=== PATIENT | male | born 1955 | race Caucasian/White ===

== ENCOUNTER 2019-06-13 14:57 | Emergency (ER) | payer MEDICAID, SELFPAY ==
[2019-06-13 15:00] VITALS: BP 112/80; PULSE 110; RESP 18; TEMP 37; O2SAT 100; BMI 23.2
--- NOTE | 2019-06-13 15:25 | ED.DCSUM_ITS ---
- ER Visit Summary Date of Service: 06/13/19 Chief Complaint: Right first toe pain History of Present Illness: The patient is a 64 M with no primary care physician. He reports that he has bilateral femoropopliteal bypasses approximately 5 to [address] Gao. States that over the course the past month he has had right great toe pain. He describes it as a burning, aching pain is 710 worsening a 10 currently. Is worsened by walking. Is relieved by dependent position and rest. He reports that he has paresthesias that are chronic and unchanged. Patient reports that he has seen Dr. Cain in the past, but that his insurance is changed and he ran out of his medications 2 months ago. He is not taking his Plavix. Review of systems: General: No fever, chills, cold sweats. Cardiovascular: No chest pain, palpitations. Respiratory: No cough, shortness of breath, dyspnea on exertion. Gastrointestinal: No abdominal pain, nausea, vomiting, diarrhea, melena, or hematochezia. Genitourinary: No dysuria, frequency, hematuria. Skin: No rash. Neuro: No headache, numbness, weakness. Physical Examination: Vitals: Stable. Afebrile. General: Well-nourished and well-developed. Head: Normocephalic atraumatic. Neck: Supple, no lymphadenopathy. No JVD. Nontender. Cardiovascular: Regular rate and rhythm. No murmurs. Respiratory: No respiratory distress. Clear to auscultation bilaterally. Abdominal: Soft, nontender, nondistended, normal bowel sounds. No guarding, rebound, or peritoneal signs. Back: Nontender. Extremities: Nontender, no edema. Superficial ulcers on the bottom of both feet that extends only through the superficial layer of the epidermis only. There is no erythema or induration to suggest infection. He does have slight erythema of the anterior surface of his right foot. I am unable to appreciate a dorsalis pedis or posterior tibial pulse bilaterally. There is 3 to 4-second capillary refill. Skin: Normal color, no rash. Neurologic: Alert and oriented ?3. Cranial nerves II through XII are intact. Normal strength and sensation. Psych: Normal affect. Test Results: ABIs show 0.3 posterior tibial on the right and 0.75 posterior tibial on the left. 0.17 dorsalis pedis on the right. 0.73 dorsalis pedis on the left. He has monophasic waveforms on the right posterior tibial and dorsalis pedis. Biphasic waveforms on the left posterior tibial and dorsalis pedis pulses. Emergency Department Course and Treatment: Patient is resting comfortably without complaint. Treatment Plan: The patient was given a refill for all of his medications. He w as discussed with his vascular surgeon Dr. Gao who would like him placed on Pletal and to have him follow-up in the office. I discussed the patient this time I do not know who accepts his insurance. He will be discharged instructions follow-up Dr. Ever Lehman and/or the [facility] in 1 to 2 weeks for another exam. Return to the emergency department for any worsening symptoms. Disposition: To home in improved and stable condition. Impression: 1. Peripheral arterial disease. This note was generated with [employer] dictation software. It may contain incorrect words, spelling, and punctuation that were not noted in review of the chart prior to signing ED Disposition - Plan for ED Patient: Disposition: Home or Assisted Living Instructions: Understanding Peripheral Artery Disease Prescriptions: Atorvastatin Calcium 40 mg PO DAILY #30 tab Prescription Printed Ferrous Sulfate 325 mg PO DAILY #30 tab Prescription Printed Folic Acid 1 mg PO DAILY #30 tab Prescription Printed Methotrexate 20 mg PO Q7D #32 tab Prescription Printed Pantoprazole Sodium 1 cap PO DAILY #30 vial Prescription Printed Clopidogrel Bisulfate [Plavix] 75 mg PO DAILY #30 tab Prescription Printed Cilostazol [Pletal] 100 mg PO BIDAC #60 tab Prescription Printed Lisinopril [Prinivil] 10 mg PO DAILY #30 tab Prescription Printed traMADol [Ultram] 50 mg PO Q4H PRN PRN #14 tab PRN Reason: Pain Score 4-10/10 Prescription Printed Referrals: Ever Lehman MD [NON-STAFF] - 1-2 Weeks [facility] [NON-STAFF] - 1-2 Weeks Additional Instructions: Follow up with Dr. Gao as soon as possible. His office number is .
--- NOTE | 2019-06-13 15:34 | ART_ITS ---
Reason For Study: PAD Procedure A bilateral lower extremity continuous wave Doppler with analog waveform analysis and ankle brachial indexes. Left Segmental Pressures Left brachial= 117mmHg. Left posterior tibial artery = 119mmHg. Left dorsalis pedis artery = 116mmHg. Left digit = 73 mmHg. The left dorsalis pedis waveforms are biphasic. The left posterior tibial artery waveforms are biphasic. Right Segmental Pressures Right brachial= 158mmHg. Right posterior tibial artery = 48mmHg. Right dorsalis pedis artery = 27mmHg. The right dorsalis pedis waveforms are monophasic. The right posterior tibial artery waveforms are monophasic. Indices The right ankle brachial index by the dorsalis pedis is 0.17. The right ankle brachial index by the posterior tibial artery is 0.30. The left ankle brachial index by the dorsalis pedis is 0.73. The left ankle brachial index by the posterior tibial artery is 0.75. The left digital-brachial index is 0.46. Interpretation Summary Severe or multi segmental peripheral vascular occlusive disease right lower extremity. Possible impending limb loss. Moderately severe left lower extremity arterial occlusive disease Abnormal digital PPG's consistent with severe small vessel disease or temperature effect. Ordering Physician: Ramon Elena Performed By: Veronique Yeager RVT
[2019-06-13] MEDS: Acetaminophen 500 MG Tablet 1000 MG PO (16:02)
[2019-06-13] MEDS: Clopidogrel Bisulfate 75 MG Tablet PO (16:03)
== END 2019-06-13 16:37 | disposition home or self-care (01) ==
PROVIDERS: Emergency Provider Emergency Medicine
DX: I73.9 Peripheral vascular disease, unspecified (principal); I10 Essential (primary) hypertension; Z79.02 Long term (current) use of antithrombotics/antiplatelets; Z79.899 Other long term (current) drug therapy
CPT/HCPCS: 93922; 99283

== ENCOUNTER → 2019-12-06 10:29 | Outpatient (CLI) | payer MEDICAID, SELFPAY ==
[2019-12-06 10:03] VITALS: BMI 23.2
[2019-12-06 12:16] LABS: Absolute Lymphocyte Count 0.95 X10^3/uL (0.83-4.51); Absolute Neutrophil Count 3.9 X10^3/uL (2.0-7.7); Basophil# 0.03 X10^3/uL; Basophil% 0.5 % (0-1); Eosinophil# 0.12 X10^3/uL; Eosinophils% 2.2 % (0-5); Hematocrit 41.3 % (40-54); Hemoglobin 13.7 g/dL (13.0-16.5); Lymphocyte # 0.95 X10^3/ul (4.0); Lymphocyte % 17.2 % (19-41); Mean Corp Hgb Conc 33.2 g/dL (32-36); Mean Corpuscular Hgb 31.7 pg (27.0-32.0); Mean Corpuscular Volume 95.6 fL (80-94); Mean Platelet Vol. 9.3 fl (6.2-12.0); Monocyte# 0.52 X10^3/uL; Monocyte% 9.4 % (0-10); NRBC Flagged by Analyzer 0 % (0-5); Neutrophil # 3.89 X10^3/uL (2.7-7.7); Neutrophil % 70.3 % (47-70); Platelet Count 395 K/mm3 (150-450); RBC Distribution Width CV 13.1 % (11.6-14.6); RBC Distribution Width SD 46.1 fl (35.1-43.9); Red Blood Count 4.32 M/mm3 (4.6-6.2); White Blood Count 5.5 K/mm3 (4.4-11.0)
[2019-12-06 12:24] LABS: AST(SGOT) 30 U/L (15-37); Alanine Aminotransfer ALT/SGPT 32 U/L (16-61); Alkaline Phosphatase 81 U/L (45-117); Anion Gap 3 (5-15); BUN 17 mg/dL (7-18); BUN/Creat Ratio 18.6 RATIO (10-20); Calcium,Total 9.3 mg/dL (8.5-10.1); Chloride 100 mmol/L (98-107); Cholesterol 177 mg/dL (200); Creatinine, Serum 0.92 mg/dL (0.70-1.30); EST Glomerular Filtration Rate 89 mL/min (>60); Est Glom Filt Rate - Afr Amer 108 mL/min (>60); Globulin 4.2 g/dL (2.2-4.2); Glucose 108 mg/dL (74-106); High Density Lipoprotein 55 mg/dL; Potassium 4.9 mmol/L (3.5-5.1); Protein, Total 8.2 g/dL (6.4-8.2); Sodium Level 131 mmol/L (136-145); Triglycerides 53 mg/dL; Very Low Density Lipoprotein 11 mg/dL (5-40)
== END ==
PROVIDERS: PCP Internal Medicine; Referring Provider Internal Medicine; Visit Provider Internal Medicine
DX: I10 Essential (primary) hypertension (principal); K21.9 Gastro-esophageal reflux disease without esophagitis
CPT/HCPCS: 36415; 80053; 80061; 85025

== ENCOUNTER → 2019-12-20 12:32 | Outpatient (CLI) | payer MEDICAID, SELFPAY ==
[2019-12-06 10:03] VITALS: BMI 23.2
--- NOTE | 2019-12-20 13:30 | CT_ITS ---
STUDY: LOW DOSE CT LUNG CANCER SCREENING REASON FOR EXAM: Male, 64 years old. LUNG SCREEN/1.5PPD X 40 YR. Hx of DVT''s with bypass surgery both legs RADIATION DOSAGE (If Supplied By Facility): CTDIvol = ( 2.01 ) mGy, DLP = ( 76.00 ) mGycm TECHNIQUE: No contrast was administered. Low dose technique was utilized (average mAS-38 and kVp 120). 1.25 mm axial source images with a slice interval of 1.25-mm were reconstructed in lung windows. 2.5 mm axial source images with a slice interval of 2.5-mm were reconstructed in lung windows. 5.0 mm axial source images with a slice interval of 5.0-mm were reconstructed in soft tissue windows. Nodule measured using lung windows on PACS and/or independent workstation with automated measurement of minimum and maximum diameter. Nodule measurement reported as average diameter rounded to the nearest whole number. Growth is defined as an increase ins size of greater than 1.5 mm. COMPARISON: None. NODULES: No suspicious nodules are seen. Emphysema: Hyperinflation. Emphysematous changes in both lungs worse in the upper lobes. Mild degree of scarring in the anterior aspect of the left upper lobe as well as in the posterior medial segments of both lower lobes with bullous formation and possible bronchiectasis. There is also evidence of a honeycombing in the peripheral aspects of both lower lobes. Endobronchial lesion: None Aorta: Calcified atherosclerotic plaques of the aortic arch. Coronary arteries: Coronary artery calcification. Heart: Unremarkable. Pulmonary artery: Mediastinal nodes: Small benign-appearing mediastinal lymph nodes. Other chest and abdominal findings: Degenerative changes of the visualized thoracic spine. CT/Low Dose CT Lung Screening IMPRESSION: Lung-RADS category 2 - Continue annual screening with LDCT in 12 months. IMPORTANT NOTES FOR USE: ACR Lung-RADS Version 1.0 Assessment Categories Release Date: September 05, 2013 Category: Coded 0-4 bases on nodule(s) with highest degree of suspicion. Negative screen is defined as categories 1 and 2; a positive screen is defined as categories 3 and 4. Category 3 and 4A nodules that are unchanged on interval CT should be coded as category 2, and individuals returned to screening in 12 months. Category 4X: Category 3 or 4 nodules with additional imaging findings that increase the suspicion of lung cancer, such as spiculation, GGN that doubles in size in 1 year, enlarged lymph notes, etc. Category Modifiers: S (significant finding unrelated to lung cancer) and C (prior history of treated lung cancer) may be added to the 0-4 Lung-RADS Electronically Signed: Emmanuel Kimball, at 14:04 EDT , Service support ,
== END ==
PROVIDERS: PCP Internal Medicine; Referring Provider Nurse Practitioner Family; Visit Provider Nurse Practitioner Family
DX: Z12.2 Encounter for screening for malignant neoplasm of respiratory organs (principal); F17.209 Nicotine dependence, unspecified, with unspecified nicotine-induced disorders
CPT/HCPCS: G0297

== ENCOUNTER 2020-01-13 05:21 | Day surgery (SDC) | payer MEDICAID, SELFPAY ==
[2019-12-06 10:03] VITALS: BMI 23.2
[2019-12-20 13:09] VITALS: BMI 21.2
[2020-01-13] VITALS (9 sets, daily range): BP systolic 132–172; BP diastolic 66–102; PULSE 71–85; RESP 16; TEMP 36.1–36.7; O2SAT 96–100; BMI 21.2
[2020-01-13] MEDS: Lactated Ringers 1,000 ML 100 ML IV ×2 (06:02→07:18)
--- NOTE | 2020-01-13 06:22 | PCM.HP.STD ---
Problem List (1) Screening for intestinal cancer Status: Acute History of Present Illness Date of Admission: 01/13/20 The patient is a 64 year old M who presents for screening colonoscopy today. He has never had a previous colonoscopy. He denies any family history of colon cancer. He denies bright red blood per rectum or melena. No abdominal pain. No weight loss. No cough or shortness of breath. 4 months ago he claims he had double bypass surgery to his right lower extremity. Claims he has Buerger's disease. Past Medical History Past Medical History (Chronic Problems): Chronic Problems (Last Reviewed 12/20/19 @ 13:02 by Christy Ware) Hyperlipidemia (Chronic) Peripheral vascular disease (Chronic) Hypertension (Chronic) Medical History: Medical History (Last Reviewed 12/20/19 @ 13:02 by Christy Ware) Back problem M53.9 Bone fracture T14.8XXA Carpal tunnel syndrome G56.00 GERD (gastroesophageal reflux disease) K21.9 H/O blood clots Z86.718 High cholesterol E78.00 History of blood transfusion Z92.89 History of pneumonia Z87.01 Psoriasis (a type of skin inflammation) L40.9 Vascular disease I99.9 Vitamin deficiency E56.9 history of ulcer Chronic bronchitis J42 Hypertension I10 Allergies Penicillins Adverse Reaction (Verified 01/13/20 05:45) Nausea/Vom/Diarrhea ALSO A HIGH FEVER Home Medications: Ambulatory Orders Medication Instructions Recorded atorvastatin 40 mg tablet 40 mg PO DAILY #90 tab 12/06/19 bupropion HCl 100 mg tablet,12 hr 100 mg PO BID #60 ea 12/06/19 sustained-release cilostazol 50 mg tablet 100 mg PO BIDAC #60 tab 12/06/19 lisinopril 10 mg tablet 10 mg PO DAILY #90 tab 12/06/19 pantoprazole 40 mg tablet,delayed 40 mg PO QAM #90 tab 12/06/19 release ferrous sulfate 325 mg (65 mg 125 mg PO DAILY #90 tab 12/07/19 iron) tablet folic acid 1 mg tablet 1 mg PO DAILY #90 tab 12/07/19 methotrexate sodium 2.5 mg tablet 20 mg PO Q7D #32 tab 12/07/19 clopidogrel 75 mg tablet 75 mg PO DAILY #90 tab 12/08/19 Surgical History: Surgical History (Last Updated 12/20/19 @ 13:05 by Christy Ware) History of fasciotomy Z98.890 R leg 09/2019 - [facility] History of tonsillectomy and adenoidectomy Z98.890 Smoking Status: Current some day smoker Tobacco Use: Cigars Review of Systems Constitutional: Denies: Fever Cardiovascular: Denies: Chest Pain Respiratory: Denies: Cough, Shortness of breath at rest Gastrointestinal: Denies: Abdominal Pain, Melena Endocrine: Denies: Change in Body Habitus VTE Information - Inpt Only VTE Present on Admission: No Patient Problems: Active and Suspected Problems (Last Reviewed 12/20/19 @ 13:02 by Christy Ware) Screening for intestinal cancer (Acute) - Physical Exam Vitals/I&O's: Vital Signs Temp Pulse Resp BP Pulse Ox 98.0 F 75 16 144/77 H 98 01/13/20 05:49 01/13/20 05:49 01/13/20 05:49 01/13/20 05:49 01/13/20 05:49 Oxygen Delivery Method Room Air Weight: 139 lb 15.896 oz Body Mass Index (BMI) 21.2 General: Alert, Oriented x3, Cooperative, No apparent distress Oral: Moist Mucosa Neck: Supple Lungs: Clear to auscultation, - - Increased anterior posterior diameter Cardiovascular: Regular rate, Regular Rhythm Abdomen: Bowel Sounds Present, Soft, Non Tender Extremities: No Calf Tenderness Neurological: - - Normal cognition Psych/Mental Status: Normal Affect Current Medications Lactated Ringer's () 1,000 mls @ 100 mls/hr IV .Q10H TOYA Last Admin: 01/13/20 06:02 Dose: 100 mls/hr Documented by: Assessment/Plan All Active Problems (Last Reviewed 12/20/19 @ 13:02 by Christy Ware) Screening for intestinal cancer (Acute) I recommended the patient a screening colonoscopy with possible biopsy or polypectomy is indicated. He is aware of the technique, benefit, risk, alternatives. He presents via open access. He has never had a previous colonoscopy. We will proceed at his discretion. Lorenzo Wei M.D., F.A.C.S. Procedure Criteria Procedure Type: Elective COVID Risk Discussion: The surgeon/proceduralist and patient have discussed in detail the risk of exposure to and/or potential harm posed by the COVID-19 virus with having a surgery/procedure at this time versus the risk of delaying the surgery/procedure. It is not possible to know either the risk of delaying the surgery or procedure or chance of getting an infection with perfect accuracy, but a joint decision was made between the patient and the surgeon/proceduralist to proceed at this time with the scheduled surgery/procedure as indicated on the consent form.
--- NOTE | 2020-01-13 06:30 | COLBX_PTH ---
PATIENT: LUIS EDUARDO PRATER LOC: EN U#:[id number] AGE/SX: 64/M ROOM: RE01/13/[address]: Dr. Lorenzo Wei MD : 1955 BED: DIS: 01/13/2020 SPEC #: [id number] RECD: 01/13/20 12:06 STATUS: BRIAN DRU #: [id number] LAUREN: 01/13/20 06:[address]: Lorenzo Wei DEPT: SURGICAL PATHOLOGY RECD BY: Santos Valladares ENTERED: 01/13/20 13:05 SP TYPE: COLON BX JEREL DR: Dr. Tate Strange MD Tissues: A - Descending colon B - Sigmoid colon biopsy C - Sigmoid colon biopsy Procedures: Surgery Specimen Level IV HEADER OPERATION: Colonoscopy - open access (MOD) PRE-OP DIAGNOSIS: Screening TISSUE SUBMITTED: A - Descending polyp, B - Proximal sigmoid polyp, C - Distal sigmoid polyp biopsy MICROSCOPIC DIAGNOSIS A. Descending colon, biopsy: Tubular adenoma. B. Proximal sigmoid colon polyp, biopsy: Tubular adenoma. C. Distal sigmoid colon polyp, biopsy: Fragments of tubular adenoma. AM:vidal 01/17/20 MICROSCOPIC DESCRIPTION Slides are reviewed. GROSS DESCRIPTION A - Received in fixative is one container labeled with the patient's name and designated descending polyp. The specimen consists of a piece of britt-pink polyp measuring 0.5 x 0.5 x 0.3 cm. The specimen is totally submitted in one cassette. B - Received in fixative is one container labeled with the patient's name and designated proximal sigmoid polyp. The specimen consists of a britt-pink polyp measuring 0.7 x 0.5 x 0.3 cm. The specimen is totally submitted in one cassette. C - Received in fixative is one container labeled with the patient's name and designated distal sigmoid polyp biopsy. The specimen consists of multiple irregular fragments of light britt soft tissue that in aggregate measure 0.7 x 0.5 x 0.1 cm. The specimen is totally submitted in one cassette. / SJ:vidal 01/13/20 TC:5 CPT: 73993 x3
--- NOTE | 2020-01-13 07:10 | OP.COLON_ITS ---
Patient Name: Ishmael Roman Procedure Date: 01/13/2020 6:10 AM Date of : 1955 Age: 64 Procedure: Colonoscopy Indications: Screening for colorectal malignant neoplasm Providers: Lorenzo Wei MD Referring MD: Tate Strange MD Medicines: Midazolam 6 mg IV, Meperidine 100 mg IV Patient Profile: Last Colonoscopy: none. The patient's first colonoscopy is today. Complications: No immediate complications. Procedure: Pre-Anesthesia Assessment: - Prior to the procedure, a History and Physical was performed, and patient medications and allergies were reviewed. The patient's tolerance of previous anesthesia was also reviewed. The risks and benefits of the procedure and the sedation options and risks were discussed with the patient. All questions were answered, and informed consent was obtained. Prior Anticoagulants: The patient has taken Plavix (clopidogrel), last dose was 2 days prior to procedure. ASA Grade Assessment: II - A patient with mild systemic disease. After reviewing the risks and benefits, the patient was deemed in satisfactory condition to undergo the procedure. After I obtained informed consent, the scope was passed under direct vision. Throughout the procedure, the patient's blood pressure, pulse, and oxygen saturations were monitored continuously. The colonoscope was introduced through the anus and advanced to the cecum, identified by appendiceal orifice and ileocecal valve. The colonoscopy was performed with moderate difficulty due to a tortuous colon. Successful completion of the procedure was aided by increasing the dose of sedation medication, changing the patient to a supine position and using manual pressure. The patient tolerated the procedure well. The quality of the bowel preparation was good. The ileocecal valve and the appendiceal orifice were photographed. Moderate Sedation: Moderate (conscious) sedation was personally administered by the endoscopist. The following parameters were monitored: oxygen saturation, heart rate, blood pressure, and response to care. Total physician intraservice time was 20 minutes. Scope In: 6:35:08 AM Scope Withdrawal Time 0 hours 17 minutes 25 seconds Scope Out: 7:04:45 AM Total Procedure Duration Time 0 hours 29 minutes 37 seconds Findings: Hemorrhoids were found on perianal exam. A 8 mm polyp was found in the mid descending colon. The polyp was semi-pedunculated. The polyp was removed with a hot snare. Resection and retrieval were complete. A 8 mm polyp was found in the proximal sigmoid colon. The polyp was semi-pedunculated. The polyp was removed with a hot snare. Resection and retrieval were complete. A 7 mm polyp was found in the distal sigmoid colon. The polyp was sessile. The polyp was removed with a cold biopsy forceps. Resection and retrieval were complete. Multiple diverticula were found in the sigmoid colon and descending colon. Impression: - Hemorrhoids found on perianal exam. - One 8 mm polyp in the mid descending colon, removed with a hot snare. Resected and retrieved. - One 8 mm polyp in the proximal sigmoid colon, removed with a hot snare. Resected and retrieved. - One 7 mm polyp in the distal sigmoid colon, removed with a cold biopsy forceps. Resected and retrieved. - Diverticulosis in the sigmoid colon and in the descending colon. Recommendation: - Discharge patient to home. - Resume previous diet. - Continue present medications. - Repeat colonoscopy in 5 years for surveillance based on pathology results. - Telephone my office for pathology results in 1 week. Procedure Code(s): --- Professional --- 63481, Colonoscopy, flexible; with removal of tumor(s), polyp(s), or other lesion(s) by snare technique 64718, 59, Colonoscopy, flexible; with biopsy, single or multiple 68655, 59, Moderate sedation services provided by the same physician or other qualified health rn progressive care unit performing the diagnostic or therapeutic service that the sedation supports, requiring the presence of an independent trained observer to assist in the monitoring of the patient's level of consciousness and physiological status; initial 15 minutes of intraservice time, patient age 5 years or older Diagnosis Code(s): --- Professional --- Z12.11, Encounter for screening for malignant neoplasm of colon K64.9, Unspecified hemorrhoids D12.4, Benign neoplasm of descending colon D12.5, Benign neoplasm of sigmoid colon K57.30, Diverticulosis of large intestine without perforation or abscess without bleeding CPT copyright 2017 [employer]. All rights reserved. The codes documented in this report are preliminary and upon hand thermal cutter review may be revised to meet current compliance requirements. Lorenzo Wei MD 01/13/2020 7:10:23 AM This report has been signed electronically. Number of Addenda: 0 Note Initiated On: 01/13/2020 6:10 AM
--- NOTE | 2020-01-13 07:10 | OP.CCLET_ITS ---
01/13/2020 Tate Strange MD [address] [place] [address] [place] [address] Re : Colonoscopy procedure for Ishmael Roman Dear Dr. Strange This procedure was performed on Monday, January 13, 2020. My impressions and recommendations are as follows: Impressions : - Hemorrhoids found on perianal exam. - One 8 mm polyp in the mid descending colon, removed with a hot snare. Resected and retrieved. - One 8 mm polyp in the proximal sigmoid colon, removed with a hot snare. Resected and retrieved. - One 7 mm polyp in the distal sigmoid colon, removed with a cold biopsy forceps. Resected and retrieved. - Diverticulosis in the sigmoid colon and in the descending colon. Recommendations : - Discharge patient to home. - Resume previous diet. - Continue present medications. - Repeat colonoscopy in 5 years for surveillance based on pathology results. - Telephone my office for pathology results in 1 week. My findings are described in the full procedure note, which is enclosed. If I can be of further assistance, please feel free to contact me at Doctor phone number(s): Work: . Sincerely, Lorenzo Wei MD 01/13/2020 7:10:23 AM This report has been signed electronically.
== END 2020-01-13 08:15 | disposition home or self-care (01) ==
LOC: EN 05:23 → AC 05:23
PROVIDERS: Anesthesiology; PCP Internal Medicine; Referring Provider Internal Medicine; Visit Provider Surgery
PROC: 0DJD8ZZ Inspection of Lower Intestinal Tract, Via Natural or Artificial Opening Endoscopic (ICD-10-PCS; CPT 45378; principal; 2020-01-13 06:25)
DX: Z12.11 Encounter for screening for malignant neoplasm of colon (principal); D12.4 Benign neoplasm of descending colon; D12.5 Benign neoplasm of sigmoid colon; K64.9 Unspecified hemorrhoids; K57.30 Diverticulosis of large intestine without perforation or abscess without bleeding; K21.9 Gastro-esophageal reflux disease without esophagitis; I73.9 Peripheral vascular disease, unspecified; I10 Essential (primary) hypertension; E78.00 Pure hypercholesterolemia, unspecified; F17.290 Nicotine dependence, other tobacco product, uncomplicated; Z88.0 Allergy status to penicillin; Z79.02 Long term (current) use of antithrombotics/antiplatelets; Z79.899 Other long term (current) drug therapy; Z11.59 Encounter for screening for other viral diseases
CPT/HCPCS: 45380; 45385; 87635; 88305; 94799; 99152; 99153; C9803; J7120; U0003

== ENCOUNTER → 2020-03-06 11:04 | Outpatient (CLI) | payer MEDICAID, SELFPAY ==
[2020-03-06 10:00] VITALS: BMI 21.7
[2020-03-06 13:15] LABS: Anion Gap 6 (5-15); BUN 13 mg/dL (7-18); BUN/Creat Ratio 14.5 RATIO (10-20); Calcium,Total 9.6 mg/dL (8.5-10.1); Chloride 102 mmol/L (98-107); EST Glomerular Filtration Rate 91 mL/min (>60); Est Glom Filt Rate - Afr Amer 110 mL/min (>60); Glucose 99 mg/dL (74-106); Potassium 5.3 mmol/L (3.5-5.1); Sodium Level 136 mmol/L (136-145)
== END ==
PROVIDERS: PCP Internal Medicine; Referring Provider Internal Medicine; Visit Provider Internal Medicine
DX: I10 Essential (primary) hypertension (principal)
CPT/HCPCS: 36415; 80048

== ENCOUNTER → 2020-04-12 12:57 | Outpatient (CLI) | payer MEDICAID, SELFPAY ==
[2020-03-06 10:00] VITALS: BMI 21.7
[2020-04-12 14:53] LABS: Anion Gap 8 (5-15); BUN 14 mg/dL (7-18); Calcium,Total 9.4 mg/dL (8.5-10.1); Chloride 101 mmol/L (98-107); Creatinine, Serum 0.87 mg/dL (0.70-1.30); EST Glomerular Filtration Rate 94 mL/min (>60); Est Glom Filt Rate - Afr Amer 114 mL/min (>60); Glucose 80 mg/dL (74-106); Potassium 4.2 mmol/L (3.5-5.1); Sodium Level 135 mmol/L (136-145)
== END ==
PROVIDERS: PCP Internal Medicine; Referring Provider Internal Medicine; Visit Provider Internal Medicine
DX: E87.5 Hyperkalemia (principal)
CPT/HCPCS: 36415; 80048

== ENCOUNTER → 2020-06-04 11:20 | Outpatient (CLI) | payer MEDICAID, SELFPAY ==
[2020-06-04 12:42] LABS: Absolute Lymphocyte Count 0.69 X10^3/uL (0.83-4.51); Absolute Neutrophil Count 7.2 X10^3/uL (2.0-7.7); Basophil# 0.02 X10^3/uL; Basophil% 0.2 % (0-1); Eosinophil# 0.15 X10^3/uL; Eosinophils% 1.8 % (0-5); Hematocrit 33.6 % (40-54); Lymphocyte # 0.69 X10^3/ul (4.0); Lymphocyte % 8.1 % (19-41); Mean Corp Hgb Conc 32.7 g/dL (32-36); Mean Corpuscular Hgb 31.9 pg (27.0-32.0); Mean Corpuscular Volume 97.4 fL (80-94); Mean Platelet Vol. 9.4 fl (6.2-12.0); Monocyte# 0.47 X10^3/uL; Monocyte% 5.5 % (0-10); NRBC Flagged by Analyzer 0 % (0-5); Neutrophil # 7.18 X10^3/uL (2.7-7.7); Neutrophil % 83.9 % (47-70); Platelet Count 401 K/mm3 (150-450); RBC Distribution Width CV 14.1 % (11.6-14.6); RBC Distribution Width SD 49.1 fl (35.1-43.9); Red Blood Count 3.45 M/mm3 (4.6-6.2); White Blood Count 8.6 K/mm3 (4.4-11.0)
--- NOTE | 2020-06-04 13:08 | VDLE_ITS ---
Reason For Study: Swelling RIGHT GSV is normal. CFV is compressible, spontaneous, phasic, competent and demonstrates normal augmentation. FV is compressible, spontaneous, phasic, competent and demonstrates normal augmentation. POP V is compressible, spontaneous, phasic, competent and demonstrates normal augmentation. T/P Trunk is compressible. PTV is compressible. RT PerV is compressible. INCIDENTAL FINDINGS No flow noted in the rigth FA, Charlee and Bypass graft from prox thigh to mid calf. Graft anast. with PHOTOGRAMMETRY AIRPLANE PILOT distal is occluded. Procedure This is a venous duplex using B-mode, color flow and spectral Doppler. Exam performed in department. A preliminary report was called and/or faxed to [facility]. Interpretation Summary There is no evidence of right lower extremity deep vein thrombosis. Right great saphenous vein appears patent and compressible segmentally. Incidental finding demonstrating a bypass graft from the proximal thigh to the mid calf which is thrombosed. Incidental findings suggesting no flow in the right femoral artery, popliteal artery, posterior tibial artery. Ordering Physician: Tate Strange Referring Physician: Tate Strange Performed By: Veronique Yeager RVT
[2020-06-04 13:21] LABS: ALB/GLOB Ratio 0.9 RATIO (0.9-2.4); AST(SGOT) 26 U/L (15-37); Alanine Aminotransfer ALT/SGPT 16 U/L (16-61); Albumin, Serum 3.6 g/dL (3.2-5.0); Alkaline Phosphatase 88 U/L (45-117); Anion Gap 9 (5-15); BUN 13 mg/dL (7-18); Calcium,Total 8.7 mg/dL (8.5-10.1); Chloride 102 mmol/L (98-107); EST Glomerular Filtration Rate 80 mL/min (>60); Est Glom Filt Rate - Afr Amer 97 mL/min (>60); Glucose 82 mg/dL (74-106); Potassium 4.8 mmol/L (3.5-5.1); Protein, Total 7.6 g/dL (6.4-8.2); Sodium Level 136 mmol/L (136-145)
== END ==
PROVIDERS: PCP Internal Medicine; Referring Provider Internal Medicine; Visit Provider Internal Medicine
DX: M79.89 Other specified soft tissue disorders (principal); M79.671 Pain in right foot; L40.9 Psoriasis, unspecified
CPT/HCPCS: 36415; 80053; 85025; 93971

== ENCOUNTER → 2020-07-19 13:49 | Outpatient (CLI) | payer MEDICAID, SELFPAY ==
--- NOTE | 2020-07-19 13:50 | ECHOD_ITS ---
Reason For Study: MURMUR Procedure This was a 2D Doppler, Color Flow transthoracic echocardiogram. Exam performed in department. Left Ventricle Normal LV size. Left ventricular systolic function is normal. The estimated ejection fraction is 65 %. Stage 1 diastolic dysfunction. No regional wall motion abnormalities noted. Right Ventricle Normal RV size. Normal systolic function. Atria Normal left atrium. Normal right atrium. Mitral Valve There is severe mitral annular calcification. Mild (1+) mitral valve insufficiency. Tricuspid Valve Normal tricuspid valve. Mild (1+) tricuspid valve insufficiency. Pulmonary artery systolic pressure is 24 mmHg. Aortic Valve Trisinus/trileaflet aortic valve. Pulmonic Valve Normal pulmonic valve. Great Vessels Normal aortic root. The pulmonary artery is normal size. Normal inferior vena cava. Pericardium/Pleural No pericardial effusion. MMode/2D Measurements & Calculations LVIDd: 4.2 cm IVSd: 1.1 cm LAV(MOD-bp): 40.6 ml LVIDs: 2.8 cm LVPWd: 1.1 cm LAV(MOD-bp) Indexed: 22.6 ml/m2 RVDd: 3.3 cm FS: 33.2 % LAV(MOD-sp2): 36.4 ml LAV(MOD-sp4): 38.1 ml LA dimension(2D): 3.0 cm LA A4 area: 13.8 cm2 RA A4 area: 12.8 cm2 Time Measurements MV dec time: 0.15 sec Doppler Measurements & Calculations MV E max alok: 115.8 cm/sec Lat Peak E' Alok: 9.2 cm/sec Med Peak E' Alok: 7.1 cm/sec MV A max alok: 155.5 cm/sec E/E' lat: 12.6 E/E' med: 16.2 MV E/A: 0.74 MV V2 max: 159.2 cm/sec Ao V2 max: 257.6 cm/sec LV V1 max: 87.6 cm/sec MV max P.1 mmHg Ao max P.6 mmHg LV V1 max P.1 mmHg MV V2 mean: 98.0 cm/sec Ao V2 mean: 189.4 cm/sec LV V1 mean P.9 mmHg MV mean P.3 mmHg Ao mean P.6 mmHg LV V1 mean: 66.4 cm/sec MV V2 VTI: 23.8 cm Ao V2 VTI: 41.8 cm LV V1 VTI: 16.6 cm PA V2 max: 125.8 cm/sec TR max alok: 231.8 cm/sec TR max P.8 mmHg Interpretation Summary Normal LV size. Left ventricular systolic function is normal. The estimated ejection fraction is 65 %. Mild (1+) mitral valve insufficiency. Stage 1 diastolic dysfunction. There is severe mitral annular calcification. Ordering Physician: Alie^Tate^^^ Referring Physician: Tate Strange Performed By: Inna Manuel, RDCS, RVT
== END ==
PROVIDERS: PCP Internal Medicine; Referring Provider Internal Medicine; Visit Provider Internal Medicine
DX: I10 Essential (primary) hypertension (principal); R01.1 Cardiac murmur, unspecified
CPT/HCPCS: 93306

== ENCOUNTER 2020-08-23 15:08 | Outpatient (RCR) | payer MEDICAID, SELFPAY ==
[2020-08-22 14:09] VITALS: BMI 18.5
== END 2020-10-16 23:59 ==
LOC: IMMUN 15:08
PROVIDERS: PCP Internal Medicine; Visit Provider Family Medicine
DX: Z23 Encounter for immunization (principal)
CPT/HCPCS: 0001A; 0002A; 91300

== ENCOUNTER → 2020-09-03 10:10 | Outpatient (CLI) | payer MEDICAID, SELFPAY ==
[2020-09-03 12:28] LABS: Absolute Lymphocyte Count 0.67 X10^3/uL (0.83-4.51); Absolute Neutrophil Count 2.7 X10^3/uL (2.0-7.7); Basophil# 0.02 X10^3/uL; Basophil% 0.5 % (0-1); Eosinophil# 0.09 X10^3/uL; Eosinophils% 2.3 % (0-5); Hemoglobin 11.5 g/dL (13.0-16.5); Lymphocyte # 0.67 X10^3/ul (0.83-4.51); Lymphocyte % 17.5 % (19-41); Mean Corp Hgb Conc 31.9 g/dL (32-36); Mean Corpuscular Hgb 31.9 pg (27.0-32.0); Mean Corpuscular Volume 99.7 fL (80-94); Monocyte# 0.36 X10^3/uL; Monocyte% 9.4 % (0-10); NRBC Flagged by Analyzer 0 % (0-5); Neutrophil # 2.68 X10^3/uL (2.7-7.7); Platelet Count 360 K/mm3 (150-450); RBC Distribution Width SD 58.1 fl (35.1-43.9); Red Blood Count 3.61 M/mm3 (4.6-6.2); White Blood Count 3.8 K/mm3 (4.4-11.0)
[2020-09-03 13:13] LABS: AST(SGOT) 21 U/L (15-37); Alanine Aminotransfer ALT/SGPT 30 U/L (16-61); Albumin, Serum 3.7 g/dL (3.2-5.0); Alkaline Phosphatase 81 U/L (45-117); Anion Gap 7 (5-15); BUN 10 mg/dL (7-18); BUN/Creat Ratio 13.7 RATIO (10-20); Calcium,Total 9.2 mg/dL (8.5-10.1); Chloride 96 mmol/L (98-107); Creatinine, Serum 0.73 mg/dL (0.70-1.30); EST Glomerular Filtration Rate 115 mL/min (>60); Est Glom Filt Rate - Afr Amer 139 mL/min (>60); Globulin 3.8 g/dL (2.2-4.2); Glucose 78 mg/dL (74-106); Potassium 4.3 mmol/L (3.5-5.1); Protein, Total 7.5 g/dL (6.4-8.2); Sodium Level 131 mmol/L (136-145)
== END ==
PROVIDERS: PCP Internal Medicine; Visit Provider Internal Medicine
DX: L40.9 Psoriasis, unspecified (principal)
CPT/HCPCS: 36415; 80053; 85025

== ENCOUNTER → 2020-12-03 11:14 | Outpatient (CLI) | payer MEDICAID, SELFPAY ==
[2020-12-03 10:59] VITALS: BMI 18.5
[2020-12-03 12:23] LABS: Absolute Lymphocyte Count 1.04 X10^3/uL (0.83-4.51); Absolute Neutrophil Count 4.7 X10^3/uL (2.0-7.7); Basophil# 0.04 X10^3/uL; Basophil% 0.6 % (0-1); Eosinophil# 0.13 X10^3/uL; Hematocrit 39.9 % (40-54); Lymphocyte # 1.04 X10^3/ul (0.83-4.51); Lymphocyte % 16.1 % (19-41); Mean Corp Hgb Conc 32.6 g/dL (32-36); Mean Corpuscular Hgb 31.6 pg (27.0-32.0); Mean Corpuscular Volume 96.8 fL (80-94); Mean Platelet Vol. 9.3 fl (6.2-12.0); Monocyte# 0.55 X10^3/uL; Monocyte% 8.5 % (0-10); NRBC Flagged by Analyzer 0 % (0-5); Neutrophil # 4.67 X10^3/uL (2.7-7.7); Neutrophil % 72.5 % (47-70); Platelet Count 393 K/mm3 (150-450); RBC Distribution Width CV 15.3 % (11.6-14.6); RBC Distribution Width SD 53.8 fl (35.1-43.9); Red Blood Count 4.12 M/mm3 (4.6-6.2); White Blood Count 6.5 K/mm3 (4.4-11.0)
[2020-12-03 12:48] LABS: ALB/GLOB Ratio 0.9 RATIO (0.9-2.4); AST(SGOT) 21 U/L (15-37); Alanine Aminotransfer ALT/SGPT 29 U/L (16-61); Albumin, Serum 3.7 g/dL (3.2-5.0); Alkaline Phosphatase 82 U/L (45-117); Anion Gap 5 (5-15); BUN 15 mg/dL (7-18); Chloride 104 mmol/L (98-107); Creatinine, Serum 0.71 mg/dL (0.70-1.30); EST Glomerular Filtration Rate 118 mL/min (>60); Est Glom Filt Rate - Afr Amer 143 mL/min (>60); Globulin 4.3 g/dL (2.2-4.2); Glucose 97 mg/dL (74-106); Potassium 4.5 mmol/L (3.5-5.1); Sodium Level 135 mmol/L (136-145)
== END ==
PROVIDERS: PCP Internal Medicine; Referring Provider Internal Medicine; Visit Provider Internal Medicine
DX: I10 Essential (primary) hypertension (principal); L40.9 Psoriasis, unspecified
CPT/HCPCS: 36415; 80053; 85025

== ENCOUNTER → 2021-03-04 14:16 | Outpatient (CLI) | payer MEDICAID, SELFPAY ==
[2021-03-04 15:30] LABS: Absolute Lymphocyte Count 1.32 X10^3/uL (0.83-4.51); Absolute Neutrophil Count 2.7 X10^3/uL (2.0-7.7); Basophil# 0.04 X10^3/uL; Basophil% 0.9 % (0-1); Eosinophils% 2.2 % (0-5); Hematocrit 37.6 % (40-54); Lymphocyte # 1.32 X10^3/ul (0.83-4.51); Lymphocyte % 28.4 % (19-41); Mean Corp Hgb Conc 31.9 g/dL (32-36); Mean Corpuscular Hgb 31.2 pg (27.0-32.0); Mean Corpuscular Volume 97.7 fL (80-94); Mean Platelet Vol. 9.7 fl (6.2-12.0); Monocyte# 0.51 X10^3/uL; NRBC Flagged by Analyzer 0 % (0-5); Neutrophil # 2.67 X10^3/uL (2.7-7.7); Neutrophil % 57.3 % (47-70); Platelet Count 437 K/mm3 (150-450); RBC Distribution Width CV 16.8 % (11.6-14.6); RBC Distribution Width SD 60.4 fl (35.1-43.9); Red Blood Count 3.85 M/mm3 (4.6-6.2); White Blood Count 4.7 K/mm3 (4.4-11.0)
[2021-03-04 15:57] LABS: AST(SGOT) 23 U/L (15-37); Alanine Aminotransfer ALT/SGPT 30 U/L (16-61); Albumin, Serum 3.8 g/dL (3.2-5.0); Alkaline Phosphatase 73 U/L (45-117); Anion Gap 7 (5-15); BUN 12 mg/dL (7-18); BUN/Creat Ratio 14.4 RATIO (10-20); Calcium,Total 8.9 mg/dL (8.5-10.1); Chloride 106 mmol/L (98-107); Creatinine, Serum 0.83 mg/dL (0.70-1.30); EST Glomerular Filtration Rate 99 mL/min (>60); Est Glom Filt Rate - Afr Amer 120 mL/min (>60); Globulin 3.7 g/dL (2.2-4.2); Glucose 82 mg/dL (74-106); Protein, Total 7.5 g/dL (6.4-8.2); Sodium Level 140 mmol/L (136-145)
== END ==
PROVIDERS: PCP Internal Medicine; Visit Provider Internal Medicine
DX: L40.9 Psoriasis, unspecified (principal)
CPT/HCPCS: 36415; 80053; 85025

== ENCOUNTER 2021-06-18 15:39 | Outpatient (CLI) | payer MEDICAID, SELFPAY ==
[2021-06-18 16:44] LABS: Absolute Lymphocyte Count 1.22 X10^3/uL (0.83-4.51); Absolute Neutrophil Count 4.6 X10^3/uL (2.0-7.7); Basophil# 0.03 X10^3/uL; Basophil% 0.5 % (0-1); Eosinophil# 0.07 X10^3/uL; Eosinophils% 1.1 % (0-5); Hematocrit 36.3 % (40-54); Hemoglobin 12.2 g/dL (13.0-16.5); Lymphocyte # 1.22 X10^3/ul (0.83-4.51); Lymphocyte % 18.8 % (19-41); Mean Corp Hgb Conc 33.6 g/dL (32-36); Mean Corpuscular Hgb 30.9 pg (27.0-32.0); Mean Corpuscular Volume 91.9 fL (80-94); Mean Platelet Vol. 9.4 fl (6.2-12.0); Monocyte# 0.54 X10^3/uL; Monocyte% 8.3 % (0-10); NRBC Flagged by Analyzer 0 % (0-5); Neutrophil # 4.62 X10^3/uL (2.7-7.7); Neutrophil % 71.1 % (47-70); Platelet Count 351 K/mm3 (150-450); RBC Distribution Width CV 15.4 % (11.6-14.6); RBC Distribution Width SD 51.5 fl (35.1-43.9); Red Blood Count 3.95 M/mm3 (4.6-6.2); White Blood Count 6.5 K/mm3 (4.4-11.0)
[2021-06-18 17:05] LABS: ALB/GLOB Ratio 0.9 RATIO (0.9-2.4); AST(SGOT) 23 U/L (15-37); Alanine Aminotransfer ALT/SGPT 27 U/L (16-61); Albumin, Serum 3.6 g/dL (3.2-5.0); Alkaline Phosphatase 102 U/L (45-117); Anion Gap 10 (5-15); BUN 25 mg/dL (7-18); BUN/Creat Ratio 10.8 RATIO (10-20); Calcium,Total 8.9 mg/dL (8.5-10.1); Chloride 96 mmol/L (98-107); Creatinine, Serum 2.31 mg/dL (0.70-1.30); EST Glomerular Filtration Rate 30 mL/min (>60); Est Glom Filt Rate - Afr Amer 37 mL/min (>60); Globulin 4.2 g/dL (2.2-4.2); Glucose 92 mg/dL (74-106); Protein, Total 7.8 g/dL (6.4-8.2); Sodium Level 131 mmol/L (136-145)
== END 2021-06-18 23:59 | disposition home or self-care (01) ==
LOC: BIMLAB 15:40
PROVIDERS: PCP Internal Medicine; Referring Provider Internal Medicine; Visit Provider Internal Medicine
DX: I10 Essential (primary) hypertension (principal)
CPT/HCPCS: 36415; 80053; 85025

== ENCOUNTER → 2021-11-12 | Outpatient (CLI) | payer MEDICAID, SELFPAY ==
--- NOTE | 2021-11-12 15:52 | CT_ITS ---
STUDY: CT CHEST WITHOUT CONTRAST- LOW DOSE SCREENING PROTOCOL REASON FOR EXAM: Male, 66 years old. Current smoker. 41 pack per year history. No current symptoms of lung cancer or pulmonary infection. Shared decision-making with referring PCP documented in patient''s record. RADIATION DOSAGE (If Supplied By Facility): CTDIvol = ( 3.02 ) mGy, DLP = ( 118.52 ) mGycm TECHNIQUE: Low dose screening CT examination performed from the base of the neck to the upper abdomen. Sagittal and coronal reformatted images performed. Sagittal and coronal MIP images provided. The measurements provided are average, rounded measurements per ACR guidelines. COMPARISON: 12/20/2019 FINDINGS: Mild emphysema. 1 cm noncalcified nodule in the left lower lobe of the lungs on image 181 and correlation with PET CT scan is recommended. If PET negative, follow-up CT is recommended in 6 months to document stability. There is no demonstrated pleural abnormality. Normal heart and pericardium. There are calcifications of the coronary arteries. Normal mediastinum. Normal hilar regions. Normal unenhanced pulmonary arteries. Normal aorta arch and descending thoracic aorta. Normal osseous structures. There is no demonstrated abnormality of the visualized upper abdomen. CT/Low Dose CT Lung Screening IMPRESSION: 1. Mild emphysema with a new 1 cm noncalcified left lower lobe nodule and follow-up PET CT scan is recommended. 2. Incidental findings include calcified coronary plaque. ASSESSMENT CATEGORY: LungRADS 4A - Suspicious. Recommend follow up LDCT in 3 months. PET/CT may be used if there is an 8 mm or larger solid component. Electronically Signed: Jose F Pickard MD at 17:09 EDT ,
== END | disposition home or self-care (01) ==
LOC: CT 15:42
PROVIDERS: PCP Internal Medicine; Referring Provider Nurse Practitioner Family; Visit Provider Nurse Practitioner Family
DX: Z12.2 Encounter for screening for malignant neoplasm of respiratory organs (principal); Z87.891 Personal history of nicotine dependence
CPT/HCPCS: 71271

== ENCOUNTER → 2021-12-04 | Outpatient (CLI) | payer MEDICAID, SELFPAY ==
--- NOTE | 2021-12-04 14:45 | PET_ITS ---
EXAMINATION: FDG PET-CT INDICATIONS: A 66-year-old male with history of pulmonary nodularity. COMPARISON EXAMINATION: CT of the chest report dated 11/12/21 INDEX LESION SIZE SUV INTERPRETATION Left lung-left lower lobe 8.9-mm 3.6 Fulfills quantitative criteria for viable neoplasm, histopathologic analysis recommended NON-INDEX LESION SIZE SUV INTERPRETATION Bilateral thoracic perihilum 3.0 Quantitative criteria for viable neoplasm are not fulfilled Anterior oral cavity 7.8 (max) Clinical examination recommended, no discernible soft tissue mass formation TECHNIQUE: Following the intravenous administration of 9.63 mCi of F-18 deoxyglucose via the right antecubital fossa, multiplanar image acquisitions of the neck, chest, abdomen and pelvis to level of mid thigh, obtained at one hour post radiopharmaceutical administration contemporaneously interpreted with the current CT of the neck, chest, abdomen and pelvis, to level of mid thigh, dated 12/04/[address] of the chest report dated 11/12/21 reveals: BLOOD GLUCOSE LEVEL:?? 99 mg/dl?HEIGHT:?68 inches?WEIGHT: 140 lbs. FINDINGS: Head/Neck: There is increased radiopharmaceutical concentration identified in the oral cavity anteriorly to the left of the midline. Uptake appears associated with soft tissue musculature without evidence of asymmetric soft tissue thickening generating a calculated standard uptake value of 7.8. There is no evidence of abnormal increased glucose metabolism in the pharyngeal mucosal space, parapharyngeal space, bilateral-lateral and anterior neck, hypopharynx and distribution of the laryngeal structures. The visualized portion of the cerebral cortical-subcortical structures demonstrate symmetric and preserved glucose metabolism. CHEST: A focus of increased glucose metabolism is identified in the left lower posterior lung zone generating a calculated maximal standard uptake value of 3.6. The maximal axial diameter of the metabolic, morphologic abnormality is 8.9-mm. Mild increased glucose metabolism is identified in the carinal mediastinum and bilateral thoracic perihilum generating a calculated maximal standard uptake value of 3.1. Quantitative criteria for viable neoplasm are not fulfilled. Mild increased glucose metabolism is identified in the right lower posteromedial lung zone generating a calculated maximal standard uptake value of 1.6. Prominent radiopharmaceutical concentration is identified in the left ventricular myocardium commensurate with the [place]. Pertinent chest CT findings are as follows. Subtle paraseptal emphysematous changes are noted in the bilateral upper lung zones. Right-left axillary soft tissue densities are non-glucose avid. There is atherosclerotic calcification defined in the thoracic aorta without evidence of dilatation-aneurysm formation. Coronary arterial calcification is observed. Abdomen/Pelvis: Normal physiologic distribution of the radiopharmaceutical is apparent in the hepatic and splenic parenchyma, both renal units, bladder and visualized intestinal tract. Pertinent abdomen and pelvis CT findings are as follows. There is atherosclerotic calcification defined in the abdominal aorta without evidence of dilatation-aneurysm formation. Abdominal-pelvic arterial calcification is observed. An aortic bi-iliac graft placement is noted. The maximal axial diameter of the abdominal aorta is 36.7-mm. Bilateral inguinal soft tissue densities are non-glucose avid. Skeletal: Degenerative changes demonstrate no evidence of increased glucose metabolism. There are no well-defined sclerotic-lytic changes manifest on review of the appendicular-axial skeletal structures. PET/PET/CT Tumor Base -Thigh Init IMPRESSION: 1. ABNORMAL EXAMINATION INDICATIVE OF MALIGNANT VIABLE NEOPLASM. 2. Increased glucose concentration identified in the left hemithorax pulmonary parenchyma, left lower lobe, fulfills quantitative criteria for viable neoplasm. Histopathologic analysis is recommended. 3. The asymmetric increase in tracer uptake noted in the oral cavity anteriorly to the left of the midline may be further investigated with clinical examination. No definitive soft tissue abnormality is noted in the analogous location. 4. The bilateral thoracic perihilar increase in radiopharmaceutical concentration does not fulfill quantitative criteria for viable neoplasm. (Wm et al, Journal of Clinical Oncology 16:2142, 1998). Electronic Signature Jose F Ball D.O. Accurate Quantification of SUVs for this report are calculated using the exclusive [employer]. ([place].S. Patent No. [phone] [id number] 983). Standardization and correction of the FDG SUV metric via [employer] technology allow for vendor non-specific objective quantitative examination comparison and optimization of the sensitivity and specificity of the FDG PET-CT examination. Electronically Signed: Jose F Ball, at 7:53 EDT ,
== END | disposition home or self-care (01) ==
LOC: ONC 14:18
PROVIDERS: PCP Internal Medicine; Referring Provider Internal Medicine Critical Care Medicine; Visit Provider Internal Medicine Critical Care Medicine
DX: R91.1 Solitary pulmonary nodule (principal)
CPT/HCPCS: 78815; A9552

== ENCOUNTER → 2021-12-23 | Outpatient (CLI) | payer MEDICAID, SELFPAY ==
--- NOTE | 2021-12-23 15:16 | PFTCOMP ---
COMPLETE PULMONARY FUNCTION TEST INTERPRETATION Brief HPI: Patient is a 66-year-old male, currently under the care of myself, who presents to [facility] for complete pulmonary function tests secondary to diagnosis of dyspnea. Respiratory therapist reports good effort and reproducible results. Interpretation: Forced expiration spirometry shows no large airways obstructive ventilatory defect with an FEV1 of 96% predicted. There is no significant bronchodilator response by strict ATS criteria. Spirograms are of good quality and plateau slowly, indicating slowly emptying areas of the lungs. The respiratory flow volume loop shows decreased expiratory flow rates at high lung volumes consistent with small airways obstruction. Patient may have an element of flattening of the inspiratory limb suggestive of an extrathoracic variable airway obstruction. Lung volumes by body plethysmography show a normal total lung capacity at 7.03 L, 115% predicted. All other lung volumes are within normal limits. Diffusion capacity by carbon monoxide is at the lower limit of normal at 71% predicted. The airway resistance is normal. No previous pulmonary function tests were available for review. Impression: Grossly normal pulmonary function test with some stigmata of possible small airways disease and early COPD
== END | disposition home or self-care (01) ==
LOC: PSN 09:24
PROVIDERS: PCP Internal Medicine; Visit Provider Internal Medicine Critical Care Medicine
DX: R06.00 Dyspnea, unspecified (principal)
CPT/HCPCS: 94060; 94726; 94729

== ENCOUNTER → 2021-12-25 | Outpatient (CLI) | payer MEDICAID, SELFPAY ==
[2021-12-25 12:42] VITALS: PULSE 114; PULSE 115; PULSE 120; PULSE 122; PULSE 125; PULSE 126; PULSE 127; O2SAT 94; O2SAT 95; O2SAT 96; O2SAT 97; O2SAT 98
--- NOTE | 2021-12-25 12:45 | CPS ---
PATIENT TESTING PERFORMED WITH PATIENT ON CRUTCHES- HE HAS USED THEM FOR PAST 2 YEARS D/T NEEDING PROSTHETIC LEG REPLACED. HE STATES HE IS MODERATELY SOB AT BASELINE, WHICH DID NOT CHANGE MUCH WITH TESTING. HR ALSO ELEVATED AT BASELINE, ALSO DID NOT CHANGE SIGNIFICANTLY WITH TESTING. PT DID NOT REQUEST OR REQUIRE ANY REST BREAKS THROUGHOUT TESTING.
--- NOTE | 2021-12-25 14:13 | PCM.PSN.6M ---
PSN 6 Minute Walk Test 6 Minute Walk Test 6 Minute Walk Test: 6 Minute Walk Test PSN:6-Minute Walk Test Start: 12/25/21 12:42 Freq: Status: Active Protocol: RESP.6MINW Document 12/25/21 12:42 [facility] (Rec: 12/25/21 12:49 [facility] [id number]) 6 Minute Walk Test Date Performed 12/25/21 Time Performed 12:30 Height 5 ft 8 in Weight: 63.503 kg Weight in Pounds 140.[address]: Robert Blackburn Assistive device used: Crutches Pre-test Oxygen Delivery Method Room Air Pulse Ox (%) 97 Pulse Rate (60-100 beats/min) 114 H Dyspnea Antony Scale (0-10) 3 Reported Symptoms Increased Work of Breathing 1st minute Oxygen Delivery Method Room Air Pulse Ox (%) 95 Pulse Rate (60-100 beats/min) 120 H Dyspnea Antony Scale (0-10) 4 Number of Rests Taken 0 Reported Symptoms Increased Work of Breathing 2nd minute Oxygen Delivery Method Room Air Pulse Ox (%) 94 Pulse Rate (60-100 beats/min) 122 H Dyspnea Antony Scale (0-10) 4 Number of Rests Taken 0 Reported Symptoms Increased Work of Breathing 3rd minute Oxygen Delivery Method Room Air Pulse Ox (%) 95 Pulse Rate (60-100 beats/min) 125 H Dyspnea Antony Scale (0-10) 4 Number of Rests Taken 0 Reported Symptoms Increased Work of Breathing 4th minute Oxygen Delivery Method Room Air Pulse Ox (%) 95 Pulse Rate (60-100 beats/min) 126 H Dyspnea Antony Scale (0-10) 4 Number of Rests Taken 0 Reported Symptoms Increased Work of Breathing 5th minute Oxygen Delivery Method Room Air Pulse Ox (%) 96 Pulse Rate (60-100 beats/min) 127 H Dyspnea Antony Scale (0-10) 4 Number of Rests Taken 0 Reported Symptoms Increased Work of Breathing 6th minute Oxygen Delivery Method Room Air Pulse Ox (%) 96 Pulse Rate (60-100 beats/min) 126 H Dyspnea Antony Scale (0-10) 4 Number of Rests Taken 0 Reported Symptoms Increased Work of Breathing Post-test Oxygen Delivery Method Room Air Pulse Ox (%) 98 Pulse Rate (60-100 beats/min) 115 H Dyspnea Antony Scale (0-10) 3 Reported Symptoms Increased Work of Breathing Full Laps Walked 8 Partial Lap, Number of Tiles Walked 27 Total Distance Walked (ft) 499 12/25/21 12:45 Cardiopulmonary Services by Yuliana Calderon PATIENT TESTING PERFORMED WITH PATIENT ON CRUTCHES- HE HAS USED THEM FOR PAST 2 YEARS D/T NEEDING PROSTHETIC LEG REPLACED. HE STATES HE IS MODERATELY SOB AT BASELINE, WHICH DID NOT CHANGE MUCH WITH TESTING. HR ALSO ELEVATED AT BASELINE, ALSO DID NOT CHANGE SIGNIFICANTLY WITH TESTING. PT DID NOT REQUEST OR REQUIRE ANY REST BREAKS THROUGHOUT TESTING. Initialized on 12/25/21 12:45 - END OF NOTE Interpretation Interpretation: The patient was able to ambulate 499 feet over the course of 6 minutes on room air with the assistance of crutches and no breaks. The patient experienced no significant desaturation, but did have persistent tachycardia throughout testing with a peak heart rate of 127 bpm. These findings are consistent with a cardiovascular limitation exercise tolerance. Recommendations Recommendations: No supplemental oxygen is indicated at this time. Patient may benefit from a cardiovascular evaluation
== END | disposition home or self-care (01) ==
LOC: PSN 12:17
PROVIDERS: PCP Internal Medicine; Referring Provider Internal Medicine Critical Care Medicine; Visit Provider Internal Medicine Critical Care Medicine
DX: R06.00 Dyspnea, unspecified (principal)
CPT/HCPCS: 94618

== ENCOUNTER → 2022-04-11 | Outpatient (CLI) | payer MEDICARE, MEDICAID, SELFPAY ==
[2022-04-11 15:42] LABS: Absolute Lymphocyte Count 1.14 X10^3/uL (0.83-4.51); Absolute Neutrophil Count 5.9 X10^3/uL (2.0-7.7); Basophil# 0.04 X10^3/uL; Basophil% 0.5 % (0-1); Eosinophil# 0.09 X10^3/uL; Eosinophils% 1.2 % (0-5); Hematocrit 39.5 % (40-54); Hemoglobin 12.8 g/dL (13.0-16.5); Lymphocyte # 1.14 X10^3/ul (0.83-4.51); Lymphocyte % 14.6 % (19-41); Mean Corp Hgb Conc 32.4 g/dL (32-36); Mean Corpuscular Hgb 32.4 pg (27.0-32.0); Monocyte# 0.58 X10^3/uL; Monocyte% 7.4 % (0-10); NRBC Flagged by Analyzer 0 % (0-5); Neutrophil # 5.93 X10^3/uL (2.7-7.7); Neutrophil % 75.8 % (47-70); Platelet Count 444 K/mm3 (150-450); RBC Distribution Width CV 14.9 % (11.6-14.6); RBC Distribution Width SD 53.7 fl (35.1-43.9); Red Blood Count 3.95 M/mm3 (4.6-6.2); White Blood Count 7.8 K/mm3 (4.4-11.0)
[2022-04-11 16:10] LABS: ALB/GLOB Ratio 0.8 RATIO (0.9-2.4); AST(SGOT) 11 U/L (15-37); Alanine Aminotransfer ALT/SGPT 21 U/L (16-61); Albumin, Serum 3.5 g/dL (3.2-5.0); Alkaline Phosphatase 115 U/L (45-117); Anion Gap 7 (5-15); BUN 7 mg/dL (7-18); BUN/Creat Ratio 9.1 RATIO (10-20); Calcium,Total 9.2 mg/dL (8.5-10.1); Chloride 100 mmol/L (98-107); Cholesterol 166 mg/dL (200); Creatinine, Serum 0.77 mg/dL (0.70-1.30); EST Glomerular Filtration Rate 108 mL/min (>60); Est Glom Filt Rate - Afr Amer 131 mL/min (>60); Globulin 4.4 g/dL (2.2-4.2); Glucose 91 mg/dL (74-106); High Density Lipoprotein 48 mg/dL; Potassium 4.2 mmol/L (3.5-5.1); Protein, Total 7.9 g/dL (6.4-8.2); Sodium Level 134 mmol/L (136-145); Triglycerides 93 mg/dL; Very Low Density Lipoprotein 19 mg/dL (5-40)
[2022-04-11 17:40] LABS: Vitamin B12 316 pg/mL (211-911)
== END | disposition home or self-care (01) ==
LOC: BIMLAB 11:19
PROVIDERS: PCP Internal Medicine; Referring Provider Internal Medicine; Visit Provider Internal Medicine
DX: L40.9 Psoriasis, unspecified (principal); D75.89 Other specified diseases of blood and blood-forming organs; E78.5 Hyperlipidemia, unspecified
CPT/HCPCS: 36415; 80053; 80061; 82607; 82746; 85025

== ENCOUNTER 2023-11-13 17:40 | Inpatient (IN) | payer MEDICARE, SELFPAY ==
[2023-11-13] VITALS (8 sets, daily range): BP systolic 96–128; BP diastolic 60–85; PULSE 76–102; RESP 17–22; TEMP 36.4–36.9; O2SAT 92–97; BMI 14.8; BMI 14.6
--- NOTE | 2023-11-13 18:23 | EKG12_ITS ---
Test Reason : ALTERED LEVEL OF CONSCIENCIOUSNESS Blood Pressure : / mmHG Vent. Rate : 085 BPM Atrial Rate : 085 BPM P-R Int : 134 ms QRS Dur : 082 ms QT Int : 386 ms P-R-T Axes : 070 -30 073 degrees QTc Int : 459 ms Normal sinus rhythm Left axis deviation Prominent T waves Abnormal ECG Confirmed by Jaskaran Burns ([id number]), story editor TISH STONE ([id number]) on 11/16/2023 10:40:39 AM Referred By: Confirmed By:Jaskaran Burns
--- NOTE | 2023-11-13 18:45 | RAD_ITS ---
EXAM: XR CHEST, 1 VIEW CLINICAL INDICATION: bilateral rales TECHNIQUE: Frontal view of the chest. COMPARISON: No relevant prior studies available. FINDINGS: LUNGS AND PLEURAL SPACES: There is left lower lobe and retrocardiac opacity compatible with pneumonia. No pneumothorax. No effusion. HEART: Unremarkable. Cardiac silhouette not enlarged. MEDIASTINUM: Central airways and mediastinal contour are unremarkable. BONES/JOINTS: Unremarkable. No acute fracture. SOFT TISSUES: Unremarkable. RAD/Chest 1 View (Portable) IMPRESSION: Left lower lobe pneumonia. Electronically Signed: Nam Coleman MD at 19:25 EDT ,
[2023-11-13 18:46] LABS: Absolute Lymphocyte Count 0.61 X10^3/uL (0.83-4.51); Absolute Neutrophil Count 7.8 X10^3/uL (2.0-7.7); Basophil# 0.02 X10^3/uL; Basophil% 0.2 % (0-1); Hematocrit 35.8 % (40-54); Hemoglobin 11.3 g/dL (13.0-16.5); Lymphocyte # 0.61 X10^3/ul (0.83-4.51); Lymphocyte % 6.7 % (19-41); Mean Corp Hgb Conc 31.6 g/dL (32-36); Mean Corpuscular Hgb 24.9 pg (27.0-32.0); Mean Platelet Vol. 8.7 fl (6.2-12.0); Monocyte# 0.61 X10^3/uL; Monocyte% 6.7 % (0-10); NRBC Flagged by Analyzer 0 % (0-5); Neutrophil # 7.82 X10^3/uL (2.7-7.7); Platelet Count 496 K/mm3 (150-450); RBC Distribution Width CV 19.1 % (11.6-14.6); RBC Distribution Width SD 53.6 fl (35.1-43.9); Red Blood Count 4.53 M/mm3 (4.6-6.2); White Blood Count 9.1 K/mm3 (4.4-11.0)
[2023-11-13 18:59] LABS: International Normalized Ratio 1.4; Prothrombin Time (Protime)PT. 16.7 SECONDS (11.7-14.9)
[2023-11-13 19:00] LABS: Partial Thromboplast Time 43.8 Seconds (24.1-36.2)
[2023-11-13 19:03] LABS: Allen Test Positive; Base Excess -5 mmol/L (-2 to +2); Bicarbonate 19.6 mmol/L (22-26); Blood Gas Specimen Type ART; Mode Not entered; O2 Delivery Device Not entered; PO2 70 mmHG (75-100); SITE R Radial; SO2 95 % (95-99); Total Carbon Dioxide 21 mmol/L; pCO2 29.3 mmHg (35-45); pH 7.43 (7.35-7.45)
[2023-11-13 19:07] LABS: ALB/GLOB Ratio 0.5 RATIO (0.9-2.4); AST(SGOT) 19 U/L (15-37); Alanine Aminotransfer ALT/SGPT 12 U/L (16-61); Albumin, Serum 2.6 g/dL (3.2-5.0); Alkaline Phosphatase 105 U/L (45-117); Anion Gap 11 (5-15); BUN 15 mg/dL (7-18); BUN/Creat Ratio 15.4 RATIO (10-20); Calcium,Total 8.2 mg/dL (8.5-10.1); Chloride 94 mmol/L (98-107); Creatinine, Serum 0.97 mg/dL (0.70-1.30); EST Glomerular Filtration Rate 82 mL/min (>60); Est Glom Filt Rate - Afr Amer 99 mL/min (>60); Estimated Creatinine Clearance 46.83 ml/min; Globulin 4.8 g/dL (2.2-4.2); Glucose 99 mg/dL (74-106); Potassium 3.8 mmol/L (3.5-5.1); Protein, Total 7.4 g/dL (6.4-8.2); Sodium Level 128 mmol/L (136-145)
[2023-11-13 19:10] LABS: Lactic Acid 1.9 mmol/L (0.4-1.9)
--- NOTE | 2023-11-13 19:15 | EX.ED.DYSGE1 ---
HPI History of Present Illness Chief Complaint: Alt LOC Detail of Chief Complaint: Initial complaint was no complaints and then changed to altered mental stat Informant: family Limited: other (Disoriented) Onset/Context/Timing Onset: - (Unable to determine) Context: - (Unable to determine) Timing: Continuous Quality: Confusion, losing weight Worsened by: Unable to determine Relieved by: Unable to determine Associated Symptoms Associated Symptoms: Unknown Narrative Narrative: Patient is a 68-year-old male who has active neoplasm left lower lobe with active activity left pleural effusion and active disease carinal mediastinum and PET scan/CT. This was performed October of this year. He was admitted at [place]. He was referred to Dr. Michelle because of his insurance. Niece who has not seen him in over 3 years states that this got jumped on me 16 October. Patient has no living well, no Pap trade mark attorney and no advanced directives He apparently has lost 8 pounds the past month. He is scheduled for an MRI November 23. There is no recent CAT scan that was performed at [facility] of his head. Will determine if there is one performed at [place]. Prior similar symptoms: No Recent Illness/Hospitalization: Yes [facility] Medical History AAA (abdominal aortic aneurysm) Lung cancer Macrocytosis Lung nodule Encounter for screening for malignant neoplasm of lung LYLA (acute kidney injury) Back pain Femoral-tibial bypass graft occlusion, right Mitral valve annular calcification ETOH abuse Recurrent deep vein thrombosis (DVT) Nicotine dependence Peripheral vascular occlusive disease Essential (primary) hypertension Above knee amputation of right lower extremity Psoriasis Hyperlipidemia Psoriasis (a type of skin inflammation) Vitamin deficiency Vascular disease GERD (gastroesophageal reflux disease) History of pneumonia Chronic bronchitis Carpal tunnel syndrome History of blood transfusion Bone fracture Back problem Home Medications ?Medication ?Instructions ?Recorded ?Last Taken ?Type folic acid 1 mg tablet 1 mg PO DAILY #90 tabs 01/10/22 Unknown Rx Handicap Placard #1 ea 04/11/22 Unknown Rx ferrous gluconate 236 mg (27 mg 236 mg PO DAILY 10/29/23 Unknown History iron) tablet methotrexate sodium 2.5 mg tablet 2.5 mg PO .COMPLEX #32 tabs 11/09/23 Unknown Rx pantoprazole 40 mg tablet,delayed 40 mg PO QAM Reflux #90 tabs 11/09/23 Unknown Rx release oxycodone-acetaminophen 5 mg-325 1 tab PO Q6H PRN pain 30 days #60 11/11/23 Unknown Rx mg tablet (Percocet) tabs amlodipine 5 mg tablet (Norvasc) 5 mg PO DAILY 11/13/23 Unknown History Allergy/AdvReac Type Severity Reaction Status Date / Time coconut Allergy Severe Anaphylaxis Verified 11/13/23 17:58 shrimp Allergy Mild fever Verified 11/05/23 08:46 Penicillins AdvReac Nausea/Vom/ Verified 11/05/23 08:46 Diarrhea Family History Grandmother Arthritis Uncle Diabetes Hypertension Brother Diabetes Hypertension Mother Hypertension Surgical History History of femoropopliteal bypass (07/2019) History of leg amputation History of tonsillectomy and adenoidectomy History of fasciotomy Social History Smoking Status: Current every day smoker tobacco type: cigarettes Tobacco: How many years used: 42 Electronic Cigarette Use: not used second hand exposure: Yes quit status: considering quitting alcohol intake: current alcohol intake frequency: 3 or more drinks per day Alcohol type: beer substance use type: does not use ROS ROS ED Review of Systems ROS Unobtainable: due to mental status Constitutional Constitutional ED: Reports weight loss Respiratory/Chest Respiratory/Chest: Reports cough and dyspnea Gastrointestinal Gastrointestinal: Reports constipation Neurologic Neurologic: Reports weakness; Denies headache(s) EXAM Physical Exam Const Vital Signs: 11/13/23 17:41 11/13/23 18:23 11/13/23 18:53 Temperature 98.2 F 98.0 F Temperature Source Oral Temporal Pulse Rate 102 H 80 Respiratory Rate 18 19 H Blood Pressure 97/68 104/68 Blood Pressure Mean 77 80 Pulse Ox 94 97 Oxygen Delivery Method Room Air Room Air Room Air 11/13/23 19:23 11/13/23 20:00 11/13/23 20:00 Temperature 98.5 F 97.5 F L Temperature Source Oral Oral Pulse Rate 87 97 Respiratory Rate 22 H 19 H Blood Pressure 111/68 120/85 H 120/85 H Blood Pressure Mean 82 96 96 Pulse Ox 97 96 Oxygen Delivery Method Room Air Room Air Positive well developed, cachectic and unkempt Constitutional Narrative: Patient has cyanosis of his fingers. Patient's toes are pallor with cyanosis. General Appearance ED: unkempt, well developed, cachectic and cyanotic; Negative for diaphoretic Nutritional Appearance: cachectic HEENT Reports dry mucous membranes HEENT Narrative: Patient has temporal wasting. Ears normal. Nares patent. Posterior pharynx unremarkable. Mouth ED: Yes dry mucous membranes Mouth: dry mucous membranes Eyes PERRL and EOMs intact bilaterally General Eye ED: Yes pale conjunctiva; Negative for scleral icterus Neck no lymphadenopathy, supple and no JVD Chest Wall inspection of chest normal and palpation of chest normal Chest Narrative: Able to appreciate patient's ribs because of the the weight loss Resp No clear to auscultation bilaterally Auscultation: rales left lower Cardio regular rate, regular rhythm, S1 normal heart sound, S2 normal heart sound and no murmurs GI normal to inspection, nondistended, normoactive bowel sounds, non-distended and no masses; Negative for hepatosplenomegaly Extremity Extremity Narrative: AKA right lower extremity due to PAD. Stigmata of PAD left lower extremity. He has a palpable femoral pulse. He does not have a palpable popliteal, PT or DP pulse. He has biphasic flow popliteal. Monophasic flow PT and no flow DP and toes reveal cyanosis. Neuro No oriented x3 Sensorium / Orientation: Negative for alert Psych Appearance: unkempt Skin Skin Narrative: Skin lesions left lower extremity that are not healing well. MDM MDM MDM Narrative Medical decision making narrative: Differential diagnosis includes infectious as well as metabolic. If he has not had a recent CAT scan we will obtain 1 to evaluate for metastasis to brain. Chest x-ray to rule out pneumonia. Competence of metabolic panel to assess for endorgan dysfunction. Because of reported renal mass and the fact he is hypotensive cortisol level was obtained as well as administration of stress dose of Solu-Cortef. Cortisol level was high. After obtaining PET scan that was performed last month it was noted there are no adrenal lesions. Lesions are limited to the left hemithorax. Since patient is hypotensive and clinically dehydrated 1 L of normal saline was ordered which is essentially equivalent to 20 cc/kg. Lab Data Attestation: I reviewed the patient's lab results. Lab results narrative: White count is normal. Patient has microcytic anemia. Differential reveals mild shift. Coags reveal elevated PT and PTT of 16.7 and 43.8. Review of med list indicates he is not on an anticoagulant. Comprehensive metabolic panel reveals sodium of 126. This is a chronic finding. BUN and creatinine are 15 and 0.97 with an estimated GFR of 82. Glucose is normal. Calcium is low at 8.2. He had a history of hypercalcemia. His albumin is lower than prior results. Today his albumin is 2.6 and is consistent with his malnourishment. Lactate is normal at 1.9. Labs: Laboratory Results - last 24 hr 11/13/23 11/13/23 18:31 19:16 WBC 9.1 RBC 4.53 L Hgb 11.3 L Hct 35.8 L MCV 79.0 L MCH 24.9 L MCHC 31.6 L RDW Std Deviation 53.6 H RDW Coeff of [place] 19.1 H Plt Count 496 H MPV 8.7 Immature Gran % (Auto) 0.400 Neut % (Auto) 86.0 H Lymph % (Auto) 6.7 L [place] % (Auto) 6.7 Eos % (Auto) 0.0 Baso % (Auto) 0.2 Absolute Neuts (auto) 7.8 H Absolute Lymphs (auto) 0.61 L Nucleated RBC % 0 PT 16.7 H INR 1.4 APTT 43.8 H Sodium 128 L Potassium 3.8 Chloride 94 L Carbon Dioxide 23.0 Anion Gap 11 BUN 15 Creatinine 0.97 Estim Creat Clear Calc 46.83 Est GFR (MDRD) Af Amer 99 Est GFR (MDRD) Non-Af 82 BUN/Creatinine Ratio 15.4 Glucose 99 Lactic Acid 1.9 Calcium 8.2 L Total Bilirubin 0.40 AST 19 ALT 12 L Alkaline Phosphatase 105 Total Protein 7.4 Albumin 2.6 L Globulin 4.8 H Albumin/Globulin Ratio 0.5 L Cortisol 34.90 H Urine Color Yellow Urine Clarity Cloudy Urine pH 5.0 Ur Specific [place] 1.020 Urine Protein 100 H Urine Glucose (UA) Normal Urine Ketones 15 H Urine Occult Blood Negative Urine Nitrite Negative Urine Bilirubin 1 H Urine Urobilinogen 1 H Ur Leukocyte Esterase 25 H Urine RBC 0 SEEN Urine WBC 0-5 SEEN Ur Squamous Epith Cells 0-5 SEEN Amorphous Sediment 2+ URATE Urine Bacteria 2+ Urine Mucus 0 SEEN ABG Data ABG results: ABG 11/13/23 19:00 Specimen Type ART Sample Site R Radial pH 7.43 Bicarbonate Actual 19.6 L Total CO2 21 Base Excess -5 L O2 Saturation 95 ABG pCO2 29.3 L ABG pO2 70 L Marc Test Positive O2 Delivery Device Not entered Vent Mode Not entered Radiography Chest X-Ray - ED: 1 View and Read by ED Physician (Increased interstitial markings left lower lobe. Question may be of a small effusion. There is no bony lytic or blastic lesions noted. There is no pathologic fracture is noted. Hilum reveals fullness on the right side. This may be due to positioning. This was apparently reviewed interpreted by) Diagnostic Testing: Clinical Impression(s) from Imaging Studies Chest X-Ray 11/13/23 18:45 IMPRESSION: Left lower lobe pneumonia. Electronically Signed: Nam Coleman MD at 19:25 EDT , Brain CT 11/13/23 19:56 IMPRESSION: Negative head/brain CT without intravenous contrast. Electronically Signed: Nam Coleman MD at 21:05 EDT , Chest x-ray report by radiologist was read. I suspect this is due to his active neoplasm. His white count is normal. CT of the head without contrast was reviewed by me at 2045. There is atrophy. There is no acute pathology or evidence of vasogenic edema or mass. Awaiting formal read. EKG Initial EKG: Attestation: I personally reviewed and interpreted this EKG as follows: Interpretation: Sinus Rhythm (Rate is 85. There is a left axis. There is no acute ischemic changes noted. [place] interval is 134 ms. QRS duration 82 ms. QT duration 386 ms. There is no truly peaked T waves to suggest hyperkalemia.) Management Discussion w/another healthcare provider: Hospitalist (Case discussed with hospitalist. Since radiologist's reading infiltrate will add azithromycin to the Rocephin he is already received.) Treatment and Re-Evaluation :: Since history is very limited and patient does have 2+ bacteria with reported acute change in mental status will treat with Rocephin. Presently patient does not have capacity to make decision regarding life-sustaining measures. As previously noted there is no assigned person for healthcare power of trade mark attorney and he has no living will or signed advanced directives. According to Dr. Chavez's note he wished to proceed with treatment. Discharge Plan Dx/Rx/DC Orders Clinical Impression: Acute alteration in mental status, Peripheral vascular occlusive disease, Acute hypotension, Bacteriuria, Squamous cell carcinoma of lung, Acrocyanosis, Nicotine dependence, Cancer cachexia, Infiltrate of lower lobe of left lung present on imaging study Disposition [facility]
[2023-11-13 19:20] LABS: Mucous, Urine 0 SEEN /hpf (<or=2+); Red Blood Cells-Urine 0 SEEN /hpf (0-5)
[2023-11-13] MEDS: Hydrocortisone Sod Succinate 100 MG/2 ML Vial IV (19:21)
[2023-11-13] MEDS: 0.9% Normal Saline (1000mL) 1,000 ML 999 ML IV (19:21)
[2023-11-13 19:22] LABS: Color, Urine Yellow (Yellow); Glucose, Dipstick Normal (Normal); Ketone-Dipstick 15 mg/dl (Negative); Leukocyte Esterase-Dipstick 25 /ul (Negative); Nitrite-Dipstick Negative (Negative); Occult Blood-Urine Negative /ul (Negative); Protein-Dipstick 100 mg/dl (Negative); Urine Clarity Cloudy (Clear); Urine Urobilinogen 1 mg/dl (Normal)
[2023-11-13 19:25] LABS: Urine Bilirubin Dipstick 1 mg/dL (Negative)
[2023-11-13 19:34] LABS: Amorphous Sediment 2+ URATE; Bacteria 2+ /hpf (None Seen); Squamous Epithelial Cells - UA 0-5 SEEN /hpf (0-5); White Blood Cells 0-5 SEEN /hpf (0-5)
--- NOTE | 2023-11-13 19:56 | CT_ITS ---
EXAM: CT HEAD WITHOUT INTRAVENOUS CONTRAST CLINICAL INDICATION: AMS TECHNIQUE: Multiple axial images were obtained of the head without intravenous contrast. This CT exam was performed using one or more of the following dose reduction techniques: automated exposure control, adjustment of the mA and/or kV according to patient size, and/or use of iterative reconstruction technique. COMPARISON: No relevant prior studies available. FINDINGS: BRAIN AND EXTRA-AXIAL SPACES: Unremarkable. No intra- or extra-axial hemorrhage. No evidence of acute infarct. No intracranial mass or mass effect. There is preservation of the gomez/white matter interface. Posterior fossa structures are unremarkable. Ventricles are appropriate for age. No hydrocephalus. Basal cisterns are patent. BONES/JOINTS: Unremarkable. No discrete lytic or blastic abnormalities. SINUSES: Unremarkable as visualized. Clear. MASTOID AIR CELLS: Unremarkable. Clear. ORBITS: Visualized globes, extraocular muscles, optic nerves and retrobulbar fat appear unremarkable. CT/Brain/Head without Contrast IMPRESSION: Negative head/brain CT without intravenous contrast. Electronically Signed: Nam Coleman MD at 21:05 EDT ,
--- NOTE | 2023-11-13 21:16 | PCM.HP.STD ---
[facility] - General General Date of Admission: 11/13/23 Date of Service: 11/13/23 Chief Complaint: Confusion, Cachexia and Generalized Weakness in the setting of known Metastatic Lung Cancer. HPI Narrative LUIS EDUARDO ROMAN, is a 68 M with a past medical history of essential hypertension, hyperlipidemia, chronic EtOH abuse; at least 3 drinks per day, history of pneumonia, tobacco abuse; ~1 ppd x ~42 years with subsequent chronic bronchitis, history of known metastatic SCLC with cachexia; followed by Dr. Chavez of the oncology service, history of hypercalcemia of malignancy, chronic pain syndrome; Percocet q. 6 hours prn, history of recurrent DVT, PVD; s/p Right femoral tibial bypass (2019) with subsequent occlusion, history of RLE AKA; with fasciotomy (2019), history of AAA, history of mitral valve annular calcification, history of LYLA, psoriasis, GRETA, history of macrocytosis, GERD, listed allergy to PCN and OA; with chronic back pain who [facility] after he was found at home by a family member in a state of confusion with acute worsening of his chronic cachexia in the setting of known lung cancer with patient previously indicating he wants to be a FULL CODE and have everything done with no living will [id number] or advanced directives. Mr. Roman is not a reliable historian at this time so information was gathered from chart, medical staff and computer. According to the records he initially was diagnosed with a LLL neoplasm with associated malignant pleural effusion with active carinal disease and suspected mediastinal metastases by a PET/CT done in October 2023 at [facility]. Unfortunately, he has allegedly unintentionally lost ~8 pounds in the past month with significant clinical decline and apparent inability to care for himself in his current condition. He is apparently scheduled for a follow up MRI and more staging imaging on November 24, 2023. He admits to SOB at rest with cough and constipation. There is no history recorded suggesting illicit drug use but his UDS this admission was positive for opiates, amphetamines, MDMA and cannabis with patient apparently desperate to get relief from his escalating discomfort. His head CT this admission did not show evidence of metastases or other acute pathologic changes. In the ER he was noted to have CXR positive for LLL infiltrate suspected to be due to a lung mass with suspected post-obstructive pneumonia plus mild AE of chronic bronchitis in the setting of previously known likely metastatic SCLC complicated by laboratory evidence of Hyponatremia of 128 mmol/L present on admission compounded by clinical evidence of acute respiratory insufficiency and worsening cachexia with involuntary weight loss due to aggressive malignancy with suspected superimposed protein-calorie malnutrition culminating in illicit drug use and subsequent toxic encephalopathy in the setting of known chronic EtOH abuse with patient agreeable to palliative care consultation and he was then admitted to the PCU for ongoing care for a stay that is expected to extend beyond 2 midnights. [facility] Medical History AAA (abdominal aortic aneurysm) Lung cancer Macrocytosis Lung nodule Encounter for screening for malignant neoplasm of lung LYLA (acute kidney injury) Back pain Femoral-tibial bypass graft occlusion, right Mitral valve annular calcification ETOH abuse Recurrent deep vein thrombosis (DVT) Nicotine dependence Peripheral vascular occlusive disease Essential (primary) hypertension Above knee amputation of right lower extremity Psoriasis Hyperlipidemia Psoriasis (a type of skin inflammation) Vitamin deficiency Vascular disease GERD (gastroesophageal reflux disease) History of pneumonia Chronic bronchitis Carpal tunnel syndrome History of blood transfusion Bone fracture Back problem Home Medications ?Medication ?Instructions ?Recorded ?Last Taken ?Type folic acid 1 mg tablet 1 mg PO DAILY #90 tabs 01/10/22 Unknown Rx Handicap Placard #1 ea 04/11/22 Unknown Rx ferrous gluconate 236 mg (27 mg 236 mg PO DAILY 10/29/23 Unknown History iron) tablet methotrexate sodium 2.5 mg tablet 2.5 mg PO .COMPLEX #32 tabs 11/09/23 Unknown Rx pantoprazole 40 mg tablet,delayed 40 mg PO QAM Reflux #90 tabs 11/09/23 Unknown Rx release oxycodone-acetaminophen 5 mg-325 1 tab PO Q6H PRN pain 30 days #60 11/11/23 Unknown Rx mg tablet (Percocet) tabs amlodipine 5 mg tablet (Norvasc) 5 mg PO DAILY 11/13/23 Unknown History Allergy/AdvReac Type Severity Reaction Status Date / Time coconut Allergy Severe Anaphylaxis Verified 11/13/23 17:58 shrimp Allergy Mild fever Verified 11/05/23 08:46 Penicillins AdvReac Nausea/Vom/ Verified 11/05/23 08:46 Diarrhea Family History Grandmother Arthritis Uncle Diabetes Hypertension Brother Diabetes Hypertension Mother Hypertension Surgical History History of femoropopliteal bypass (07/2019) History of leg amputation History of tonsillectomy and adenoidectomy History of fasciotomy Social History Smoking Status: Current every day smoker tobacco type: cigarettes Tobacco: How many years used: 42 Electronic Cigarette Use: not used second hand exposure: Yes quit status: considering quitting alcohol intake: current alcohol intake frequency: 3 or more drinks per day Alcohol type: beer substance use type: does not use ROS ROS Narrative Full ROS was not possible at this time due to patient's condition. Vital Signs Vital Signs Vital Signs: 11/13/23 17:41 11/13/23 18:23 11/13/23 18:53 Temperature 98.2 F 98.0 F Temperature Source Oral Temporal Pulse Rate 102 H 80 Respiratory Rate 18 19 H Blood Pressure 97/68 104/68 Blood Pressure Mean 77 80 Pulse Ox 94 97 Oxygen Delivery Method Room Air Room Air Room Air 11/13/23 19:23 11/13/23 20:00 11/13/23 20:00 Temperature 98.5 F 97.5 F L Temperature Source Oral Oral Pulse Rate 87 97 Respiratory Rate 22 H 19 H Blood Pressure 111/68 120/85 H 120/85 H Blood Pressure Mean 82 96 96 Pulse Ox 97 96 Oxygen Delivery Method Room Air Room Air Weight Weight: 97 lb 7.109 oz Body Mass Index (BMI) 14.8 Physical Exam Const no apparent distress Constitutional Narrative: Patient appears cachectic, disheveled and chronically ill. Orientation / Consciousness: confused and lethargic HEENT normocephalic, head/scalp atraumatic and hearing grossly normal bilaterally HEENT Narrative: Mucous membranes dry. Eyes PERRL and EOMs intact bilaterally Neck supple Resp Resp Narrative: Diminished breath sounds over LLL. Cardio regular rate and regular rhythm GI normal to inspection, nondistended, normoactive bowel sounds, soft to palpation, non-tender and non-distended Extremity normal to inspection, full ROM and no clubbing, cyanosis or edema Skin Skin Narrative: Patient has no evidence of abscess, rash or jaundice. Neuro CN's II-XII intact bilaterally, moves all extremities and no focal motor deficits Sensorium / Orientation: awake, alert, oriented to person and oriented to place Psych affect normal Results Medical Records Data Attestation: I reviewed the patient's medical records Lab / Micro Data Attestation: I reviewed the patient's lab results. Lab results narrative: UN DATE: 11/14/23 [facility], DEPARTMENT OF LABORATORIES PAGE 1 RUN TIME: 0452 Specimen Inquiry [address] [place], [address] PATIENT: LUIS EDUARDO ROMAN LOC: [facility] U #: [id number] : 1955 AGE/SX: 68/M FACILITY: [facility] ROOM: [place] RE11/13/[address]: Elza Welch STATUS:ADM IN ED: 1 DIS: ~ SPEC #: [id number] LAUREN: 11/13/23 STATUS: COMP REQ #: [id number] RECD: 11/13/[address]: Dr. Bairon Washington MD ENTERED: 11/13/[address]: Dr. Tate Strange MD ~ Test Result Flag Adult Reference Range DRUG CONFIRM CONFIRMATORY TESTING FOR ALL POSITIVE URINE DRUG SCREEN RESULTS WILL ONLY BE SENT OUT UPON PHYSICIAN ORDER. VISTA Urine Drug Screen methods provide only preliminary analytical test results. A more specific alternate chemical method must be used in order to obtain a confirmed analytical result. Gas chromatography/mass spectrometery (GC/MS) is the preferred confirmatory method. Clinical consideration and professional judgement should be applied to any drug of abuse test result, particularly when preliminary positive results are used. URINE TCA TESTING MUST BE ORDERED SEPARATELY. USE TEST MNEMONIC: UTCA UDS, VISTA VISTA UDS PH 6 AMPHETAMINES POSITIVE H <1000 ng/mL BARBITIURATES NEGATIVE < 200 ng/mL BENZODIAZIPINE NEGATIVE < 200 ng/mL COCAINE NEGATIVE < 300 ng/mL ECSTACY POSITIVE H < 500 ng/mL METHADONE NEGATIVE < 300 ng/mL OPIATES POSITIVE H < 300 ng/mL PCP NEGATIVE < 25 ng/mL THC POSITIVE H < 50 ng/mL END OF REPORT 11/13/23 18:31 11/13/23 18:31 Labs: Laboratory Results - last 24 hr 11/13/23 18:31: WBC 9.1, RBC 4.53 L, Hgb 11.3 L, Hct 35.8 L, MCV 79.0 L, MCH 24.9 L, MCHC 31.6 L, RDW Std Deviation 53.6 H, RDW Coeff of [place] 19.1 H, Plt Count 496 H, MPV 8.7, Immature Gran % (Auto) 0.400, Neut % (Auto) 86.0 H, Lymph % (Auto) 6.7 L, Dickson % (Auto) 6.7, Eos % (Auto) 0.0, Baso % (Auto) 0.2, Absolute Neuts (auto) 7.8 H, Absolute Lymphs (auto) 0.61 L, Nucleated RBC % 0, PT 16.7 H, INR 1.4, APTT 43.8 H, Sodium 128 L, Potassium 3.8, Chloride 94 L, Carbon Dioxide 23.0, Anion Gap 11, BUN 15, Creatinine 0.97, Estim Creat Clear Calc 46.83, Est GFR (MDRD) Af Amer 99, Est GFR (MDRD) Non-Af 82, BUN/Creatinine Ratio 15.4, Glucose 99, Lactic Acid 1.9, Calcium 8.2 L, Total Bilirubin 0.40, AST 19, ALT 12 L, Alkaline Phosphatase 105, Total Protein 7.4, Albumin 2.6 L, Globulin 4.8 H, Albumin/Globulin Ratio 0.5 L, Cortisol 34.90 H 11/13/23 19:16: Urine Color Yellow, Urine Clarity Cloudy, Urine pH 5.0, Ur Specific [place] 1.020, Urine Protein 100 H, Urine Glucose (UA) Normal, Urine Ketones 15 H, Urine Occult Blood Negative, Urine Nitrite Negative, Urine Bilirubin 1 H, Urine Urobilinogen 1 H, Ur Leukocyte Esterase 25 H, Urine RBC 0 SEEN, Urine WBC 0-5 SEEN, Ur Squamous Epith Cells 0-5 SEEN, Amorphous Sediment 2+ URATE, Urine Bacteria 2+, Urine Mucus 0 SEEN ABG Data ABG results: ABG 11/13/23 19:00 Specimen Type ART Sample Site R Radial pH 7.43 Bicarbonate Actual 19.6 L Total CO2 21 Base Excess -5 L O2 Saturation 95 ABG pCO2 29.3 L ABG pO2 70 L Marc Test Positive O2 Delivery Device Not entered Vent Mode Not entered Imaging Radiology Impression Chest X-Ray 11/13/23 18:45 IMPRESSION: Left lower lobe pneumonia. Electronically Signed: Nam Coleman MD at 19:25 EDT , Brain CT 11/13/23 19:56 IMPRESSION: Negative head/brain CT without intravenous contrast. Electronically Signed: Nam Coleman MD at 21:05 EDT , [facility] Imaging Services [address] [place] [id number] CTA Chest W/WO Contrast MR#: [id number] Acct: [id number] Name: ROMANLUIS EDUARDO Rep #: [id number] : 1955 [place] 68 From: Nam Coleman MD PCP: Dr. Tate Strange MD Status: ADM IN Study: CTA Chest W/WO Contrast Date of Exam: 11/13/23 Exam# [id number] Ordering Dr: Smith Figueroa DO EXAM: CT ANGIOGRAPHY CHEST WITHOUT AND WITH INTRAVENOUS CONTRAST CLINICAL INDICATION: LLL MASS TECHNIQUE: Helically acquired angiography images were obtained of the chest without and with intravenous contrast. This CT exam was performed using one or more of the following dose reduction techniques: automated exposure control, adjustment of the mA and/or kV according to patient size, and/or use of iterative reconstruction technique. MIP reconstructed images were created and reviewed. CONTRAST: IV 75mL Isovue-370 COMPARISON: No relevant prior studies available. FINDINGS: PULMONARY ARTERIES: Unremarkable. Normal in caliber. No evidence of pulmonary embolism. AORTA: Unremarkable. Normal in caliber. No evidence of dissection. GREAT VESSELS OF AORTIC ARCH: Unremarkable. Normal in caliber. No evidence of dissection. LUNGS AND PLEURAL SPACES: There is a soft tissue mass in the left hilum that measures 4.2 x 4.5 x 4.7 cm. There is also a soft tissue mass in the left lower lobe that measures 5.7 x 6.6 x 8.6 cm. There are emphysematous changes seen primarily in the lung bases. No pleural effusion or thickening. No pneumothorax. HEART: Unremarkable. Heart size is normal. No pericardial effusion. No significant coronary artery calcifications. MEDIASTINUM: Unremarkable. No mediastinal or hilar adenopathy. Esophagus is unremarkable. No hiatal hernia. THYROID: Unremarkable. No thyroid lesions. BONES/JOINTS: Unremarkable. No suspicious lytic or blastic abnormality. CT/CTA Chest W/WO Contrast IMPRESSION: Large mass in the left lower lobe. There is also a soft tissue mass in the left hilum. These are suspicious for malignancy. Further evaluation with either biopsy or PET CT scan may be beneficial. Electronically Signed: Nam Coleman MD at 0:02 EDT , CC: Dr. Smith Figueroa DO; Dr. Tate Strange MD ~ Retail Marketing Manager: Signed Assessment & Plan Assessment/Plan (1) Infiltrate of lower lobe of left lung present on imaging study: (2) Acute exacerbation of chronic bronchitis: (3) Squamous cell carcinoma of lung: QUALIFIERS: Laterality: unspecified laterality Qualified Code(s): C34.90 - Malignant neoplasm of unspecified part of unspecified bronchus or lung (4) Cancer cachexia: (5) Hyponatremia: (6) Toxic encephalopathy: QUALIFIERS: Toxic encephalopathy cause: unspecified toxin Qualified Code(s): G92.9 - Unspecified toxic encephalopathy PLAN: Plan 1. CXR positive for LLL infiltrate suspected to be due to a lung mass with suspected post-obstructive pneumonia with mild AE of chronic bronchitis in the setting of previously known likely metastatic SCLC with a known history of tobacco abuse; ~1 ppd x ~42 years with subsequent chronic bronchitis with history of hypercalcemia of malignancy; followed by Dr. Chavez of the oncology service with patient still FULL CODE - Admit to PCU. Continue IV Rocephin and IV Azithromycin begun in the ER and await culture and sensitivity data. Check urine antigens for Legionella spp. and Streptococcus pneumonia. Check CT of chest to further clarify his anatomy and confirm suspicion. Give Tylenol prn for [id number] (level 1-5/10) pain or fever. Give Morphine IV prn for severe (level 6-10/10) pain. Finally, we will consult oncology to see this patient on-rounds in the AM for further recommendations regarding his care and possible referral to palliative care with help appreciated in advance. 2. Toxic encephalopathy with positive urine drug screen for amphetamines, ecstasy, opiates and THC this admission in the setting of known chronic EtOH abuse complicating #1 - Give Phenobarbital taper to prevent acute withdrawal. Check LARA and UDS. Give folate and MVI. Minimize HAM PASSER-active medications. Otherwise, continue supportive care and monitor for improvement. 3. Worsening cachexia with involuntary ~8 pound weight loss in the pat month due to aggressive malignancy with suspected superimposed protein-calorie malnutrition with recent diagnosis of hypercalcemia of malignancy compounding #1 & #2 - Noted. We will consult clinical dietitian to formally screen and confirm suspicion. 4. 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 Check urine and serum osmolality. Recheck level in the AM to ensure improvement. 5. Chronic pain syndrome; already on Percocet q. 6 hours prn in the setting of a complex medical history outlined above adding to the complexity of #1 - #4 - Hold Percocet for now. Multi-agent positive UDS noted above. 6. PVD; s/p Right femoral tibial bypass (2019) with subsequent occlusion with subsequent RLE AKA; with fasciotomy (2019) - Noted. Patient may need ECF if he cannot care for himself at home as this further complicates his case and may hamper his recovery in addition to his ability to live independently. Finally, we will consult PT/OT and case management to see this patient on rounds in the a.m. for further recommendations with help appreciated in advance for 7. Essential hypertension - Resume home regimen as previous. 8. Hyperlipidemia - Continue statin. 9. History of pneumonia - Noted. 10. History of recurrent DVT - Noted. 11. History of AAA - Noted. 12. History of mitral valve annular calcification - Noted. 13. History of LYLA - Noted. 14. Psoriasis - Stable. 15. GRETA - Resume current oral iron supplementation. 16. History of macrocytosis - Noted with patient microcytic with an MCV of 79 fL and a hemoglobin of 11.3 g/dL present on admission. 17. GERD - Continue PPI. 18. Listed allergy to PCN - Noted. Avoid these agents. 19. OA; with chronic back pain - Give Tylenol prn. 20. DVT prophylaxis - Lovenox 40 mg sq daily. Total time: Approximately 75 minutes. Charges/Coding Visit Charges Inpatient E&M: 63876 In Hosp L3
[2023-11-13] MEDS: Ceftriaxone 1 GM/50 ML BAG IV (21:33)
[2023-11-13 21:46] LABS: Amphetamine Urine VISTA POSITIVE (<1000 ng/mL); Barbiturate Urine VISTA NEGATIVE (< 200 ng/mL); Benzodiazepine Urine VISTA NEGATIVE (< 200 ng/mL); Cocaine Urine VISTA NEGATIVE (< 300 ng/mL); Ecstacy Urine VISTA POSITIVE (< 500 ng/mL); Methadone Urine VISTA NEGATIVE (< 300 ng/mL); Vista UDS pH Range 6
[2023-11-13 21:47] LABS: PCP Urine VISTA NEGATIVE (< 25 ng/mL); THC Urine VISTA POSITIVE (< 50 ng/mL)
[2023-11-13] MEDS: Azithromycin 500 MG in Dextrose 5%-Water (250mL Bag) 250 ML 250 MG IV (22:06)
[2023-11-13 22:09] LABS: Alcohol, Blood (Medical)-Serum < 3.0 mg/dL
--- NOTE | 2023-11-13 22:18 | CT_ITS ---
EXAM: CT ANGIOGRAPHY CHEST WITHOUT AND WITH INTRAVENOUS CONTRAST CLINICAL INDICATION: LLL MASS TECHNIQUE: Helically acquired angiography images were obtained of the chest without and with intravenous contrast. This CT exam was performed using one or more of the following dose reduction techniques: automated exposure control, adjustment of the mA and/or kV according to patient size, and/or use of iterative reconstruction technique. MIP reconstructed images were created and reviewed. CONTRAST: IV 75mL Isovue-370 COMPARISON: No relevant prior studies available. FINDINGS: PULMONARY ARTERIES: Unremarkable. Normal in caliber. No evidence of pulmonary embolism. AORTA: Unremarkable. Normal in caliber. No evidence of dissection. GREAT VESSELS OF AORTIC ARCH: Unremarkable. Normal in caliber. No evidence of dissection. LUNGS AND PLEURAL SPACES: There is a soft tissue mass in the left hilum that measures 4.2 x 4.5 x 4.7 cm. There is also a soft tissue mass in the left lower lobe that measures 5.7 x 6.6 x 8.6 cm. There are emphysematous changes seen primarily in the lung bases. No pleural effusion or thickening. No pneumothorax. HEART: Unremarkable. Heart size is normal. No pericardial effusion. No significant coronary artery calcifications. MEDIASTINUM: Unremarkable. No mediastinal or hilar adenopathy. Esophagus is unremarkable. No hiatal hernia. THYROID: Unremarkable. No thyroid lesions. BONES/JOINTS: Unremarkable. No suspicious lytic or blastic abnormality. CT/CTA Chest W/WO Contrast IMPRESSION: Large mass in the left lower lobe. There is also a soft tissue mass in the left hilum. These are suspicious for malignancy. Further evaluation with either biopsy or PET CT scan may be beneficial. Electronically Signed: Nam Coleman MD at 0:02 EDT ,
[2023-11-13 22:33] LABS: Magnesium 2.5 mg/dL (1.6-2.6)
[2023-11-13] MEDS: 0.9% Normal Saline (1000mL) 1,000 ML 70 ML IV (22:48)
[2023-11-13 23:10] LABS: Osmolality, Serum 275 mOsm/KG (280-301)
[2023-11-13] MEDS: Phenobarbital 32.4 MG Tablet 64.8 MG PO (23:12)
[2023-11-14] VITALS (10 sets, daily range): BP systolic 104–120; BP diastolic 58–79; PULSE 70–87; RESP 16–18; TEMP 36.4–36.8; O2SAT 93–95; BMI 14.6
[2023-11-14 00:18] LABS: Osmolality, Urine 659 mOsm/KG
[2023-11-14] MEDS: Phenobarbital 32.4 MG Tablet 64.8 MG PO ×6 (03:24→22:15)
[2023-11-14] MEDS: Potassium Phosphate 40 MM in 0.9% Normal Saline (500mL Bag) 500 ML 62.5 MM IV (06:12)
[2023-11-14 07:56] LABS: Absolute Neutrophil Count 6.7 X10^3/uL (2.0-7.7); Hematocrit 32.3 % (40-54); Hemoglobin 10.1 g/dL (13.0-16.5); Lymphocyte % 5.4 % (19-41); Mean Corp Hgb Conc 31.3 g/dL (32-36); Mean Corpuscular Hgb 24.7 pg (27.0-32.0); Mean Platelet Vol. 8.7 fl (6.2-12.0); Monocyte# 0.32 X10^3/uL; Monocyte% 4.3 % (0-10); NRBC Flagged by Analyzer 0 % (0-5); Neutrophil # 6.65 X10^3/uL (2.7-7.7); Neutrophil % 89.9 % (47-70); POSITIVE DIFFERENTIAL YES; Platelet Count 459 K/mm3 (150-450); RBC Distribution Width CV 19.6 % (11.6-14.6); RBC Distribution Width SD 55.9 fl (35.1-43.9); Red Blood Count 4.09 M/mm3 (4.6-6.2); White Blood Count 7.4 K/mm3 (4.4-11.0)
--- NOTE | 2023-11-14 07:56 | CPS ---
Pt refused to do SMI and refused smoking cessation
--- NOTE | 2023-11-14 08:03 | PN.HOSP_ITS ---
Reason for Visit Reason for Visit: Diagnoses Malignant neoplasm of unspecified part of unspecified bronchus or lung (11/13/23) Hypo-osmolality and hyponatremia (11/13/23) Unspecified toxic encephalopathy (11/13/23) Acute bronchitis, unspecified (11/13/23) Unspecified chronic bronchitis (11/13/23) Cachexia (11/13/23) Other nonspecific abnormal finding of lung field (11/13/23) Objective Data Objective Data Vital Signs: Vital Signs Temp Pulse Resp BP Pulse Ox O2 Del Method 97.5 F L 72 18 120/62 95 Room Air 11/14/23 06:10 11/14/23 06:10 11/14/23 06:10 11/14/23 06:10 11/14/23 07:35 11/14/23 07:35 Oxygen Delivery Method Room Air Weight: 99 lb 6.856 oz Body Mass Index (BMI) 14.6 Intake & Output: Intake and Output for Last 24 Hours 11/12/23 11/13/23 11/14/23 23:59 23:59 23:59 Intake Total 1305 / 1305 Output Total 350 / 350 250 / 250 Balance 955 / 955 -250 / -250 Lab / Micro Data 11/14/23 07:35 11/14/23 07:35 Labs: Laboratory Results - last 24 hr 11/13/23 18:31: WBC 9.1, RBC 4.53 L, Hgb 11.3 L, Hct 35.8 L, MCV 79.0 L, MCH 24.9 L, MCHC 31.6 L, RDW Std Deviation 53.6 H, RDW Coeff of [place] 19.1 H, Plt Count 496 H, MPV 8.7, Immature Gran % (Auto) 0.400, Neut % (Auto) 86.0 H, Lymph % (Auto) 6.7 L, [place] % (Auto) 6.7, Eos % (Auto) 0.0, Baso % (Auto) 0.2, Absolute Neuts (auto) 7.8 H, Absolute Lymphs (auto) 0.61 L, Nucleated RBC % 0, PT 16.7 H, INR 1.4, APTT 43.8 H, Sodium 128 L, Potassium 3.8, Chloride 94 L, Carbon Dioxide 23.0, Anion Gap 11, BUN 15, Creatinine 0.97, Estim Creat Clear Calc 46.83, Est GFR (MDRD) Af Amer 99, Est GFR (MDRD) Non-Af 82, BUN/Creatinine Ratio 15.4, Glucose 99, Lactic Acid 1.9, Calcium 8.2 L, Phosphorus 2.0 L, Magnesium 2.5, Total Bilirubin 0.40, AST 19, ALT 12 L, Alkaline Phosphatase 105, Total Protein 7.4, Albumin 2.6 L, Globulin 4.8 H, Albumin/Globulin Ratio 0.5 L, Cortisol 34.90 H 11/13/23 19:10: Urine Opiates Screen POSITIVE H, Urine Methadone Screen NEGATIVE, Ur Barbiturates Screen NEGATIVE, Ur Phencyclidine Scrn NEGATIVE, Ur Amphetamines Screen POSITIVE H, MDMA (Ecstasy) Screen POSITIVE H, U Benzodiazepines Scrn NEGATIVE, Urine Cocaine Screen NEGATIVE, U Cannabinoids Screen POSITIVE H, Ur Drug Screen Comment 11/13/23 19:16: Urine Color Yellow, Urine Clarity Cloudy, Urine pH 5.0, Ur Specific [place] 1.020, Urine Protein 100 H, Urine Glucose (UA) Normal, Urine Ketones 15 H, Urine Occult Blood Negative, Urine Nitrite Negative, Urine Bilirubin 1 H, Urine Urobilinogen 1 H, Ur Leukocyte Esterase 25 H, Urine RBC 0 SEEN, Urine WBC 0-5 SEEN, Ur Squamous Epith Cells 0-5 SEEN, Amorphous Sediment 2+ URATE, Urine Bacteria 2+, Urine Mucus 0 SEEN 11/13/23 21:39: Serum Osmolality 275 L, Ethyl Alcohol < 3.0 11/13/23 23:50: Urine Osmolality 659 ABG Data ABG results: ABG 11/13/23 19:00 Specimen Type ART Sample Site R Radial pH 7.43 Bicarbonate Actual 19.6 L Total CO2 21 Base Excess -5 L O2 Saturation 95 ABG pCO2 29.3 L ABG pO2 70 L Marc Test Positive O2 Delivery Device Not entered Vent Mode Not entered Radiography Diagnostic Testing: Radiology Impression Chest X-Ray 11/13/23 18:45 IMPRESSION: Left lower lobe pneumonia. Electronically Signed: Nam Coleman MD at 19:25 EDT , Brain CT 11/13/23 19:56 IMPRESSION: Negative head/brain CT without intravenous contrast. Electronically Signed: Nam Coleman MD at 21:05 EDT , Chest CTA 11/13/23 22:18 IMPRESSION: Large mass in the left lower lobe. There is also a soft tissue mass in the left hilum. These are suspicious for malignancy. Further evaluation with either biopsy or PET CT scan may be beneficial. Electronically Signed: Nam Coleman MD at 0:02 EDT , Physical Exam Narrative Seen and examined. Patient is confused and disoriented. He knows patchy thinks about his medical history. Does not know details about his details. His diagnosis, his left lower lobe squamous cell cancer and his oncologist with Dr. Chavez. It seems patient is still smoking half pack per day but previously he was smoking 2 and half packs per day Physical exam General: Alert, Oriented x3, Cooperative. Cancer cachexia BMI 14.7 kg/m? HEENT: Atraumatic, PERRLA, EOMI, Normocephalic Oral: No Gingival or Mucosal Lesions/ Ulcerations Neck: Supple, No JVD, Negative Carotid Bruits Chest wall/Lungs: Air entry diminished in bilateral lung bases. No crepitation/rhonchi Cardiovascular: Regular rate, Regular Rhythm, Normal S1, Normal S2, No M/G/R Abdomen: Bowel Sounds Present, Soft, Non Tender, Non-Distended : No dysuria. No renal angle tenderness. No suprapubic tenderness. Extremities: No edema, Capillary Refill Less than 3 Seconds Skin: No rashes, No breakdown Musculoskeletal: No Tenderness to Palpation of Joints or Extremities. Diffuse, chronic severe atrophy of muscle extremities, cranial fossil, paravertebral muscles. Chronic severe malnutrition. Neurological: Cranial nerves II-XII grossly intact, DTR 2+/4. Disoriented to time, oriented to place and person. Forgetfulness. Psych/Mental Status: Flat affect confused. Assessment & Plan Assessment/Plan (1) Infiltrate of lower lobe of left lung present on imaging study: (2) Acute exacerbation of chronic bronchitis: (3) Squamous cell carcinoma of lung: QUALIFIERS: Laterality: unspecified laterality Qualified Code(s): C34.90 - Malignant neoplasm of unspecified part of unspecified bronchus or lung (4) Cancer cachexia: (5) Hyponatremia: (6) Toxic encephalopathy: QUALIFIERS: Toxic encephalopathy cause: unspecified toxin Q ualified Code(s): G92.9 - Unspecified toxic encephalopathy PLAN: Plan 68-year-old gentleman with history of active neoplasm left lower lobe, complicated with left pleural effusion was brought to ED for not acting right on the day of admission. Patient lethargic, has not been taking meds, or eating well as per EMS squad. Recently diagnosed with lung cancer. Left foot was found cold and pain for 02/17. 1. Left lower lobe squamous cell carcinoma with suspected post-obstructive pneumonia with acute COPD exacerbation with history of chronic smoking/nicotine use dependence ~1 ppd x ~42 years with history of hypercalcemia of malignancy: The patient is being followed by Dr. Chavez of the oncology service with patient still FULL CODE. Admit to PCU. Continue IV Rocephin and IV Azithromycin, started in ED. Pneumonia workup. Urinary antigens are pending. On Tylenol for fever/mild pain. Give Morphine IV prn for severe (level 6-10/10) pain. Oncologist consulted and discussed with Dr. Chavez. PET scan reviewed and seems there is opacity on proximal esophagus. Does not seem active disease or metastasis to bone or adrenal. Patient agreeable for treatment but I do not think he has a clear understanding of his disease and currently is confused and disoriented. GI is consulted for EGD 2. Toxic encephalopathy with positive urine drug screen for amphetamines, ecstasy, opiates and THC this admission in the setting of known chronic EtOH abuse - Give Phenobarbital taper to prevent acute withdrawal. Give folate and MVI. 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 Otherwise, continue supportive care and monitor for improvement. Positive urine culture GPC/urinary colonization: Urine culture shows GPC possible Enterococcus more than 100,000 colonies. Urine sample from ED therefore not 48 hours Elena catheterization therefore I do not suspect CAUTI. patient denied burning micturition, any lower urinary tract symptoms prior to admission. Currently patient has Elena catheter. AUS shows WBC 0-5 cells, LE 25, nitrite negative therefore does not seem patient has UTI. 3. Worsening cancer cachexia with involuntary ~8 pound weight loss in the pat month due to aggressive malignancy with suspected superimposed protein-calorie malnutrition with recent diagnosis of hypercalcemia of malignancy - Noted. BMI 14.7 kg/m?. Consult to clinical dietitian 4. 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 Serum osmolarity 275. Urine osmolality 659. Urine electrolytes ordered. 5. Chronic pain syndrome; already on Percocet q. 6 hours prn in the setting of a complex medical history outlined above adding to the complexity of #1 - #4 - Hold Percocet for now. Multi-agent positive UDS noted above. 6. PVD; s/p Right femoral tibial bypass (2019) with subsequent occlusion with subsequent RLE AKA; with fasciotomy (2019) - Noted. Patient may need ECF if he cannot care for himself at home as this further complicates his case and may hamper his recovery in addition to his ability to live independently. Finally, we will consult PT/OT and case management to see this patient on rounds in the a.m. for further recommendations with help appreciated in advance for 7. Essential hypertension - Resume home regimen as previous. 8. Hyperlipidemia - Continue statin. 9. History of pneumonia - Noted. 10. History of recurrent DVT - Noted. 11. History of AAA - Noted. 12. History of mitral valve annular calcification - Noted. 13. History of LYLA - Noted. 14. Psoriasis - Stable. 15. GRETA - Resume current oral iron supplementation. 16. History of macrocytosis - Noted with patient microcytic with an MCV of 79 fL and a hemoglobin of 11.3 g/dL present on admission. 17. GERD - Continue PPI. 18. Listed allergy to PCN - Noted. Avoid these agents. 19. OA; with chronic back pain - Give Tylenol prn. 20. DVT prophylaxis - Lovenox 40 mg sq daily. Total time of the visit including total time spent in counseling or coordination of care, (more than 50% of the total time, spent in obtaining medical information from nurses and other ancillary care providers,explaining to the patient about labs, imaging, diagnosis and management of active complex medical conditions), review of CT PET scan of lung, discussion with oncologist, review of labs and imaging is 40 minutes. Microbiology Past 72 Hours 11/13/23 19:16 Urine Catheter - Elena Urine Culture - Preliminary GPC Poss Enterococcus sp Laboratory Results 11/13/23 18:31: WBC 9.1, RBC 4.53 L, Hgb 11.3 L, Hct 35.8 L, MCV 79.0 L, MCH 24.9 L, MCHC 31.6 L, RDW Std Deviation 53.6 H, RDW Coeff of [place] 19.1 H, Plt Count 496 H, MPV 8.7, Immature Gran % (Auto) 0.400, Neut % (Auto) 86.0 H, Lymph % (Auto) 6.7 L, [place] % (Auto) 6.7, Eos % (Auto) 0.0, Baso % (Auto) 0.2, Absolute Neuts (auto) 7.8 H, Absolute Lymphs (auto) 0.61 L, Nucleated RBC % 0, PT 16.7 H, INR 1.4, APTT 43.8 H, Sodium 128 L, Potassium 3.8, Chloride 94 L, Carbon Dioxide 23.0, Anion Gap 11, BUN 15, Creatinine 0.97, Estim Creat Clear Calc 46.83, Est GFR (MDRD) Af Amer 99, Est GFR (MDRD) Non-Af 82, BUN/Creatinine Ratio 15.4, Glucose 99, Lactic Acid 1.9, Calcium 8.2 L, Phosphorus 2.0 L, Magnesium 2.5, Total Bilirubin 0.40, AST 19, ALT 12 L, Alkaline Phosphatase 105, Total Protein 7.4, Albumin 2.6 L, Globulin 4.8 H, Albumin/Globulin Ratio 0.5 L, Cortisol 34.90 H 11/13/23 19:00: Specimen Type ART, Sample Site R Radial, pH 7.43, Bicarbonate Actual 19.6 L, Total CO2 21, Base Excess -5 L, O2 Saturation 95, ABG pCO2 29.3 L , ABG pO2 70 L, Marc Test Positive, O2 Delivery Device Not entered, Vent Mode Not entered 11/13/23 19:10: Urine Opiates Screen POSITIVE H, Urine Methadone Screen NEGATIVE, Ur Barbiturates Screen NEGATIVE, Ur Phencyclidine Scrn NEGATIVE, Ur Amphetamines Screen POSITIVE H, MDMA (Ecstasy) Screen POSITIVE H, U Benzodiazepines Scrn NEGATIVE, Urine Cocaine Screen NEGATIVE, U Cannabinoids Screen POSITIVE H, Ur Drug Screen Comment 11/13/23 19:16: Urine Color Yellow, Urine Clarity Cloudy, Urine pH 5.0, Ur Specific [place] 1.020, Urine Protein 100 H, Urine Glucose (UA) Normal, Urine Ketones 15 H, Urine Occult Blood Negative, Urine Nitrite Negative, Urine Bilirubin 1 H, Urine Urobilinogen 1 H, Ur Leukocyte Esterase 25 H, Urine RBC 0 SEEN, Urine WBC 0-5 SEEN, Ur Squamous Epith Cells 0-5 SEEN, Amorphous Sediment 2+ URATE, Urine Bacteria 2+, Urine Mucus 0 SEEN 11/13/23 21:39: Serum Osmolality 275 L, Ethyl Alcohol < 3.0 11/13/23 23:50: Urine Osmolality 659 11/14/23 07:35: WBC 7.4, RBC 4.09 L, Hgb 10.1 L, Hct 32.3 L, MCV 79.0 L, MCH 24.7 L, MCHC 31.3 L, RDW Std Deviation 55.9 H, RDW Coeff of [place] 19.6 H, Plt Count 459 H, MPV 8.7, Immature Gran % (Auto) 0.400, Neut % (Auto) 89.9 H, Lymph % (Auto) 5.4 L, [place] % (Auto) 4.3, Eos % (Auto) 0.0, Baso % (Auto) 0.0, Absolute Neuts (auto) 6.7, Absolute Lymphs (auto) 0.40 L, Nucleated RBC % 0, Sodium 130 L , Potassium 3.8, Chloride 98, Carbon Dioxide 22.0, Anion Gap 10, BUN 10, C reatinine 0.54 L, Estim Creat Clear Calc 57.94, Est GFR (MDRD) Af Amer 196, Est GFR (MDRD) Non-Af 162, BUN/Creatinine Ratio 18.6, Glucose 111 H, Calcium 7.4 L, Total Bilirubin 0.30, AST 37, ALT 14 L, Alkaline Phosphatase 86, Total Protein 6.2 L, Albumin 2.2 L, Globulin 4.0, Albumin/Globulin Ratio 0.6 L, TSH 0.65 Clinical Impression(s) from Imaging Studies Chest X-Ray 11/13/23 18:45 IMPRESSION: Left lower lobe pneumonia. Electronically Signed: Nam Coleman MD at 19:25 EDT , Brain CT 11/13/23 19:56 IMPRESSION: Negative head/brain CT without intravenous contrast. Electronically Signed: Nam Coleman MD at 21:05 EDT , Chest CTA 11/13/23 22:18 IMPRESSION: Large mass in the left lower lobe. There is also a soft tissue mass in the left hilum. These are suspicious for malignancy. Further evaluation with either biopsy or PET CT scan may be beneficial. Electronically Signed: Nam Colmean MD at 0:02 EDT , Charges/Coding Visit Charges Inpatient E&M: 45013 Subs Hosp L3
[2023-11-14 08:23] LABS: ALB/GLOB Ratio 0.6 RATIO (0.9-2.4); AST(SGOT) 37 U/L (15-37); Alanine Aminotransfer ALT/SGPT 14 U/L (16-61); Albumin, Serum 2.2 g/dL (3.2-5.0); Alkaline Phosphatase 86 U/L (45-117); Anion Gap 10 (5-15); BUN 10 mg/dL (7-18); BUN/Creat Ratio 18.6 RATIO (10-20); Calcium,Total 7.4 mg/dL (8.5-10.1); Chloride 98 mmol/L (98-107); Creatinine, Serum 0.54 mg/dL (0.70-1.30); EST Glomerular Filtration Rate 162 mL/min (>60); Est Glom Filt Rate - Afr Amer 196 mL/min (>60); Estimated Creatinine Clearance 57.94 ml/min; Glucose 111 mg/dL (74-106); Potassium 3.8 mmol/L (3.5-5.1); Protein, Total 6.2 g/dL (6.4-8.2); Sodium Level 130 mmol/L (136-145); Thyroid Stim Hormone (TSH) 0.65 uIU/mL (0.358-3.74)
[2023-11-14] MEDS: Enoxaparin 40 MG/0.4 ML Syringe SC (09:35)
[2023-11-14] MEDS: guaiFENesin 1,200 MG Tablet 1200 MG PO (09:36)
[2023-11-14] MEDS: amLODIPine 5 MG Tablet PO (09:36)
[2023-11-14] MEDS: MethylPREDNISolone 125 MG/2 ML Vial 60 MG IV ×2 (09:36→21:39)
[2023-11-14] MEDS: Folic Acid 1 MG Tablet PO (09:36)
[2023-11-14] MEDS: Cholecalciferol (Vit D3) 125 MCG CAPSULE (5,000 UNITS) PO (09:37)
[2023-11-14] MEDS: Ferrous Gluconate 324 MG Tablet PO (09:37)
[2023-11-14] MEDS: Ascorbic Acid 500 MG Tablet 1000 MG PO ×2 (09:37→16:42)
[2023-11-14] MEDS: Pantoprazole Sodium 40 MG Tablet PO (09:38)
[2023-11-14] MEDS: Lactobacillis Acidophilus 2 CAP PO ×2 (09:38→21:39)
[2023-11-14] MEDS: Thiamine Hydrochloride 100 MG Tablet PO (09:38)
[2023-11-14] MEDS: Zinc Sulfate 50 mg zinc (220 mg) ORAL capsule PO (09:39)
--- NOTE | 2023-11-14 09:49 | ONC.CONSULT ---
Assessment & Plan Assessment/Plan (1) Squamous cell carcinoma of lung: Status: Acute Code(s): C34.90 - Malignant neoplasm of unspecified part of unspecified bronchus or lung Qualifiers: Laterality: left Qualified Code(s): C34.92 - Malignant neoplasm of unspecified part of left bronchus or lung Plan: Squamous cell cancer of L lung with mediastinal nodes, chest wall invasion. Suggest continuing therapy for delirium. If Pt improve and discharged home, he can follow up with [facility] for treatment. (2) Cancer cachexia: Status: Acute Code(s): R64 - Cachexia Plan: Suggest starting Decadron, high protein diet. (3) Toxic encephalopathy: Status: Acute Code(s): G92.9 - Unspecified toxic encephalopathy Qualifiers: Toxic encephalopathy cause: unspecified toxin Qualified Code(s): G92.9 - Unspecified toxic encephalopathy Plan: To continue supportive care for delirium. (4) Abnormal imaging of intrathoracic organ: Status: Acute Code(s): R93.89 - Abnormal findings on diagnostic imaging of other specified body structures Plan: PET/CT on 11/10/2023 reviewed by me, shows L lower mass, L hilar and subcarinal nodes, also shows posterior tracheal mass? esophageal mass vs lung mass. Suggest GI evaluation for endoscopy. Pt denies dysphagia. HPI Consult Data Date of Service:: 11/14/23 PCP / Referring Provider: Dr. Tate Strange MD Attending: Dr. Dejuan Sherman MD Chief Complaint Chief Complaint: Asked to see Pt with NSCLC. History of Present Illness History of Present Illness: 68y.o.man with medical multiple medical problems, presented to [facility] with shortness of breath. CT of the chest on 10/17/2023 showed 7 cm cavitary mass left lower lobe with left hilar adenopathy. CT of the abdomen and pelvis on 10/18/2023 showed left lower lobe lung mass, 4.1 cm infrarenal abdominal aortic aneurysm, enlargement of the left adrenal gland, occlusion of the common iliac arteries bilaterally, ill-defined lucency in pelvis and proximal femurs. Bone scan on 10/20/2023 showed no evidence of bony metastases. FOB and transbronchial biopsy was done on 10/19/2023. Pathology report of low left lower lobe mass transbronchial biopsy showed squamous cell carcinoma. He was discharged from the hospital, seen in the office with persistent cough and hypercalcemia. Given Zometa as outpatient. Had a PET/CT done on 11/10/2023. He is now on admission to [facility] with Confusion, general weakness. Advanced Directives Power of Secretary Board Of Commissioners: No Living Will: No [facility] Medical History AAA (abdominal aortic aneurysm) Lung cancer Macrocytosis Lung nodule Encounter for screening for malignant neoplasm of lung LYLA (acute kidney injury) Back pain Femoral-tibial bypass graft occlusion, right Mitral valve annular calcification ETOH abuse Recurrent deep vein thrombosis (DVT) Nicotine dependence Peripheral vascular occlusive disease Essential (primary) hypertension Above knee amputation of right lower extremity Psoriasis Hyperlipidemia Psoriasis (a type of skin inflammation) Vitamin deficiency Vascular disease GERD (gastroesophageal reflux disease) History of pneumonia Chronic bronchitis Carpal tunnel syndrome History of blood transfusion Bone fracture Back problem Home Medications ?Medication ?Instructions ?Recorded ?Last Taken ?Type folic acid 1 mg tablet 1 mg PO DAILY #90 tabs 01/10/22 Unknown Rx Handicap Placard #1 ea 04/11/22 Unknown Rx ferrous gluconate 236 mg (27 mg 236 mg PO DAILY 10/29/23 Unknown History iron) tablet methotrexate sodium 2.5 mg tablet 2.5 mg PO .COMPLEX #32 tabs 11/09/23 Unknown Rx pantoprazole 40 mg tablet,delayed 40 mg PO QAM Reflux #90 tabs 11/09/23 Unknown Rx release oxycodone-acetaminophen 5 mg-325 1 tab PO Q6H PRN pain 30 days #60 11/11/23 Unknown Rx mg tablet (Percocet) tabs amlodipine 5 mg tablet (Norvasc) 5 mg PO DAILY 11/13/23 Unknown History Allergy/AdvReac Type Severity Reaction Status Date / Time coconut Allergy Severe Anaphylaxis Verified 11/13/23 17:58 shrimp Allergy Mild fever Verified 11/05/23 08:46 Penicillins AdvReac Nausea/Vom/ Verified 11/05/23 08:46 Diarrhea Family History Grandmother Arthritis Uncle Diabetes Hypertension Brother Diabetes Hypertension Mother Hypertension Surgical History History of femoropopliteal bypass (07/2019) History of leg amputation History of tonsillectomy and adenoidectomy History of fasciotomy Social History Smoking Status: Current every day smoker tobacco type: cigarettes Tobacco: How many years used: 42 Electronic Cigarette Use: not used second hand exposure: Yes quit status: considering quitting alcohol intake: current alcohol intake frequency: 3 or more drinks per day Alcohol type: beer substance use type: does not use Physical Exam Const Constitutional Narrative: lethargic but easily arousable. HEENT normocephalic Eyes conjunctivae normal and no scleral icterus Neck no lymphadenopathy Lymph Lymphatic: no lymphadenopathy noted Resp normal respiratory effort and clear to auscultation bilaterally Cardio regular rate, regular rhythm, S1 normal heart sound, S2 normal heart sound and no murmurs GI normal to inspection, nondistended, normoactive bowel sounds Extremity Extremity Narrative: +clubbing. +R AKA Skin no rashes or lesions noted Neuro moves all extremities Vital Signs Temperature 97.5 F L 11/14/23 06:10 Temperature Source Temporal 11/14/23 06:10 Pulse Rate 72 11/14/23 06:10 Respiratory Rate 18 11/14/23 06:10 Respiratory Effort Normal, Non-Labored 11/14/23 08:07 Respiratory Depth Normal 11/14/23 08:07 Respiratory Pattern Normal 11/14/23 08:07 Blood Pressure 120/62 11/14/23 06:10 Blood Pressure Mean 81 11/14/23 06:10 Blood Pressure Source Monitor 11/14/23 06:10 Blood Pressure Position Semi-Fowlers 11/14/23 06:10 Blood Pressure Location Left Arm 11/14/23 06:10 Pulse Ox 95 11/14/23 07:35 Oxygen Delivery Method Room Air 11/14/23 08:07 Laboratory Results - last 24 hr 11/13/23 18:31: WBC 9.1, RBC 4.53 L, Hgb 11.3 L, Hct 35.8 L, MCV 79.0 L, MCH 24.9 L, MCHC 31.6 L, RDW Std Deviation 53.6 H, RDW Coeff of [place] 19.1 H, Plt Count 496 H, MPV 8.7, Immature Gran % (Auto) 0.400, Neut % (Auto) 86.0 H, Lymph % (Auto) 6.7 L, [place] % (Auto) 6.7, Eos % (Auto) 0.0, Baso % (Auto) 0.2, Absolute Neuts (auto) 7.8 H, Absolute Lymphs (auto) 0.61 L, Nucleated RBC % 0, PT 16.7 H, INR 1.4, APTT 43.8 H, Sodium 128 L, Potassium 3.8, Chloride 94 L, Carbon Dioxide 23.0, Anion Gap 11, BUN 15, Creatinine 0.97, Estim Creat Clear Calc 46.83, Est GFR (MDRD) Af Amer 99, Est GFR (MDRD) Non-Af 82, BUN/Creatinine Ratio 15.4, Glucose 99, Lactic Acid 1.9, Calcium 8.2 L, Phosphorus 2.0 L, Magnesium 2.5, Total Bilirubin 0.40, AST 19, ALT 12 L, Alkaline Phosphatase 105, Total Protein 7.4, Albumin 2.6 L, Globulin 4.8 H, Albumin/Globulin Ratio 0.5 L, Cortisol 34.90 H 11/13/23 19:10: Urine Opiates Screen POSITIVE H, Urine Methadone Screen NEGATIVE, Ur Barbiturates Screen NEGATIVE, Ur Phencyclidine Scrn NEGATIVE, Ur Amphetamines Screen POSITIVE H, MDMA (Ecstasy) Screen POSITIVE H, U Benzodiazepines Scrn NEGATIVE, Urine Cocaine Screen NEGATIVE, U Cannabinoids Screen POSITIVE H, Ur Drug Screen Comment 11/13/23 19:16: Urine Color Yellow, Urine Clarity Cloudy, Urine pH 5.0, Ur Specific [place] 1.020, Urine Protein 100 H, Urine Glucose (UA) Normal, Urine Ketones 15 H, Urine Occult Blood Negative, Urine Nitrite Negative, Urine Bilirubin 1 H, Urine Urobilinogen 1 H, Ur Leukocyte Esterase 25 H, Urine RBC 0 SEEN, Urine WBC 0-5 SEEN, Ur Squamous Epith Cells 0-5 SEEN, Amorphous Sediment 2+ URATE, Urine Bacteria 2+, Urine Mucus 0 SEEN 11/13/23 21:39: Serum Osmolality 275 L, Ethyl Alcohol < 3.0 11/13/23 23:50: Urine Osmolality 659 11/14/23 07:35: WBC 7.4, RBC 4.09 L, Hgb 10.1 L, Hct 32.3 L, MCV 79.0 L, MCH 24.7 L, MCHC 31.3 L, RDW Std Deviation 55.9 H, RDW Coeff of [place] 19.6 H, Plt Count 459 H, MPV 8.7, Immature Gran % (Auto) 0.400, Neut % (Auto) 89.9 H, Lymph % (Auto) 5.4 L, [place] % (Auto) 4.3, Eos % (Auto) 0.0, Baso % (Auto) 0.0, Absolute Neuts (auto) 6.7, Absolute Lymphs (auto) 0.40 L, Nucleated RBC % 0, Sodium 130 L, Potassium 3.8, Chloride 98, Carbon Dioxide 22.0, Anion Gap 10, BUN 10, Creatinine 0.54 L, Estim Creat Clear Calc 57.94, Est GFR (MDRD) Af Amer 196, Est GFR (MDRD) Non-Af 162, BUN/Creatinine Ratio 18.6, Glucose 111 H, Calcium 7.4 L, Total Bilirubin 0.30, AST 37, ALT 14 L, Alkaline Phosphatase 86, Total Protein 6.2 L, Albumin 2.2 L, Globulin 4.0, Albumin/Globulin Ratio 0.6 L, TSH 0.65 Diagnostic Data Chest X-Ray 11/13/23 18:45 IMPRESSION: Left lower lobe pneumonia. Electronically Signed: Nam Coleman MD at 19:25 EDT , Brain CT 11/13/23 19:56 IMPRESSION: Negative head/brain CT without intravenous contrast. Electronically Signed: Nam Coleman MD at 21:05 EDT , Chest CTA 11/13/23 22:18 IMPRESSION: Large mass in the left lower lobe. There is also a soft tissue mass in the left hilum. These are suspicious for malignancy. Further evaluation with either biopsy or PET CT scan may be beneficial. Electronically Signed: Nam Coleman MD at 0:02 EDT , 11/10/2023 PET/CT reviewed. PET/PET/CT Tumor Base -Thigh Init IMPRESSION: 1. ABNORMAL EXAMINATION INDICATIVE OF MALIGNANT VIABLE NEOPLASM. 2. Increased glucose concentration noted in the right lower lung field, right lower lobe fulfills quantitative criteria for viable neoplasm. 3. Enhanced tracer uptake noted in the subcarinal mediastinum to the right of the midline fulfills quantitative criteria for malignant transformation. 4. The right hemithorax pleural effusion does not fulfill quantitative criteria for malignant transformation. (Gordon, et al, Chest 122:1918, 2002). Electronic Signature Jose F Ball D.O. Charges/Coding Visit Charges Office Visits / Consults: [id number] IP Consult L3
--- NOTE | 2023-11-14 11:36 | CPS ---
Pt sleeping at this time. SMI held.
--- NOTE | 2023-11-14 12:28 | CASEMGMT ---
KANIKA STARK Face to Face with patient for initial transition planning/care coordination assessment. KANIKA STARK introduced self and role at [facility]. Patient lying in bed, alert and confused, not able to answer questions appropriately. KANIKA STARK called daughter, Kasey, daughter willing to participate in assessment and is able to answer all questions appropriately. Care providers, pharmacy, and demographics verified. PCP: Alie Specialists: Scott, oncologsit; [facility]erred [facility]acy: [facility] Insurance: [employer] Prescription Benefit: yes Living Will/HPOA: none LNOK: daughter, niece Living Arrangements: Patient lives alone in a mobile home with 6 steps and railing to enter. Patient was independent at home prior to recent illness. Transportation: self, daughter, niece DME/HHC: Patient has walker, electric scooter, and shower chair at home. Patient is acitve with HHC but daughter not sure of agency, will provided information when she finds out. Daughter wishes for patient to discharge to SNF as he is not able to care for himself. KANIKA STARK updated daughter that CM will provide SNF list in patient's room, daughter voiced understanding. Daughter states she has no further needs or concerns at this time. SW updated regarding request for SNF. CM to follow for discharge planning needs that may arise. Disposition Plan: TBD, anticipate SNF pending progress with therapy. Veronique JEFFREY, RN, CM
[2023-11-14] MEDS: 0.9% Normal Saline (1000mL) 1,000 ML 70 ML IV (13:47)
--- NOTE | 2023-11-14 14:58 | CASEMGMT ---
Social Work SW received referral from RNCM that pt's dgt is requesting SNF placement. SW met with pt's dgt and a list of SNF providers including quality and resource use data and consistent with the patient?s preferred geographic region, medical needs, and insurance network were provided from the [employer] Guide. Pt's dgt to review list and SW will follow up on Thursday for choices. Pt's dgt feels that pt may need residential placement as he was not caring for himself at home. SW to follow. JOEL Healy
[2023-11-14 15:16] LABS: Protein:Creat Ratio 602 mg/g CRE (0-200); Urine Chloride < 10 mmol/L (Not Establ.); Urine Sodium < 5 mmol/L (Not Establ.)
--- NOTE | 2023-11-14 15:24 | CPS ---
Attempted to do SMI and Pep with pt at this time. Pt unable to perform proper technique of either device
[2023-11-14] MEDS: Ceftriaxone 1 GM/50 ML BAG IV (20:54)
[2023-11-14] MEDS: Senna Tablet 1 TABLET PO (21:52)
[2023-11-14] MEDS: Polyethylene Glycol 3350 17 GM PACKET PO (21:52)
[2023-11-14] MEDS: Azithromycin 500 MG in Dextrose 5%-Water (250mL Bag) 250 ML 250 MG IV (21:58)
[2023-11-14] MEDS: Gabapentin 300 MG Capsule PO (22:15)
[2023-11-14] MEDS: traZODone 100 MG Tablet PO (23:26)
[2023-11-15 03:19] VITALS: BP 135/73; PULSE 91; RESP 18; TEMP 36.7; O2SAT 95
[2023-11-15] MEDS: Phenobarbital 32.4 MG Tablet 64.8 MG PO ×6 (03:21→22:44)
[2023-11-15] MEDS: 0.9% Normal Saline (1000mL) 1,000 ML 70 ML IV ×2 (03:22→17:40)
[2023-11-15 05:51] LABS: Absolute Neutrophil Count 8.2 X10^3/uL (2.0-7.7); Basophil# 0.01 X10^3/uL; Basophil% 0.1 % (0-1); Hematocrit 31.1 % (40-54); Lymphocyte % 3.4 % (19-41); Mean Corp Hgb Conc 32.2 g/dL (32-36); Mean Corpuscular Hgb 25.1 pg (27.0-32.0); Mean Corpuscular Volume 78.1 fL (80-94); Mean Platelet Vol. 8.8 fl (6.2-12.0); Monocyte# 0.21 X10^3/uL; Monocyte% 2.4 % (0-10); NRBC Flagged by Analyzer 0 % (0-5); Neutrophil # 8.24 X10^3/uL (2.7-7.7); Neutrophil % 93.6 % (47-70); POSITIVE DIFFERENTIAL YES; Platelet Count 447 K/mm3 (150-450); RBC Distribution Width CV 19.9 % (11.6-14.6); RBC Distribution Width SD 55.5 fl (35.1-43.9); Red Blood Count 3.98 M/mm3 (4.6-6.2); White Blood Count 8.8 K/mm3 (4.4-11.0)
[2023-11-15 06:20] LABS: AST(SGOT) 35 U/L (15-37); Alanine Aminotransfer ALT/SGPT 14 U/L (16-61); Alkaline Phosphatase 72 U/L (45-117); Anion Gap 9 (5-15); BUN 8 mg/dL (7-18); Bilirubin, Direct 0.09 mg/dL (0.00-0.30); Calcium,Total 7.6 mg/dL (8.5-10.1); Chloride 102 mmol/L (98-107); Creatinine, Serum 0.36 mg/dL (0.70-1.30); EST Glomerular Filtration Rate 255 mL/min (>60); Est Glom Filt Rate - Afr Amer 308 mL/min (>60); Estimated Creatinine Clearance 57.94 ml/min; Globulin 3.9 g/dL (2.2-4.2); Glucose 147 mg/dL (74-106); Potassium 3.7 mmol/L (3.5-5.1); Protein, Total 5.9 g/dL (6.4-8.2); Sodium Level 134 mmol/L (136-145)
[2023-11-15 06:49] VITALS: O2SAT 93
--- NOTE | 2023-11-15 07:30 | CPS ---
Attempted to do SMI and Pep with pt. Pt unable to perform proper techniques
--- NOTE | 2023-11-15 07:35 | PN.HOSP_ITS ---
Reason for Visit Reason for Visit: Diagnoses Malignant neoplasm of unspecified part of unspecified bronchus or lung (11/13/23) Malignant neoplasm of unspecified part of left bronchus or lung (11/13/23) Hypo-osmolality and hyponatremia (11/13/23) Unspecified toxic encephalopathy (11/13/23) Acute bronchitis, unspecified (11/13/23) Unspecified chronic bronchitis (11/13/23) Cachexia (11/13/23) Other nonspecific abnormal finding of lung field (11/13/23) Abnormal findings on diagnostic imaging of other specified body structures (11/13/23) Objective Data Objective Data Vital Signs: Vital Signs Temp Pulse Resp BP Pulse Ox O2 Del Method 98.1 F 91 18 135/73 H 93 Room Air 11/15/23 03:19 11/15/23 03:19 11/15/23 03:19 11/15/23 03:19 11/15/23 06:49 11/15/23 06:49 Oxygen Delivery Method Room Air Weight: 99 lb 6.856 oz Body Mass Index (BMI) 14.6 Intake & Output: Intake and Output for Last 24 Hours 11/13/23 11/14/23 11/15/23 23:59 23:59 23:59 Intake Total 1305 / 1305 2618.3333 / 2618.3333 950.83 / 950.83 Output Total 350 / 350 1750 / 1750 500 / 500 Balance 955 / 596 254.1616 / 868.3333 450.83 / 450.83 Medical Nutrition Assessment Dietitian: Malnutrition Criteria Met Start: 11/14/23 10:35 Freq: Status: Active Protocol: Document 11/14/23 10:35 VIELKA (Rec: 11/14/23 10:35 VIELKA [id number]) Nutrition Malnutrition Evidence of Malnutrition Exists Yes Malnutrition (severe): Chronic Evidenced By Suboptimal Energy Intake ( Severe),Weight Loss (Severe), Physical Changes (Severe) Clinical Problem Chronic Disease or Condition Related Malnutrition Etiology related to metastatic lung cancer and inadequate energy intake Signs/Symptoms as evidenced by po intake meeting <75% of estimated nutritional needs and sig unintended wt loss of 7.3% x 1 month - obvious fat loss/ muscle depletion throughout body and BMI 14.7. Status Active Problem Recommendation Dietitian Recommendations/Changes Due to signs and symptoms of malnutrition, will liberalize diet to Regular with fortified foods as able Rec continue ensure compact 4x /day w/ medpass as ordered Will provide magic cup w/ lunch and dinner for increased nutrition if consumed Lab / Micro Data 11/15/23 05:10 11/15/23 05:10 Labs: Laboratory Results - last 24 hr 11/14/23 07:35: WBC 7.4, RBC 4.09 L, Hgb 10.1 L, Hct 32.3 L, MCV 79.0 L, MCH 24.7 L, MCHC 31.3 L, RDW Std Deviation 55.9 H, RDW Coeff of [place] 19.6 H, Plt Count 459 H, MPV 8.7, Immature Gran % (Auto) 0.400, Neut % (Auto) 89.9 H, Lymph % (Auto) 5.4 L, [place] % (Auto) 4.3, Eos % (Auto) 0.0, Baso % (Auto) 0.0, Absolute Neuts (auto) 6.7, Absolute Lymphs (auto) 0.40 L, Nucleated RBC % 0, Sodium 130 L , Potassium 3.8, Chloride 98, Carbon Dioxide 22.0, Anion Gap 10, BUN 10, C reatinine 0.54 L, Estim Creat Clear Calc 57.94, Est GFR (MDRD) Af Amer 196, Est GFR (MDRD) Non-Af 162, BUN/Creatinine Ratio 18.6, Glucose 111 H, Calcium 7.4 L, Total Bilirubin 0.30, AST 37, ALT 14 L, Alkaline Phosphatase 86, Total Protein 6.2 L, Albumin 2.2 L, Globulin 4.0, Albumin/Globulin Ratio 0.6 L, TSH 0.65 11/14/23 14:20: U Random Total Protein 68.0 H, Ur Random Sodium < 5, Urine Creatinine 113.00, Protein/Creatinin Ratio 602 H, Urine Potassium 14.0, Urine Chloride < 10 11/15/23 05:10: WBC 8.8, RBC 3.98 L, Hgb 10.0 L, Hct 31.1 L, MCV 78.1 L, MCH 25.1 L, MCHC 32.2, RDW Std Deviation 55.5 H, RDW Coeff of [place] 19.9 H, Plt Count 447, MPV 8.8, Immature Gran % (Auto) 0.500, Neut % (Auto) 93.6 H, Lymph % (Auto) 3.4 L, [place] % (Auto) 2.4, Eos % (Auto) 0.0, Baso % (Auto) 0.1, Absolute Neuts (auto) 8.2 H, Absolute Lymphs (auto) 0.30 L, Nucleated RBC % 0, Sodium 134 L, Potassium 3.7, Chloride 102, Carbon Dioxide 23.0, Anion Gap 9, BUN 8, Creatinine 0.36 L, Estim Creat Clear Calc 57.94, Est GFR (MDRD) Af Amer 308, Est GFR (MDRD) Non-Af 255, BUN/Creatinine Ratio 22.0 H, Glucose 147 H, Calcium 7.6 L, Total Bilirubin 0.20, Direct Bilirubin 0.09, AST 35, ALT 14 L, Alkaline Phosphatase 72, Total Protein 5.9 L, Albumin 2.0 L, Globulin 3.9 Micro: Microbiology 11/13/23 23:50 Urine Catheter - Elena Legionella Antigen - Final 11/13/23 23:50 Urine Catheter - Elena Streptococcus pneumoniae Antigen (M - Final 11/13/23 19:16 Urine Catheter - Elena Urine Culture - Preliminary GPC Poss Enterococcus sp Physical Exam Narrative Seen and examined. Patient is more awake and oriented x 3. He knows little about his diagnosis of left lower lobe squamous cell cancer and his oncologist with Dr. Chavez. It seems patient is still smoking half pack per day but previously he was smoking 2 and half packs per day Physical exam General: Alert, Oriented x3, Cooperative. Cancer cachexia BMI 14.7 kg/m? HEENT: Atraumatic, PERRLA, EOMI, Normocephalic Oral: No Gingival or Mucosal Lesions/ Ulcerations Neck: Supple, No JVD, Negative Carotid Bruits Chest wall/Lungs: Air entry diminished in bilateral lung bases. No crepitation/rhonchi Cardiovascular: Regular rate, Regular Rhythm, Normal S1, Normal S2, No M/G/R Abdomen: Bowel Sounds Present, Soft, Non Tender, Non-Distended : Elena catheter. No dysuria. No renal angle tenderness. No suprapubic tenderness. Extremities: No edema, Capillary Refill Less than 3 Seconds Skin: No rashes, No breakdown Musculoskeletal: No Tenderness to Palpation of Joints or Extremities. Diffuse, chronic severe atrophy of muscle extremities, cranial fossil, paravertebral muscles. Chronic severe malnutrition. Neurological: Cranial nerves II-XII grossly intact, DTR 2+/4. Disoriented to time, oriented to place and person. Forgetfulness. Psych/Mental Status: Flat affect confused. Assessment & Plan Assessment/Plan (1) Infiltrate of lower lobe of left lung present on imaging study: (2) Acute exacerbation of chronic bronchitis: (3) Squamous cell carcinoma of lung: QUALIFIERS: Laterality: left Qualified Code(s): C34.92 - Malignant neoplasm of unspecified part of left bronchus or lung (4) Cancer cachexia: (5) Hyponatremia: (6) Toxic encephalopathy: QUALIFIERS: Toxic encephalopathy cause: unspecified toxin Q ualified Code(s): G92.9 - Unspecified toxic encephalopathy PLAN: Plan 68-year-old gentleman with history of active neoplasm left lower lobe, complicated with left pleural effusion was brought to ED for not acting right on the day of admission. Patient lethargic, has not been taking meds, or eating well as per EMS squad. Recently diagnosed with lung cancer. Left foot was found cold and pain for 02/17. 1. Left lower lobe squamous cell carcinoma with suspected post-obstructive pneumonia with acute COPD exacerbation with history of chronic smoking/nicotine use dependence ~1 ppd x ~42 years with history of hypercalcemia of malignancy: The patient is being followed by Dr. Chavez of the oncology service with patient still FULL CODE. Admit to PCU. Continue IV Rocephin and IV Azithromycin, started in ED. Pneumonia workup. Urinary antigens are pending. On Tylenol for fever/mild pain. Give Morphine IV prn for severe (level 6-10/10) pain. Oncologist consulted and discussed with Dr. Chavez. PET scan reviewed and seems there is opacity on proximal esophagus. Does not seem active disease or metastasis to bone or adrenal. Patient agreeable for treatment but I do not think he has a clear understanding of his disease and currently is confused and disoriented. GI is consulted for EGD 11/14: Continue IV antibiotic Rocephin and azithromycin. 2. Toxic encephalopathy with positive urine drug screen for amphetamines, ecstasy, opiates and THC this admission in the setting of known chronic EtOH abuse - Give Phenobarbital taper to prevent acute withdrawal. Give folate and MVI. Minimize [employer]PER[employer]-active medications. Otherwise, continue supportive care and monitor for improvement. 11/14: Patient is responding well, awake alert oriented x 3. Decreased appetite. Encephalopathy resolved. Most likely Enterococcus asymptomatic bacteriuria but UTI cannot be ruled out: Urine culture shows GPC possible Enterococcus more than 100,000 colonies. Urine sample from ED therefore not 48 hours Elena catheterization therefore I do not suspect CAUTI. patient denied burning micturition, any lower urinary tract symptoms prior to admission. Currently patient has Elena catheter. AUS shows WBC 0-5 cells, LE 25, nitrite negative therefore does not seem patient has UTI. 11/14: Urine culture shows Enterococcus more than 100,000 colonies. Patient is allergic to penicillin with nausea vomiting diarrhea and fever. He is already on ceftriaxone for pneumonia and nothing that will cover it. 3. Worsening cancer cachexia with involuntary ~8 pound weight loss in the pat month due to aggressive malignancy with suspected superimposed protein-calorie malnutrition with recent diagnosis of hypercalcemia of malignancy - Noted. BMI 14.7 kg/m?. Consult to clinical dietitian 4. 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 Serum osmolarity 275. Urine osmolality 659. Urine electrolytes ordered. 5. Chronic pain syndrome; already on Percocet q. 6 hours prn in the setting of a complex medical history outlined above adding to the complexity of #1 - #4 - Hold Percocet for now. Multi-agent positive UDS noted above. 6. PVD; s/p Right femoral tibial bypass (2019) with subsequent occlusion with subsequent RLE AKA; with fasciotomy (2019) - Noted. Patient may need ECF if he cannot care for himself at home as this further complicates his case and may hamper his recovery in addition to his ability to live independently. Finally, we will consult PT/OT and case management to see this patient on rounds in the a.m. for further recommendations with help appreciated in advance for 7. Essential hypertension - Resume home regimen as previous. 8. Hyperlipidemia - Continue statin. 9. History of pneumonia - Noted. 10. History of recurrent DVT - Noted. 11. History of AAA - Noted. 12. History of mitral valve annular calcification - Noted. 13. History of LYLA - Noted. 14. Psoriasis - Stable. 15. GRETA - Resume current oral iron supplementation. 16. History of macrocytosis - Noted with patient microcytic with an MCV of 79 fL and a hemoglobin of 11.3 g/dL present on admission. 17. GERD - Continue PPI. 18. Listed allergy to PCN - Noted. Avoid these agents. 19. OA; with chronic back pain - Give Tylenol prn. 20. DVT prophylaxis - Lovenox 40 mg sq daily. Total time of the visit including total time spent in counseling or coordination of care, (more than 50% of the total time, spent in obtaining medical information from nurses and other ancillary care providers,explaining to the patient about labs, imaging, diagnosis and management of active complex medical conditions), review of CT PET scan of lung, discussion with oncologist, review of labs and imaging is 40 minutes. Clinical Impression(s) from Imaging Studies Chest X-Ray 11/13/23 18:45 IMPRESSION: Left lower lobe pneumonia. Electronically Signed: Nam Coleman MD at 19:25 EDT , Brain CT 11/13/23 19:56 IMPRESSION: Negative head/brain CT without intravenous contrast. Electronically Signed: Nam Coleman MD at 21:05 EDT , Chest CTA 11/13/23 22:18 IMPRESSION: Large mass in the left lower lobe. There is also a soft tissue mass in the left hilum. These are suspicious for malignancy. Further evaluation with either biopsy or PET CT scan may be beneficial. Electronically Signed: Nam Coleman MD at 0:02 EDT , Charges/Coding Visit Charges Inpatient E&M: 77934 Subs Hosp L2
[2023-11-15] MEDS: Ferrous Gluconate 324 MG Tablet PO (07:51)
[2023-11-15] MEDS: MethylPREDNISolone 125 MG/2 ML Vial 60 MG IV ×2 (07:52→20:55)
[2023-11-15] MEDS: Ascorbic Acid 500 MG Tablet 1000 MG PO ×2 (07:52→15:34)
[2023-11-15] MEDS: Pantoprazole Sodium 40 MG Tablet PO (07:52)
[2023-11-15] MEDS: Polyethylene Glycol 3350 17 GM PACKET PO (07:53)
[2023-11-15] MEDS: guaiFENesin 1,200 MG Tablet 1200 MG PO ×2 (07:53→20:04)
[2023-11-15] MEDS: Lactobacillis Acidophilus 2 CAP PO ×2 (07:54→20:04)
[2023-11-15] MEDS: Enoxaparin 40 MG/0.4 ML Syringe SC (07:54)
[2023-11-15] MEDS: Cholecalciferol (Vit D3) 125 MCG CAPSULE (5,000 UNITS) PO (07:55)
[2023-11-15] MEDS: Folic Acid 1 MG Tablet PO (07:55)
[2023-11-15] MEDS: Thiamine Hydrochloride 100 MG Tablet PO (07:56)
[2023-11-15] MEDS: Zinc Sulfate 50 mg zinc (220 mg) ORAL capsule PO (07:56)
[2023-11-15 08:07] VITALS: BP 124/70; PULSE 70
[2023-11-15] MEDS: amLODIPine 5 MG Tablet PO (08:08)
[2023-11-15] MEDS: Senna Tablet 1 TABLET PO ×2 (08:09→20:06)
[2023-11-15 09:00] VITALS: BP 120/72; PULSE 72; RESP 18; TEMP 36.8
[2023-11-15 15:00] VITALS: BP 124/75; PULSE 83; PULSE 85; RESP 16; TEMP 36.4; O2SAT 93
--- NOTE | 2023-11-15 15:33 | EX.PCM.CON.G ---
HPI Consult Data Date of Consult: 11/15/23 HPI Narrative Reason for Consultation: Abnormal CT HPI Narrative: LUIS EDUARDO PRATER, is a 68 M who has Squamous cell cancer of L lung with mediastinal nodes, chest wall invasion. He also has a left pleural effusion and active disease carinal mediastinum and PET scan/CT. This was diagnosed October of this year. He was admitted at [facility]. He was transferred to [facility] for treatment for his cancer because he is followed by Dr. Chavez. He has a past medical history of essential hypertension, hyperlipidemia, chronic EtOH abuse; at least 3 drinks per day, history of pneumonia, tobacco abuse; ~1 ppd x ~42 years with subsequent chronic bronchitis, history of He also has a history of recurrent DVT, PVD; s/p Right femoral tibial bypass (2019) with subsequent occlusion, history of RLE AKA; with fasciotomy (2019), history of AAA, history of mitral valve annular calcification, history of LYLA, psoriasis, GRETA. He presented to [facility] ER in a state of confusion with acute worsening of his chronic cachexia. I was asked to see him due to an abnormal image that shows a possible underlying esophageal malignancy. [facility] Medical History AAA (abdominal aortic aneurysm) Lung cancer Macrocytosis Lung nodule Encounter for screening for malignant neoplasm of lung LYLA (acute kidney injury) Back pain Femoral-tibial bypass graft occlusion, right Mitral valve annular calcification ETOH abuse Recurrent deep vein thrombosis (DVT) Nicotine dependence Peripheral vascular occlusive disease Essential (primary) hypertension Above knee amputation of right lower extremity Psoriasis Hyperlipidemia Psoriasis (a type of skin inflammation) Vitamin deficiency Vascular disease GERD (gastroesophageal reflux disease) History of pneumonia Chronic bronchitis Carpal tunnel syndrome History of blood transfusion Bone fracture Back problem Home Medications ?Medication ?Instructions ?Recorded ?Last Taken ?Type folic acid 1 mg tablet 1 mg PO DAILY #90 tabs 01/10/22 Unknown Rx Handicap Placard #1 ea 04/11/22 Unknown Rx ferrous gluconate 236 mg (27 mg 236 mg PO DAILY 10/29/23 Unknown History iron) tablet methotrexate sodium 2.5 mg tablet 2.5 mg PO .COMPLEX #32 tabs 11/09/23 Unknown Rx pantoprazole 40 mg tablet,delayed 40 mg PO QAM Reflux #90 tabs 11/09/23 Unknown Rx release oxycodone-acetaminophen 5 mg-325 1 tab PO Q6H PRN pain 30 days #60 11/11/23 Unknown Rx mg tablet (Percocet) tabs amlodipine 5 mg tablet (Norvasc) 5 mg PO DAILY 11/13/23 Unknown History Allergy/AdvReac Type Severity Reaction Status Date / Time coconut Allergy Severe Anaphylaxis Verified 11/13/23 17:58 shrimp Allergy Mild fever Verified 11/05/23 08:46 Penicillins AdvReac Nausea/Vom/ Verified 11/05/23 08:46 Diarrhea Family History Grandmother Arthritis Uncle Diabetes Hypertension Brother Diabetes Hypertension Mother Hypertension Surgical History History of femoropopliteal bypass (07/2019) History of leg amputation History of tonsillectomy and adenoidectomy History of fasciotomy Social History Smoking Status: Current every day smoker tobacco type: cigarettes Tobacco: How many years used: 42 Electronic Cigarette Use: not used second hand exposure: Yes quit status: considering quitting alcohol intake: current alcohol intake frequency: 3 or more drinks per day Alcohol type: beer substance use type: does not use ROS Constitutional Constitutional: Reports systems reviewed and no addt'l complaints, except as documented Eyes Eyes: Reports systems reviewed and no addt'l complaints, except as documented ENT HEENT: Reports systems reviewed and no addt'l complaints, except as documented Cardiovascular Cardiovascular: Reports systems reviewed and no addt'l complaints, except as documented Respiratory/Chest Respiratory/Chest: Reports systems reviewed and no addt'l complaints, except as documented Gastrointestinal Gastrointestinal: Reports systems reviewed and no addt'l complaints, except as documented Genitourinary Genitourinary: Reports systems reviewed and no addt'l complaints, except as documented Musculoskeletal Musculoskeletal: Reports systems reviewed and no addt'l complaints, except as documented and other Details: Above-knee amputation of the right leg Integumentary Integumentary: Reports systems reviewed and no addt'l complaints, except as documented Neurologic Neurologic: Reports systems reviewed and no addt'l complaints, except as documented Psychiatric Psychiatric: Reports systems reviewed and no addt'l complaints, except as documented Endocrine Endocrinology: Reports systems reviewed and no addt'l complaints, except as documented Hematologic/Lymphatic Hematologic/Lymphatic: Reports systems reviewed and no addt'l complaints, except as documented Allergic/Immunologic Allergic/Immunologic: Reports systems reviewed and no addt'l complaints, except as documented Physical Exam Narrative Seen and examined. Physical exam General: Alert, Oriented x3, Cooperative. Cancer cachexia BMI 14.7 kg/m? HEENT: Atraumatic, PERRLA, EOMI, Normocephalic Oral: No Gingival or Mucosal Lesions/ Ulcerations Neck: Supple, No JVD, Negative Carotid Bruits Chest wall/Lungs: Air entry diminished in bilateral lung bases. No crepitation/rhonchi Cardiovascular: Regular rate, Regular Rhythm, Normal S1, Normal S2, No M/G/R Abdomen: Bowel Sounds Present, Soft, Non Tender, Non-Distended : Elena catheter. No dysuria. No renal angle tenderness. No suprapubic tenderness. Extremities: No edema, Capillary Refill Less than 3 Seconds Skin: No rashes, No breakdown Musculoskeletal: No Tenderness to Palpation of Joints or Extremities. Diffuse, chronic severe atrophy of muscle extremities, cranial fossil, paravertebral muscles. Chronic severe malnutrition. Neurological: Cranial nerves II-XII grossly intact, DTR 2+/4. Disoriented to time, oriented to place and person. Forgetfulness. Psych/Mental Status: Flat affect confused. Medical Records Data Medical Nutrition Assessment Dietitian: Malnutrition Criteria Met Start: 11/14/23 10:35 Freq: Status: Active Protocol: Document 11/14/23 10:35 VIELKA (Rec: 11/14/23 10:35 [facility] [id number]) Nutrition Malnutrition Evidence of Malnutrition Exists Yes Malnutrition (severe): Chronic Evidenced By Suboptimal Energy Intake ( Severe),Weight Loss (Severe), Physical Changes (Severe) Clinical Problem Chronic Disease or Condition Related Malnutrition Etiology related to metastatic lung cancer and inadequate energy intake Signs/Symptoms as evidenced by po intake meeting <75% of estimated nutritional needs and sig unintended wt loss of 7.3% x 1 month - obvious fat loss/ muscle depletion throughout body and BMI 14.7. Status Active Problem Recommendation Dietitian Recommendations/Changes Due to signs and symptoms of malnutrition, will liberalize diet to Regular with fortified foods as able Rec continue ensure compact 4x /day w/ medpass as ordered Will provide magic cup w/ lunch and dinner for increased nutrition if consumed Lab / Micro Data 11/15/23 05:10 11/15/23 05:10 Labs: Laboratory Results - last 24 hr 11/15/23 05:10: WBC 8.8, RBC 3.98 L, Hgb 10.0 L, Hct 31.1 L, MCV 78.1 L, MCH 25.1 L, MCHC 32.2, RDW Std Deviation 55.5 H, RDW Coeff of [place] 19.9 H, Plt Count 447, MPV 8.8, Immature Gran % (Auto) 0.500, Neut % (Auto) 93.6 H, Lymph % (Auto) 3.4 L, [place] % (Auto) 2.4, Eos % (Auto) 0.0, Baso % (Auto) 0.1, Absolute Neuts (auto) 8.2 H, Absolute Lymphs (auto) 0.30 L, Nucleated RBC % 0, Sodium 134 L, Potassium 3.7, Chloride 102, Carbon Dioxide 23.0, Anion Gap 9, BUN 8, Creatinine 0.36 L, Estim Creat Clear Calc 57.94, Est GFR (MDRD) Af Amer 308, Est GFR (MDRD) Non-Af 255, BUN/Creatinine Ratio 22.0 H, Glucose 147 H, Calcium 7.6 L, Total Bilirubin 0.20, Direct Bilirubin 0.09, AST 35, ALT 14 L, Alkaline Phosphatase 72, Total Protein 5.9 L, Albumin 2.0 L, Globulin 3.9 Micro: Microbiology 11/13/23 19:16 Urine Catheter - Elena Urine Culture - Final Enterococcus faecalis 11/13/23 23:50 Urine Catheter - Elena Legionella Antigen - Final 11/13/23 23:50 Urine Catheter - Elena Streptococcus pneumoniae Antigen (M - Final Assessment & Plan Assessment/Plan (1) Infiltrate of lower lobe of left lung present on imaging study: (2) Acute exacerbation of chronic bronchitis: (3) Squamous cell carcinoma of lung: QUALIFIERS: Laterality: left Qualified Code(s): C34.92 - Malignant neoplasm of unspecified part of left bronchus or lung (4) Cancer cachexia: (5) Hyponatremia: (6) Toxic encephalopathy: QUALIFIERS: Toxic encephalopathy cause: unspecified toxin Qualified Code(s): G92.9 - Unspecified toxic encephalopathy PLAN: Plan 68-year-old gentleman with history of untreated squamous cell carcinoma left lower lobe, complicated with left pleural effusion was brought to ED for altered mental status and lethargy. His imaging on PET scan had showed possible lesion in the esophagus. Esophageal lesion-differential diagnosis does include squamous cell carcinoma of the esophagus, adenocarcinoma of the esophagus, esophageal stricture, and of thickening or regular Kadi esophagitis, erosive esophagitis. He should undergo an upper endoscopy to evaluate his upper GI tract. He was explained alternatives, risk, benefits including not withstanding bleeding, infection, sepsis, perforation, need for emergent urgent . He will have an ASA of 3. Charges/Coding Visit Charges Inpatient E&M: 72424 Init Hosp L3
[2023-11-15 20:45] VITALS: BP 126/67; PULSE 87; RESP 18; TEMP 36.3; O2SAT 94
[2023-11-15] MEDS: 0.9% Saline Lock 10 ML Syringe IV (20:55)
[2023-11-15] MEDS: Ceftriaxone 1 GM/50 ML BAG IV (20:55)
[2023-11-15] MEDS: Azithromycin 500 MG in Dextrose 5%-Water (250mL Bag) 250 ML 250 MG IV (22:38)
[2023-11-15] MEDS: Dicyclomine 10 MG Capsule 20 MG PO (22:44)
[2023-11-16] VITALS (16 sets, daily range): BP systolic 98–135; BP diastolic 55–85; PULSE 81–113; RESP 18–35; TEMP 36.4–36.7; O2SAT 79–96; BMI 14.6
[2023-11-16] MEDS: Phenobarbital 32.4 MG Tablet 64.8 MG PO ×3 (03:03→12:32)
[2023-11-16] MEDS: 0.9% Saline Lock 10 ML Syringe IV ×2 (03:05→18:56)
[2023-11-16 05:40] LABS: Absolute Lymphocyte Count 0.47 X10^3/uL (0.83-4.51); Absolute Neutrophil Count 10.8 X10^3/uL (2.0-7.7); Basophil# 0.01 X10^3/uL; Basophil% 0.1 % (0-1); Eosinophil# 0.02 X10^3/uL; Eosinophils% 0.2 % (0-5); Hematocrit 36.3 % (40-54); Hemoglobin 11.7 g/dL (13.0-16.5); Lymphocyte # 0.47 X10^3/ul (0.83-4.51); Mean Corp Hgb Conc 32.2 g/dL (32-36); Mean Corpuscular Volume 77.6 fL (80-94); Mean Platelet Vol. 8.6 fl (6.2-12.0); Monocyte# 0.48 X10^3/uL; Monocyte% 4.1 % (0-10); NRBC Flagged by Analyzer 0 % (0-5); Neutrophil # 10.75 X10^3/uL (2.7-7.7); POSITIVE DIFFERENTIAL YES; POSITIVE MORPHOLOGY YES; Platelet Count 493 K/mm3 (150-450); RBC Distribution Width CV 20.5 % (11.6-14.6); RBC Distribution Width SD 55.2 fl (35.1-43.9); Red Blood Count 4.68 M/mm3 (4.6-6.2); White Blood Count 11.8 K/mm3 (4.4-11.0)
[2023-11-16 06:13] LABS: AST(SGOT) 32 U/L (15-37); Alanine Aminotransfer ALT/SGPT 19 U/L (16-61); Albumin, Serum 2.3 g/dL (3.2-5.0); Alkaline Phosphatase 88 U/L (45-117); Anion Gap 8 (5-15); BUN 4 mg/dL (7-18); BUN/Creat Ratio 9.5 RATIO (10-20); Bilirubin, Direct 0.08 mg/dL (0.00-0.30); Calcium,Total 7.8 mg/dL (8.5-10.1); Chloride 101 mmol/L (98-107); Creatinine, Serum 0.42 mg/dL (0.70-1.30); EST Glomerular Filtration Rate 216 mL/min (>60); Est Glom Filt Rate - Afr Amer 262 mL/min (>60); Estimated Creatinine Clearance 57.68 ml/min; Globulin 4.3 g/dL (2.2-4.2); Glucose 125 mg/dL (74-106); Protein, Total 6.6 g/dL (6.4-8.2); Sodium Level 129 mmol/L (136-145)
[2023-11-16 06:17] LABS: International Normalized Ratio 1.2; Prothrombin Time (Protime)PT. 15.1 SECONDS (11.7-14.9)
[2023-11-16 06:44] LABS: Differential Indicated SCAN CRITERIA MET
[2023-11-16] MEDS: 0.9% Normal Saline (1000mL) 1,000 ML 70 ML IV (08:29)
--- NOTE | 2023-11-16 08:45 | PN.HOSP_ITS ---
Reason for Visit Reason for Visit: Diagnoses Malignant neoplasm of unspecified part of unspecified bronchus or lung (11/13/23) Malignant neoplasm of unspecified part of left bronchus or lung (11/13/23) Hypo-osmolality and hyponatremia (11/13/23) Unspecified toxic encephalopathy (11/13/23) Acute bronchitis, unspecified (11/13/23) Unspecified chronic bronchitis (11/13/23) Cachexia (11/13/23) Other nonspecific abnormal finding of lung field (11/13/23) Abnormal findings on diagnostic imaging of other specified body structures (11/13/23) Subjective Subjective Feeling weak. Objective Data Objective Data Vital Signs: Vital Signs Temp Pulse Resp BP Pulse Ox O2 Del Method O2 Flow Rate 36.4 C L 98 24 H 129/85 H 94 Room Air 2 11/16/23 08:37 11/16/23 08:37 11/16/23 08:37 11/16/23 08:37 11/16/23 08:37 11/16/23 08:37 11/15/23 20:45 Oxygen Flow Rate (L/min) 2 Oxygen Delivery Method Room Air Weight: 44.9 kg Body Mass Index (BMI) 14.6 Intake & Output: Intake and Output for Last 24 Hours 11/14/23 11/15/23 11/16/23 23:59 23:59 23:59 Intake Total 2618.3333 / 2618.3333 2565.83 / 2615.83 985.33 / 985.33 Output Total 1750 / 1750 1050 / 1450 1650 / 1650 Balance 868.3333 / 868.3333 1515.83 / 1165.83 -664.67 / -664.67 Medical Nutrition Assessment Dietitian: Malnutrition Criteria Met Start: 11/14/23 10:35 Freq: Status: Active Protocol: Document 11/14/23 10:35 VIELKA (Rec: 11/14/23 10:35 VIELKA [id number]) Nutrition Malnutrition Evidence of Malnutrition Exists Yes Malnutrition (severe): Chronic Evidenced By Suboptimal Energy Intake ( Severe),Weight Loss (Severe), Physical Changes (Severe) Clinical Problem Chronic Disease or Condition Related Malnutrition Etiology related to metastatic lung cancer and inadequate energy intake Signs/Symptoms as evidenced by po intake meeting <75% of estimated nutritional needs and sig unintended wt loss of 7.3% x 1 month - obvious fat loss/ muscle depletion throughout body and BMI 14.7. Status Active Problem Recommendation Dietitian Recommendations/Changes Due to signs and symptoms of malnutrition, will liberalize diet to Regular with fortified foods as able Rec continue ensure compact 4x /day w/ medpass as ordered Will provide magic cup w/ lunch and dinner for increased nutrition if consumed Lab / Micro Data 11/16/23 05:10 11/16/23 05:10 Labs: Laboratory Results - last 24 hr 11/16/23 05:10: WBC 11.8 H, RBC 4.68, Hgb 11.7 L, Hct 36.3 L, MCV 77.6 L, MCH 25.0 L, MCHC 32.2, RDW Std Deviation 55.2 H, RDW Coeff of [place] 20.5 H, Plt Count 493 H, MPV 8.6, Immature Gran % (Auto) 0.600, Neut % (Auto) 91.0 H, Lymph % (Auto) 4.0 L, [place] % (Auto) 4.1, Eos % (Auto) 0.2, Baso % (Auto) 0.1, Absolute Neuts (auto) 10.8 H, Absolute Lymphs (auto) 0.47 L, Nucleated RBC % 0, PT 15.1 H , INR 1.2, APTT 28.0, Sodium 129 L, Potassium 4.0, Chloride 101, Carbon Dioxide 20.0 L, Anion Gap 8, BUN 4 L, Creatinine 0.42 L, Estim Creat Clear Calc 57.68, Est GFR (MDRD) Af Amer 262, Est GFR (MDRD) Non-Af 216, BUN/Creatinine Ratio 9.5 L, Glucose 125 H, Calcium 7.8 L, Total Bilirubin 0.30, Direct Bilirubin 0.08, AST 32, ALT 19, Alkaline Phosphatase 88, Total Protein 6.6, Albumin 2.3 L, G lobulin 4.3 H Micro: Microbiology 11/13/23 19:16 Urine Catheter - Elena Urine Culture - Final Enterococcus faecalis 11/13/23 23:50 Urine Catheter - Elena Legionella Antigen - Final 11/13/23 23:50 Urine Catheter - Elena Streptococcus pneumoniae Antigen (M - Final Physical Exam Const alert Constitutional Narrative: cachectic. afebrile. Resp normal respiratory effort, no retractions, no use of accessory muscles and clear to auscultation bilaterally Cardio regular rate, regular rhythm, S1 normal heart sound and S2 normal heart sound GI normal to inspection, nondistended, normoactive bowel sounds and soft to palpation Extremity normal to inspection Neuro Sensorium / Orientation: awake and alert Assessment & Plan Assessment/Plan (1) Infiltrate of lower lobe of left lung present on imaging study: (2) Acute exacerbation of chronic bronchitis: (3) Squamous cell carcinoma of lung: QUALIFIERS: Laterality: left Qualified Code(s): C34.92 - Malignant neoplasm of unspecified part of left bronchus or lung (4) Cancer cachexia: (5) Hyponatremia: (6) Toxic encephalopathy: QUALIFIERS: Toxic encephalopathy cause: unspecified toxin Q ualified Code(s): G92.9 - Unspecified toxic encephalopathy PLAN: Plan UTI * enterococcus faecalis (VSE) * change abx to ciprofloxacin. LLL squamous cell carcinoma * follow up with Dr. Chavez as outpt. * confirmed on Biopsy on 10/18 * PET on 11/09: 1. ABNORMAL EXAMINATION INDICATIVE OF MALIGNANT VIABLE NEOPLASM. 2. Increased glucose concentration noted in the right lower lung field, right lower lobe fulfills quantitative criteria for viable neoplasm.3. Enhanced tracer uptake noted in the subcarinal mediastinum to the right of the midline fulfills quantitative criteria for malignant transformation. 4. The right hemithorax pleural effusion does not fulfill quantitative criteria for malignant transformation. * GI consulted plan for EGD. Toxic/metabolic encephalopathy * From illicit substances and prescribed narcotics, hypercalcemia * Rx screen + opiates, amphetamines, MDMA and cannabinoids. * Improving Hypercalcemia * likely from malignancy * improved with IVF * monitor Severe protein calorie malnutrition * supplements * 2/2 underlying malignancy Acute COPD exacerbation * complicated by lung CA * improving * change methylpred to prednisone Alcohol withdrawal * phenobarbital. thiamine and folate. Debility * profoundly weak given his underlying medical conditions. * Declined by CC. Additional referrals made. * Medically stable for discharge Chronic conditions: * Hyponatremia: stable. 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 6 hours prn * PVD; s/p Right femoral tibial bypass (2019) with subsequent occlusion with subsequent RLE AKA; with fasciotomy (2019) - Noted. Patient may need ECF if he cannot care for himself at home as this further complicates his case and may hamper his recovery in addition to his ability to live independently. Finally, we will consult PT/OT and case management to see this patient on rounds in the a.m. for further recommendations with help appreciated in advance for * Essential hypertension - Resume home regimen as previous. * Hyperlipidemia - Continue statin. * History of recurrent DVT DVT prophylaxis: enoxaparin Charges/Coding Visit Charges Inpatient E&M: 03927 Subs Hosp L2
[2023-11-16 09:26] LABS: Anisocytosis 1+
[2023-11-16] MEDS: Ciprofloxacin 400 MG/200 ML BAG 200 MG IV ×2 (10:28→20:34)
--- NOTE | 2023-11-16 10:45 | CASEMGMT ---
Addendum entered by Isa Quintero 11/16/23 13:48: [facility] declined. SW updated. Isa Quintero DC Planning Asst. Original Note: Discharge Planning Referral sent via [facility] to [facility]. Isa Quintero DC Planning Asst.
--- NOTE | 2023-11-16 10:58 | CASEMGMT ---
Social Work Pt does not have LW/POA as per admitting RN, pt declined further information. GERI Solis
--- NOTE | 2023-11-16 11:53 | PRE.ANES_ITS ---
ASA Classification* ASA Classification ASA Classification: 4 and E Assessment & Plan Anesthesia* Anesthesia Assessment Anesthesia Assessment: Discussed sedation and/or anesthesia options, risks, benefits, and alternatives with patient/parents/legal guardian/POA. Questions invited. The patient/parents/legal guardian/POA seems to understand and agrees to proceed with anesthesia plan. Reviewed the physical assessment, medical history, allergy history and patient home medications list prior to surgery/procedure/anesthetic and documented any changes. Performed airway and anesthesia risk assessments. Anesthesia Type Anesthesia Type: MAC Anesthesia Focused Assessment* Temperature: 97.6 F Pulse Rate: 98 Blood Pressure: 129/85 Respiratory Rate: 24 Pulse Ox: 96 Airway Assessment Mouth opens: >3 cm Mallampati Score: II Focused Labs Anesthesia Preop lab: CBC WBC 11.8 K/mm3 (4.4-11.0) H 11/16/23 05:10 RBC 4.68 M/mm3 (4.6-6.2) 11/16/23 05:10 Hgb 11.7 g/dL (13.0-16.5) L 11/16/23 05:10 Hct 36.3 % (40-54) L 11/16/23 05:10 Plt Count 493 K/mm3 (150-450) H 11/16/23 05:10 CHEMISTRY Potassium 4.0 mmol/L (3.5-5.1) 11/16/23 05:10 Sodium 129 mmol/L (136-145) L 11/16/23 05:10 Magnesium 2.5 mg/dL (1.6-2.6) 11/13/23 18:31 Phosphorus 2.0 mg/dL (2.5-4.9) L 11/13/23 18:31 BUN 4 mg/dL (7-18) L 11/16/23 05:10 Creatinine 0.42 mg/dL (0.70-1.30) L 11/16/23 05:10 Glucose 125 mg/dL (74-106) H 11/16/23 05:10 TSH 0.65 uIU/mL (0.358-3.74) 11/14/23 07:35 COAG PT 15.1 SECONDS (11.7-14.9) H 11/16/23 05:10 Pre-Assessment Diagnosis/Proposed Procedure Planned Operative Procedure(s): EGD Anesthesia History 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 When Was Last Pacemaker Check QUESTION #4 FULL TEXT: You/Your Family Experience fever (hyperthermia) with Anesthesia Last Oral Intake Last Oral intake: Last Oral Intake NPO since 00:00 11/16/23 01:34 Meds taken in AM with sips of No 11/16/23 01:34 water? Meds patient instructed to take am of surgery PONV PONV - drop machine operator: PONV - drop machine operator Female HX of Motion Sickness HX of N/V After Surgery Non-Smoker Duration of Surgery greater than 60 minutes Number of Risk Factors PONV Score Height & Weight Height & Weight: Anesthesia: Height & Weight Height 5 ft 9 in 11/16/23 01:34 Weight: 44.9 kg 11/16/23 05:04 Body Mass Index (BMI) 14.6 11/16/23 05:04 Respiratory Assessment Respiratory Assessment - drop machine operator: Respiratory Tract Infection Hx - drop machine operator Hx Respiratory Tract Infection No 12/30/19 11:31 STOP Sleep Apnea STOP Sleep Apnea - drop machine operator: STOP Sleep Apnea - drop machine operator Hx Hypertension No 11/14/23 08:30 Hx Sleep Apnea No 11/13/23 22:34 CPAP BIPAP Do you snore loudly (louder No 11/13/23 22:34 than talking or can be heard Do you often feel tired/ No 11/13/23 22:34 fatigued/ sleepy during daytime? Has anyone observed you stop No 11/13/23 22:34 breathing during sleep? STOP Results Negative 11/13/23 22:34 QUESTION #5 FULL TEXT : Do you snore loudly (louder than talking or can be heard through closed doors)? Tobacco Use History Tobacco Use History - drop machine operator: Tobacco Use History - drop machine operator Tobacco Use Smoking Status Current every day smoker 11/14/23 07:57 Hx Tobacco Use Yes 11/13/23 22:34 Years Smoking Packs Smoked per Day Smoking Cessation Date was within the last 15 years Hx Smoking Cessation Date Hx Smoking Cessation Counseling Hematologic Medial History Hematologic Hx - drop machine operator: Hematologic Medical Hx - tire balancer Hx of Blood Transfusion Yes 11/13/23 22:34 Hx of Transfusion in last 3 No 11/13/23 22:34 Months Date of Last Transfusion (if within last 3 months) Ever experience any problems No 11/13/23 22:34 with transfusion(s)? Specify any problems Hx of Preganancy in last 3 N/A 11/13/23 22:34 Months Nurse Filling Out Transfusion [email or web address] 11/13/23 22:34 & Questions: Date: 11/13/23 11/13/23 22:34 Time: 23:47 11/13/23 22:34 Patient unable to answer at this time (ie. confused, unrespo /Reproduction History /Reproductive History - drop machine operator: /Reproductive Hx- drop machine operator Hx Now No 11/16/23 01:34 Gestational Age (in weeks): EDC: Hx Hx Para Hx Section SAB Active Medications Active Medications: Current Medications Generic Name Dose Route Start Last Admin Trade Name Freq PRN Reason Stop Dose Admin Albuterol Sulfate 2.5 mg 11/13/23 22:23 Albuterol 2.5 Mg/3 Ml Vial.Neb. INHALATION Q2H PRN PRN SOB &/OR WHEEZING Amlodipine Besylate 5 mg 11/14/23 10:00 11/16/23 11:04 Amlodipine 5 Mg Tablet PO Not Given DAILY [facility] Protocol Ascorbic Acid 1,000 mg 11/14/23 08:00 11/16/23 07:30 Ascorbic Acid 500 Mg Tablet PO Not Given BIDCM [facility] Calamine/Phenol 1 applic 11/16/23 14:00 Menthol/Lanolin/Calamine/Znox 113 Gm Tube TOPICAL TID [facility] Protocol Cholecalciferol 125 mcg 11/14/23 10:00 11/16/23 07:31 Cholecalciferol (Vit D3) 125 Mcg Capsule (5,000 Units) PO Not Given DAILY [facility] Dicyclomine HCl 20 mg 11/13/23 22:23 11/15/23 22:44 Dicyclomine 10 Mg Capsule PO 20 mg Q6H PRN PRN Administration abdominal discomfort Enoxaparin Sodium 40 mg 11/14/23 10:00 11/16/23 08:01 Enoxaparin 40 Mg/0.4 Ml Syringe SC Not Given DAILY [facility] Ferrous Gluconate 324 mg 11/14/23 08:00 11/16/23 07:30 Ferrous Gluconate 324 Mg Tablet PO Not Given DAILYCM [facility] Folic Acid 1 mg 11/14/23 08:00 11/16/23 07:30 Folic Acid 1 Mg Tablet PO Not Given DAILYCM [facility] Gabapentin 300 mg 11/13/23 22:23 11/14/23 22:15 Gabapentin 300 Mg Capsule PO 300 mg Q8H PRN PRN Administration moderate to severe anxiety Guaifenesin 1,200 mg 11/14/23 10:00 11/16/23 07:31 Guaifenesin 1,200 Mg Tablet PO Not Given BID [facility] Hydroxyzine Pamoate 50 mg 11/13/23 22:23 Hydroxyzine Noemí 25 Mg Capsule PO Q4H PRN PRN mild anxiety Sodium Chloride 1,000 mls @ 70 mls/hr 11/13/23 22:18 11/16/23 11:05 IV 0 mls/hr .[id number] TOYA Infusion Sodium Chloride 250 mls @ 15 mls/hr 11/13/23 22:36 IV .[id number] PRN Additional IVPB Infusion Sodium Chloride 250 mls @ 15 mls/hr 11/13/23 22:36 IV .[id number] PRN Saline Flush Ciprofloxacin 400 mg in 200 mls @ 200 mls/hr 11/16/23 10:00 11/16/23 11:49 Cipro IV Infused Q12 TOYA Infusion Loperamide HCl 2 mg 11/13/23 22:23 Loperamide 2 Mg Capsule PO Q4H PRN PRN Loose Stools Magnesium Hydroxide 30 ml 11/13/23 22:23 Magnesium Hydroxide 30 Ml Udc PO DAILY PRN PRN Constipation Nicotine 14 mg 11/14/23 10:00 11/15/23 07:53 Nicotine 14 Mg Patch TD 14 mg DAILY TOYA Administration Nutritional Formula (Lactose Free) 118 ml 11/14/23 08:00 11/16/23 11:04 Ensure Compact 118 Ml Liquid PO Not Given TIDCM TO[facility] Nutritional Formula (Lactose Free) 120 ml 11/16/23 12:00 11/16/23 11:04 Ensure Plus High Protein 120 Ml Liquid PO Not Given TIDCM [facility] Pantoprazole Sodium 40 mg 11/14/23 10:00 11/16/23 11:04 Pantoprazole Sodium 40 Mg Tablet PO Not Given QAM TOYA Phenobarbital 64.8 mg 11/13/23 23:00 11/16/23 06:28 Phenobarbital 32.4 Mg Tablet PO 11/18/23 06:59 64.8 mg Q6H TOYA Administration Taper Polyethylene Glycol 17 gm 11/14/23 22:00 11/16/23 07:31 Polyethylene Glycol 3350 17 Gm Packet PO Not Given DAILY [facility] Prednisone 40 mg 11/16/23 09:05 Prednisone 20 Mg Tablet PO 11/20/23 08:01 BREAKFAST TOYA Promethazine HCl 25 mg 11/13/23 22:23 Promethazine 25 Mg/Ml Syringe IM Q6H PRN PRN Breakthrough Nausea/Vomiting Senna 1 tablet 11/14/23 22:00 11/16/23 07:31 Senna Tablet PO Not Given BID TOYA Sodium Chloride 10 - 40 ml 11/13/23 22:36 11/16/23 03:05 0.9% Saline Lock 10 Ml Syringe IV 10 ml UD PRN Administration SALINE FLUSH Thiamine HCl 100 mg 11/14/23 08:00 11/16/23 07:30 Thiamine Hydrochloride 100 Mg Tablet PO Not Given DAILYCM TOYA Trazodone HCl 100 mg 11/13/23 22:23 11/14/23 23:26 Trazodone 100 Mg Tablet PO 100 mg QHS PRN Administration INSOMNIA Zinc Sulfate 50 mg 11/14/23 10:00 11/16/23 07:31 Zinc Sulfate 50 Mg Zinc (220 Mg) Oral Capsule PO Not Given DAILY TOYA PFSH Medical History AAA (abdominal aortic aneurysm) Lung cancer Macrocytosis Lung nodule Encounter for screening for malignant neoplasm of lung LYLA (acute kidney injury) Back pain Femoral-tibial bypass graft occlusion, right Mitral valve annular calcification ETOH abuse Recurrent deep vein thrombosis (DVT) Nicotine dependence Peripheral vascular occlusive disease Essential (primary) hypertension Above knee amputation of right lower extremity Psoriasis Hyperlipidemia Psoriasis (a type of skin inflammation) Vitamin deficiency Vascular disease GERD (gastroesophageal reflux disease) History of pneumonia Chronic bronchitis Carpal tunnel syndrome History of blood transfusion Bone fracture Back problem Home Medications ?Medication ?Instructions ?Recorded ?Last Taken ?Type folic acid 1 mg tablet 1 mg PO DAILY #90 tabs 01/10/22 Unknown Rx Handicap Placard #1 ea 04/11/22 Unknown Rx ferrous gluconate 236 mg (27 mg 236 mg PO DAILY 10/29/23 Unknown History iron) tablet methotrexate sodium 2.5 mg tablet 2.5 mg PO .COMPLEX #32 tabs 11/09/23 Unknown Rx pantoprazole 40 mg tablet,delayed 40 mg PO QAM Reflux #90 tabs 11/09/23 Unknown Rx release oxycodone-acetaminophen 5 mg-325 1 tab PO Q6H PRN pain 30 days #60 11/11/23 Unknown Rx mg tablet (Percocet) tabs amlodipine 5 mg tablet (Norvasc) 5 mg PO DAILY 11/13/23 Unknown History Allergy/AdvReac Type Severity Reaction Status Date / Time coconut Allergy Severe Anaphylaxis Verified 11/13/23 17:58 shrimp Allergy Mild fever Verified 11/05/23 08:46 Penicillins AdvReac Nausea/Vom/ Verified 11/05/23 08:46 Diarrhea Family History Grandmother Arthritis Uncle Diabetes Hypertension Brother Diabetes Hypertension Mother Hypertension Surgical History History of femoropopliteal bypass (07/2019) History of leg amputation History of tonsillectomy and adenoidectomy History of fasciotomy Social History Smoking Status: Current every day smoker tobacco type: cigarettes Tobacco: How many years used: 42 Electronic Cigarette Use: not used second hand exposure: Yes quit status: considering quitting alcohol intake: current alcohol intake frequency: 3 or more drinks per day Alcohol type: beer substance use type: does not use Review of Systems (Anesthesia) ROS Narrative System reviewed and no additional complaints, except as documented.
[2023-11-16] MEDS: predniSONE 20 MG Tablet 40 MG PO (12:33)
[2023-11-16] MEDS: Menthol/Lanolin/Calamine/Znox 113 GM Tube 1 APPLIC TOPICAL ×2 (12:34→22:28)
[2023-11-16] MEDS: hydrOXYzine PAM 25 MG Capsule 50 MG PO (13:12)
[2023-11-16] MEDS: Albuterol 2.5 MG/3 ML VIAL.NEB. INHALATION (13:23)
--- NOTE | 2023-11-16 14:00 | CASEMGMT ---
RG called patient's niece Roxana. RG let Roxana know that [facility] declined patient. RG went over the list with Roxana. Roxana asked if a referrals could be made to [place], [facility], and [place]. RG asked Isa to make referrals. Juana Tse PRODUCT APPLICATIONS ENGINEER [place]
--- NOTE | 2023-11-16 14:03 | CASEMGMT ---
Addendum entered by Isa Quintero 11/16/23 16:11: [facility] has declined. Isa Quintero DC Planning Asst. Addendum entered by Isa Quintero 11/16/23 15:23: [facility] has accepted. Isa Quintero DC Planning Asst Original Note: Discharge Planning Referral sent to [facility], [facility] at [place], and [facility]. Isa Quintero DC Planning Asst.
--- NOTE | 2023-11-16 15:37 | CHAPLAIN ---
Type of Pastoral Visit _x__ Initial Visit ___ Follow-up Visit ___ On-call Visit ___ General Patient Visit ___ Spiritual Assessment ___ Family Conference ___ Bereavement ___ Rapid Response ___ Code Blue ___ Other (describe below) Pastoral Care Referral From _x__ Patient ___ Family ___ Nurse ___ Physician ___ Svp ___ Cash Posting Representative _x__ Other (describe below) Sacrament/Intervention _x__ Active listening ___ Anointing ___ Rastafarian ___ Bereavement ___ Communion ___ Sanaz exploration ___ ___ Life review ___ Prayer ___ Reconciliation ___ Sacrament of Sick _x__ Supportive presence ___ Wedding ___ Other (describe below) Pastoral Comments patient is calling out for help; pt is on the referral list and a visit began at this time; pt is asking to be repositioned in bed and has his 02 off; LIGHT COIL WINDER is called for assistance; LIGHT COIL WINDER comes with help to reposition patient; pt is asked about his comfort, his needs, and his requests; pt continues to speak of his need for repositioning and offers swear words; pt demands help in repositioning; RN called and comes immediately into room where pt ask her for assistance; pt then asks this grocery store clerk to help remove a blanket; pt moves about but states that he feels more comfortable; pt is offered prayer but he does not respond; pt is offered presence to sit with him but pt does not respond;
--- NOTE | 2023-11-16 16:14 | NURSING ---
Spoke with Roxana Roman his niece, gave her an update.
--- NOTE | 2023-11-16 17:36 | PN.HOSP_ITS ---
Hospitalist Note Discussed case with the patient's niece, Roxana. Explained the overall poor prognosis patient is experiencing. She offered additional insight that the patient was notified of lung mass that he had back in 2021 but did not seek attention for it until a couple years later. Had it biopsied over at [place]. I explained to her that with everything that is going on with him that his overall prognosis is poor and that he would not be a candidate for any kind chemo therapy. With patient's profound cachexia, debility and what appears to be cyanosis of his left lower extremity, he would be a very good hospice candidate. The niece will speak it over with the patient's daughter. The niece is a former lead radiologic technologist so is medically well versed. And plan is for hospice to see the patient and hopefully the patient go to inpatient hospice unit. The niece seem to be in agreement with that. Unfortunately the patient has not been deemed a medical power of deputy attorney general so was not able to change the patient's CODE STATUS at this time.
[2023-11-16] MEDS: Acetaminophen 325 MG Tablet 650 MG PO (17:39)
[2023-11-16] MEDS: Ascorbic Acid 500 MG Tablet 1000 MG PO (17:40)
--- NOTE | 2023-11-16 17:55 | NURSING ---
Dr Maguire spoke with daughter who is in pt's room.
[2023-11-16] MEDS: LORazepam 2 MG/ML Syringe 0.5 MG IV (18:57)
[2023-11-16] MEDS: morphine (oral solution) 10MG/0.5ML Syringe 10 MG SL/PO (20:33)
[2023-11-17] VITALS (11 sets, daily range): BP systolic 101–144; BP diastolic 50–90; PULSE 89–130; RESP 20–26; TEMP 36–36.6; O2SAT 92–100; BMI 14.7
[2023-11-17] MEDS: 0.9% Normal Saline (1000mL) 1,000 ML 70 ML IV ×2 (00:45→15:10)
[2023-11-17] MEDS: LORazepam 2 MG/ML Syringe 0.5 MG IV ×4 (02:49→18:11)
[2023-11-17] MEDS: Menthol/Lanolin/Calamine/Znox 113 GM Tube 1 APPLIC TOPICAL ×3 (05:28→21:24)
--- NOTE | 2023-11-17 07:34 | PN.HOSP_ITS ---
Reason for Visit Reason for Visit: Diagnoses Malignant neoplasm of unspecified part of unspecified bronchus or lung (11/13/23) Malignant neoplasm of unspecified part of left bronchus or lung (11/13/23) Hypo-osmolality and hyponatremia (11/13/23) Unspecified toxic encephalopathy (11/13/23) Acute bronchitis, unspecified (11/13/23) Unspecified chronic bronchitis (11/13/23) Cachexia (11/13/23) Other nonspecific abnormal finding of lung field (11/13/23) Abnormal findings on diagnostic imaging of other specified body structures (11/13/23) Subjective Subjective Started on Airvo. Objective Data Objective Data Vital Signs: Vital Signs Temp Pulse Resp BP Pulse Ox O2 Del Method O2 Flow Rate 36.3 C L 94 22 H 139/70 H 97 Airvo 15 11/17/23 05:27 11/17/23 05:27 11/17/23 05:27 11/17/23 05:27 11/17/23 05:27 11/17/23 05:27 11/16/23 20:04 FiO2 65 11/17/23 05:07 Oxygen Flow Rate (L/min) 15 Oxygen Delivery Method Airvo Weight: 45.3 kg Body Mass Index (BMI) 14.7 Intake & Output: Intake and Output for Last 24 Hours 11/15/23 11/16/23 11/17/23 23:59 23:59 23:59 Intake Total 2565.83 / 2615.83 1567.33 / 1567.33 818 / 818 Output Total 1050 / 1450 2950 / 2950 Balance 1515.83 / 1165.83 -1382.67 / -1382.67 818 / 818 Medical Nutrition Assessment Dietitian: Malnutrition Criteria Met Start: 11/14/23 10:35 Freq: Status: Active Protocol: Document 11/14/23 10:35 VIELKA (Rec: 11/14/23 10:35 VIELKA [id number]) Nutrition Malnutrition Evidence of Malnutrition Exists Yes Malnutrition (severe): Chronic Evidenced By Suboptimal Energy Intake ( Severe),Weight Loss (Severe), Physical Changes (Severe) Clinical Problem Chronic Disease or Condition Related Malnutrition Etiology related to metastatic lung cancer and inadequate energy intake Signs/Symptoms as evidenced by po intake meeting <75% of estimated nutritional needs and sig unintended wt loss of 7.3% x 1 month - obvious fat loss/ muscle depletion throughout body and BMI 14.7. Status Active Problem Recommendation Dietitian Recommendations/Changes Due to signs and symptoms of malnutrition, will liberalize diet to Regular with fortified foods as able Rec continue ensure compact 4x /day w/ medpass as ordered Will provide magic cup w/ lunch and dinner for increased nutrition if consumed Lab / Micro Data 11/16/23 05:10 11/16/23 05:10 Labs: Laboratory Results - last 24 hr 11/16/23 05:10: Differential Comment COMMENT, Anisocytosis 1+ Micro: Microbiology 11/13/23 19:26 Blood Culture (Wb) - Anticubital Right Blood Culture - Preliminary No growth in 48 hours. 11/13/23 18:31 Blood Culture (Wb) - Anticubital Right Blood Culture - Preliminary No growth in 48 hours. 11/13/23 19:16 Urine Catheter - Elena Urine Culture - Final Enterococcus faecalis 11/13/23 23:50 Urine Catheter - Elena Legionella Antigen - Final 11/13/23 23:50 Urine Catheter - Elena Streptococcus pneumoniae Antigen (M - Final Physical Exam Const alert and no apparent distress HEENT head/scalp atraumatic and moist oral mucous membranes Resp normal respiratory effort, no retractions, no use of accessory muscles and clear to auscultation bilaterally Cardio regular rate, regular rhythm, S1 normal heart sound and S2 normal heart sound GI normal to inspection, nondistended, normoactive bowel sounds, soft to palpation, non-tender and non-distended Extremity normal to inspection and full ROM Neuro Sensorium / Orientation: awake and alert Assessment & Plan Assessment/Plan (1) Infiltrate of lower lobe of left lung present on imaging study: (2) Acute exacerbation of chronic bronchitis: (3) Squamous cell carcinoma of lung: QUALIFIERS: Laterality: left Qualified Code(s): C34.92 - Malignant neoplasm of unspecified part of left bronchus or lung (4) Cancer cachexia: (5) Hyponatremia: (6) Toxic encephalopathy: QUALIFIERS: Toxic encephalopathy cause: unspecified toxin Q ualified Code(s): G92.9 - Unspecified toxic encephalopathy PLAN: Plan Acute Hypoxic respiratory failure * 2/2 lung CA. Pneumonia. * On Airvo * Supportive mgmt. UTI * enterococcus faecalis (VSE) * change abx to ciprofloxacin. LLL squamous cell carcinoma * follow up with Dr. Chavez as outpt. * confirmed on Biopsy on 10/18 * PET on 11/09: 1. ABNORMAL EXAMINATION INDICATIVE OF MALIGNANT VIABLE NEOPLASM. 2. Increased glucose concentration noted in the right lower lung field, right lower lobe fulfills quantitative criteria for viable neoplasm.3. Enhanced tracer uptake noted in the subcarinal mediastinum to the right of the midline fulfills quantitative criteria for malignant transformation. 4. The right hemithorax pleural effusion does not fulfill quantitative criteria for malignant transformation. * GI consulted plan for EGD. Unable to be performed on 11/16 due to hypoxia. * Per his niece, was noted to have a lung mass 2 years ago, but he never sought treatment. Toxic/metabolic encephalopathy * From illicit substances and prescribed narcotics, hypercalcemia * Rx screen + opiates, amphetamines, MDMA and cannabinoids. * Worsening during the day on 11/16 Hypercalcemia * likely from malignancy * improved with IVF * monitor Severe protein calorie malnutrition * supplements * / underlying malignancy Acute COPD exacerbation * complicated by lung CA * improving * change methylpred to prednisone Alcohol withdrawal * phenobarbital. thiamine and folate. Debility * profoundly weak given his underlying medical conditions. * Declined by [facility]. Additional referrals made. * Medically stable for discharge Chronic conditions: * Hyponatremia: stable. 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 6 hours prn * PVD; s/p Right femoral tibial bypass (2019) with subsequent occlusion with subsequent RLE AKA; with fasciotomy (2019) - Noted. Patient may need ECF if he cannot care for himself at home as this further complicates his case and may hamper his recovery in addition to his ability to live independently. Finally, we will consult PT/OT and case management to see this patient on rounds in the a.m. for further recommendations with help appreciated in advance for * Essential hypertension - Resume home regimen as previous. * Hyperlipidemia - Continue statin. * History of recurrent DVT DVT prophylaxis: enoxaparin Disposition: DW niece and dtr on 11/15, I recommended hospice. They were agreeable. Hospice to see today. Charges/Coding Visit Charges Inpatient E&M: 70661 Subs Hosp L2
--- NOTE | 2023-11-17 07:41 | CASEMGMT ---
[place] has declined patient. SW will talk with patient's niece regarding responses. Juana Tse HOOP PUNCH AND COILER OPERATOR HELPER OLIVER
[2023-11-17 08:03] LABS: AST(SGOT) 24 U/L (15-37); Alanine Aminotransfer ALT/SGPT 18 U/L (16-61); Albumin, Serum 2.3 g/dL (3.2-5.0); Alkaline Phosphatase 96 U/L (45-117); Bilirubin, Direct 0.12 mg/dL (0.00-0.30); Globulin 4.4 g/dL (2.2-4.2); Protein, Total 6.7 g/dL (6.4-8.2)
--- NOTE | 2023-11-17 09:10 | CASEMGMT ---
Per physician patient's family would like to talk with Hospice. SW called patient's daughter Kasey and left her a voice mail requesting a return call. Juana BOYD
[2023-11-17] MEDS: Ciprofloxacin 400 MG/200 ML BAG 200 MG IV ×2 (09:11→21:35)
--- NOTE | 2023-11-17 09:26 | CASEMGMT ---
SW attempted to call patient's niece Roxana. There was no answer. RG will try back. Juana Tse SWITCHER OLIVER
--- NOTE | 2023-11-17 10:41 | CASEMGMT ---
RG called patient's niece Roxana and left her a voice mail requesting a return call. Juana Tse PRICING DIRECTORSilverio BOYD
[2023-11-17 11:09] LABS: GGTP 17 IU/L (0-65)
--- NOTE | 2023-11-17 13:09 | CASEMGMT ---
Patient's daughter Kasey called RG back. RG introduced self and role at [facility]. RG confirmed they would like to talk with Hospice. RG explained how the process works. Kasey said she is okay with the local hospice and would like patient to go to the inpatient unit. RG told Kasey someone from Hospice will call her to set up a meeting. RG also told Kasey the number might come up [place], [place]. RG called [facility] and made a referral. RG also faxed information. Juana BOYD
--- NOTE | 2023-11-17 13:44 | CASEMGMT ---
RG received a call from Aishwarya with Hospice and they left a message for patient's daughter Kasey. RG then received a call from patient's niece Roxana. GR explained the hospice process and that currently we are just waiting on Kasey to call Hospice back to set up appt. Juana Tse ZINC PLATE CUTTER OLIVER
--- NOTE | 2023-11-17 15:50 | PCM.DC ---
Discharge Instructions Diet Discharge Diet: - (comfort feeds with small bites and direct observation. ) Dressing / Incision Call your doctor if your incision/area has: Continuous Slow Oozing Follow Up Care Test Results: Test results from this visit will be discussed in further detail at your follow-up appointment, if applicable. Discharge Plan Admission Admit Date/Time: 11/13/23 22:10 Attending Provider: Long Maguire Primary Care Provider: Tate Strange Consulting Providers: Gunnar Chavez; Smith Figueroa; Dejuan Sherman; Smith Treviño; Zonia Lehman; Elizabeth Garibay; Spring Dsouza TAPE KELLER OPERATOR Discharge Orders/Prescriptions Prescriptions: New acetaminophen 325 mg Tablet 650 mg PO Q4H PRN PRN (Reason: pain and fever) Qty: 0 0RF nicotine 14 mg/24 hr Patch 24 Hour 14 mg transdermal DAILY Qty: 0 0RF albuterol sulfate 2.5 mg /3 mL (0.083 %) Solution For Nebulization 2.5 mg inhalation Q2H PRN PRN (Reason: SOB &/OR WHEEZING) Qty: 0 0RF morphine concentrate 10 mg/0.5 mL Syringe 10 mg PO/SL Q2H PRN PRN (Reason: Pain Score 6-10) Qty: 0 0RF Discontinued folic acid 1 mg tablet 1 mg PO DAILY Qty: 90 1RF (DME) Handicap Placard See Rx Instructions .ROUTE .MEDSUPPLY Qty: 1 0RF Rx Instructions: As directed, length of time 3 years ferrous gluconate 236 mg (27 mg iron) tablet 236 mg PO DAILY amlodipine [Norvasc] 5 mg tablet 5 mg PO DAILY methotrexate sodium 2.5 mg tablet 2.5 mg PO .COMPLEX Qty: 32 1RF Rx Instructions: Take 4 tablets on Thursday and 4 tablets on Thursday. For a total 8 pills every weekend. pantoprazole 40 mg tablet,delayed release (DR/EC) 40 mg PO QAM Qty: 90 1RF oxycodone-acetaminophen [Percocet] 5-325 mg tablet 1 tab PO Q6H PRN (Reason: pain) 30 Days Qty: 60 0RF Referrals / Follow Up: Tate Strange MD [Primary Care Provider] - Disposition Disposition (needs filled in before D/C Order can be placed): Hospice in Medical Facility
[2023-11-17] MEDS: morphine (oral solution) 10MG/0.5ML Syringe 10 MG SL/PO (16:28)
[2023-11-17] MEDS: Atropine Sulfate 1% 2 ml Bottle 2 DRP PO (18:12)
--- NOTE | 2023-11-17 18:47 | NURSING ---
This RN updated the pt's daughter, Dru via phone. Dru called to get update. This RN let her know that there has been a decline in pt's status since yesterday and pt has been very drowsy and disoriented-unable to eat and take pills safely. Pt has appeared agitated and attempts to take oxygen off. Trying to keep him comfortable with iv ativan and SL morphine. Dru thanks this RN for update and denies further questions. States she will not be in tonight. This RN offered to ask making exception to visiting hours and dru denies being able to come in even if hours are extended.
--- NOTE | 2023-11-17 19:50 | PN.GI_ITS ---
Subjective Subjective Patient has still been hypoxic along with tachycardic and mildly hypotensive. Objective Data Objective Data Vital Signs: Vital Signs Temp Pulse Resp BP Pulse Ox O2 Del Method O2 Flow Rate 97.9 F 130 H 22 H 119/50 L 95 Airvo 50 11/17/23 18:06 11/17/23 18:06 11/17/23 18:06 11/17/23 18:06 11/17/23 18:06 11/17/23 18:06 11/17/23 06:54 FiO2 90 11/17/23 06:54 Oxygen Flow Rate (L/min) 50 Oxygen Delivery Method Airvo Weight: 99 lb 13.91 oz Body Mass Index (BMI) 14.7 Intake & Output: Intake and Output for Last 24 Hours 11/15/23 11/16/23 11/17/23 23:59 23:59 23:59 Intake Total 2565.83 / 2615.83 1567.33 / 1567.33 2017 Output Total 1050 / 1450 2950 / 2950 200 / 200 Balance 1515.83 / 1165.83 -1382.67 / -1382.67 1818 / 1818 Medical Nutrition Assessment Dietitian: Malnutrition Criteria Met Start: 11/14/23 10:35 Freq: Status: Active Protocol: Document 11/14/23 10:35 VIELKA (Rec: 11/14/23 10:35 VIELKA [id number]) Nutrition Malnutrition Evidence of Malnutrition Exists Yes Malnutrition (severe): Chronic Evidenced By Suboptimal Energy Intake ( Severe),Weight Loss (Severe), Physical Changes (Severe) Clinical Problem Chronic Disease or Condition Related Malnutrition Etiology related to metastatic lung cancer and inadequate energy intake Signs/Symptoms as evidenced by po intake meeting <75% of estimated nutritional needs and sig unintended wt loss of 7.3% x 1 month - obvious fat loss/ muscle depletion throughout body and BMI 14.7. Status Active Problem Recommendation Dietitian Recommendations/Changes Due to signs and symptoms of malnutrition, will liberalize diet to Regular with fortified foods as able Rec continue ensure compact 4x /day w/ medpass as ordered Will provide magic cup w/ lunch and dinner for increased nutrition if consumed Lab / Micro Data 11/16/23 05:10 11/16/23 05:10 Labs: Laboratory Results - last 24 hr 11/15/23 05:10: GGT 17 11/17/23 07:37: Total Bilirubin 0.20, Direct Bilirubin 0.12, AST 24, ALT 18, Alkaline Phosphatase 96, Total Protein 6.7, Albumin 2.3 L, Globulin 4.4 H Micro: Microbiology 11/13/23 19:26 Blood Culture (Wb) - Anticubital Right Blood Culture - Preliminary No growth in 48 hours. 11/13/23 18:31 Blood Culture (Wb) - Anticubital Right Blood Culture - Preliminary No growth in 48 hours. 11/13/23 19:16 Urine Catheter - Elena Urine Culture - Final Enterococcus faecalis 11/13/23 23:50 Urine Catheter - Elena Legionella Antigen - Final 11/13/23 23:50 Urine Catheter - Elena Streptococcus pneumoniae Antigen (M - Final Physical Exam Const alert and no apparent distress HEENT head/scalp atraumatic and moist oral mucous membranes Resp normal respiratory effort, no retractions, no use of accessory muscles and clear to auscultation bilaterally Cardio regular rate, regular rhythm, S1 normal heart sound and S2 normal heart sound GI normal to inspection, nondistended, normoactive bowel sounds, soft to palpation, non-tender and non-distended Extremity normal to inspection and full ROM Neuro Sensorium / Orientation: awake and alert Assessment & Plan Assessment/Plan (1) Infiltrate of lower lobe of left lung present on imaging study: (2) Acute exacerbation of chronic bronchitis: (3) Squamous cell carcinoma of lung: QUALIFIERS: Laterality: left Qualified Code(s): C34.92 - Malignant neoplasm of unspecified part of left bronchus or lung (4) Cancer cachexia: (5) Hyponatremia: (6) Toxic encephalopathy: QUALIFIERS: Toxic encephalopathy cause: unspecified toxin Q ualified Code(s): G92.9 - Unspecified toxic encephalopathy PLAN: Plan 68-year-old gentleman with history of untreated squamous cell carcinoma left lower lobe, complicated with left pleural effusion was brought to ED for altered mental status and lethargy. His imaging on PET scan had showed possible lesion in the esophagus. Esophageal lesion-differential diagnosis does include squamous cell carcinoma of the esophagus, adenocarcinoma of the esophagus, esophageal stricture, and of thickening or regular Kadi esophagitis, erosive esophagitis. He should undergo an upper endoscopy to evaluate his upper GI tract. 11/17/2023-patient is still not safe enough in order to perform upper endoscopy. He still continues to lose a lot of weight. He is considering hospice and/or palliative care. I will sign off at this time. Please reconsult if patient needs gastroenterology services. Charges/Coding Visit Charges Inpatient E&M: 91203 Subs Hosp L3
[2023-11-18] VITALS (10 sets, daily range): BP systolic 109–134; BP diastolic 52–76; PULSE 102–124; RESP 20–38; TEMP 36.2–37.1; O2SAT 93–99; BMI 14.6
[2023-11-18] MEDS: Menthol/Lanolin/Calamine/Znox 113 GM Tube 1 APPLIC TOPICAL ×2 (05:35→16:24)
[2023-11-18] MEDS: 0.9% Normal Saline (1000mL) 1,000 ML 70 ML IV (05:44)
--- NOTE | 2023-11-18 07:36 | CASEMGMT ---
Addendum entered by Juana Tse 11/18/23 10:00: RG notified RN, charge hand, and physician of Hospice meeting time. Juana BOYD Original Note: RG received a voice mail from Aishwarya with [facility]. Aishwarya said they will be meeting with patient's daughter Kasey 11-17 at . Kasey had appointments yesterday evening so she could not meet yesterday. Juana BOYD
--- NOTE | 2023-11-18 08:31 | PCM.PN.HOSP ---
Reason for Visit Reason for Visit: Diagnoses Malignant neoplasm of unspecified part of unspecified bronchus or lung (11/13/23) Malignant neoplasm of unspecified part of left bronchus or lung (11/13/23) Hypo-osmolality and hyponatremia (11/13/23) Unspecified toxic encephalopathy (11/13/23) Acute bronchitis, unspecified (11/13/23) Unspecified chronic bronchitis (11/13/23) Cachexia (11/13/23) Other nonspecific abnormal finding of lung field (11/13/23) Abnormal findings on diagnostic imaging of other specified body structures (11/13/23) Subjective Subjective Still confused. Objective Data Objective Data Vital Signs: Vital Signs Temp Pulse Resp BP Pulse Ox O2 Del Method O2 Flow Rate 36.3 C L 108 H 22 H 110/76 94 Nasal Cannula 5 11/18/23 05:25 11/18/23 05:25 11/18/23 05:25 11/18/23 05:25 11/18/23 07:44 11/18/23 07:44 11/18/23 07:44 FiO2 40 11/18/23 01:35 Oxygen Flow Rate (L/min) 5 Oxygen Delivery Method Nasal Cannula Weight: 45.1 kg Body Mass Index (BMI) 14.6 Intake & Output: Intake and Output for Last 24 Hours 11/16/23 11/17/23 11/18/23 23:59 23:59 23:59 Intake Total 1567.33 / 1567.33 2218 / 2218 1000 / 1000 Output Total 2950 / 2950 200 / 200 300 / 300 Balance -1382.67 / -1382.67 2017 700 / 700 Medical Nutrition Assessment Dietitian: Malnutrition Criteria Met Start: 11/14/23 10:35 Freq: Status: Active Protocol: Document 11/14/23 10:35 VIELKA (Rec: 11/14/23 10:35 VIELKA [id number]) Nutrition Malnutrition Evidence of Malnutrition Exists Yes Malnutrition (severe): Chronic Evidenced By Suboptimal Energy Intake ( Severe),Weight Loss (Severe), Physical Changes (Severe) Clinical Problem Chronic Disease or Condition Related Malnutrition Etiology related to metastatic lung cancer and inadequate energy intake Signs/Symptoms as evidenced by po intake meeting <75% of estimated nutritional needs and sig unintended wt loss of 7.3% x 1 month - obvious fat loss/ muscle depletion throughout body and BMI 14.7. Status Active Problem Recommendation Dietitian Recommendations/Changes Due to signs and symptoms of malnutrition, will liberalize diet to Regular with fortified foods as able Rec continue ensure compact 4x /day w/ medpass as ordered Will provide magic cup w/ lunch and dinner for increased nutrition if consumed Lab / Micro Data 11/16/23 05:10 11/16/23 05:10 Labs: Laboratory Results - last 24 hr 11/15/23 05:10: GGT 17 Micro: Microbiology 11/13/23 19:26 Blood Culture (Wb) - Anticubital Right Blood Culture - Preliminary No growth in 48 hours. 11/13/23 18:31 Blood Culture (Wb) - Anticubital Right Blood Culture - Preliminary No growth in 48 hours. 11/13/23 19:16 Urine Catheter - Elena Urine Culture - Final Enterococcus faecalis 11/13/23 23:50 Urine Catheter - Elena Legionella Antigen - Final 11/13/23 23:50 Urine Catheter - Elena Streptococcus pneumoniae Antigen (M - Final Physical Exam Const no apparent distress Orientation / Consciousness: confused HEENT head/scalp atraumatic and moist oral mucous membranes Resp normal respiratory effort and no retractions Resp Narrative: coarse breath sounds. Cardio regular rate, regular rhythm and S1 normal heart sound Extremity normal to inspection and full ROM Neuro Sensorium / Orientation: awake and alert Assessment & Plan Assessment/Plan (1) Infiltrate of lower lobe of left lung present on imaging study: (2) Acute exacerbation of chronic bronchitis: (3) Squamous cell carcinoma of lung: QUALIFIERS: Laterality: left Qualified Code(s): C34.92 - Malignant neoplasm of unspecified part of left bronchus or lung (4) Cancer cachexia: (5) Hyponatremia: (6) Toxic encephalopathy: QUALIFIERS: Toxic encephalopathy cause: unspecified toxin Qualified Code(s): G92.9 - Unspecified toxic encephalopathy PLAN: Plan Acute Hypoxic respiratory failure 2/2 lung CA. Pneumonia. On Airvo Supportive mgmt. UTI enterococcus faecalis (VSE) change abx to ciprofloxacin. LLL squamous cell carcinoma follow up with Dr. Chavez as outpt. confirmed on Biopsy on 10/18 PET on 11/09: 1. ABNORMAL EXAMINATION INDICATIVE OF MALIGNANT VIABLE NEOPLASM. 2. Increased glucose concentration noted in the right lower lung field, right lower lobe fulfills quantitative criteria for viable neoplasm.3. Enhanced tracer uptake noted in the subcarinal mediastinum to the right of the midline fulfills quantitative criteria for malignant transformation. 4. The right hemithorax pleural effusion does not fulfill quantitative criteria for malignant transformation. GI consulted plan for EGD. Unable to be performed on 11/16 due to hypoxia. Per his niece, was noted to have a lung mass 2 years ago, but he never sought treatment. Toxic/metabolic encephalopathy From illicit substances and prescribed narcotics, hypercalcemia Rx screen + opiates, amphetamines, MDMA and cannabinoids. Worsening during the day on 11/16 Hypercalcemia likely from malignancy improved with IVF monitor Severe protein calorie malnutrition supplements 2/2 underlying malignancy Acute COPD exacerbation complicated by lung CA improving change methylpred to prednisone Alcohol withdrawal phenobarbital. thiamine and folate. Debility profoundly weak given his underlying medical conditions. Declined by [facility]. Additional referrals made. Medically stable for discharge Chronic conditions: Hyponatremia: stable. 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 6 hours prn PVD; s/p Right femoral tibial bypass (2019) with subsequent occlusion with subsequent RLE AKA; with fasciotomy (2019) - Noted. Patient may need ECF if he cannot care for himself at home as this further complicates his case and may hamper his recovery in addition to his ability to live independently. Finally, we will consult PT/OT and case management to see this patient on rounds in the a.m. for further recommendations with help appreciated in advance for Essential hypertension - Resume home regimen as previous. Hyperlipidemia - Continue statin. History of recurrent DVT DVT prophylaxis: enoxaparin Disposition: DW niece and dtr on 11/15, I recommended hospice. They were agreeable. Hospice meeting with family today at 1600. Charges/Coding Visit Charges Inpatient E&M: 30281 Subs Hosp L2
[2023-11-18] MEDS: Ciprofloxacin 400 MG/200 ML BAG 200 MG IV (11:07)
[2023-11-18] MEDS: Enoxaparin 40 MG/0.4 ML Syringe SC (11:08)
[2023-11-18] MEDS: LORazepam 2 MG/ML Syringe 0.5 MG IV ×2 (12:26→16:23)
--- NOTE | 2023-11-18 15:22 | EKG12_ITS ---
Test Reason : afib Blood Pressure : / mmHG Vent. Rate : 129 BPM Atrial Rate : 129 BPM P-R Int : 118 ms QRS Dur : 084 ms QT Int : 314 ms P-R-T Axes : 088 036 095 degrees QTc Int : 460 ms Sinus tachycardia with Premature atrial complexes Otherwise normal ECG When compared with ECG of 13-NOV-2023 18:32, Premature atrial complexes are now Present Vent. rate has increased BY 44 BPM Confirmed by Jaskaran Burns ([id number]), news assignment editor TISH STONE ([id number]) on 11/20/2023 6:21:16 AM Referred By: Confirmed By:Jaskaran Burns
--- NOTE | 2023-11-18 15:28 | CHAPLAIN ---
Type of Pastoral Visit ___ Initial Visit _x__ Follow-up Visit ___ On-call Visit ___ General Patient Visit ___ Spiritual Assessment ___ Family Conference ___ Bereavement ___ Rapid Response ___ Code Blue ___ Other (describe below) Pastoral Care Referral From _x__ Patient ___ Family ___ Nurse ___ Physician ___ Precision Crop Manager ___ Craft Coordinator ___ Other (describe below) Sacrament/Intervention _x__ Active listening ___ Anointing ___ Druze ___ Bereavement ___ Communion ___ Sanaz exploration ___ ___ Life review _x__ Prayer ___ Reconciliation ___ Sacrament of Sick _x__ Supportive presence ___ Wedding ___ Other (describe below) Pastoral Comments follow up visit to this patient as nursing staff expressed concern about his life and health; RN was with him in the room at this time but left soon with invitation to speak to patient; reminded pt of who this was and why available for his support; pt states that he is fine and that he wants to go home; spoke to pt that he was in the hospital and that everyone was helping him to get better; pt asked why this was and response given was because you are sick; pt stated that he didn't believe that he was sick and that he wanted to go home; pt was asked if he had any worries or concerns and his response was Yes, but I just want to go home; sat at bedside quietly for a time; asked pt what he might want to help him while in the hospital and pt did not have an answer; asked pt if he would like to have a prayer spoken and he said yes; prayer given; pt asked if he had his glasses in the room or if they were at home; glasses were not found in the room;
[2023-11-18] MEDS: 0.9% Saline Lock 10 ML Syringe IV (16:24)
--- NOTE | 2023-11-18 17:07 | DS.PCM_ITS ---
Providers Date of Admission: 11/13/23 Primary Care Physician: Dr. Tate Strange MD Consultations 11/14/23 04:54 Consult: Oncology/Hematology Routine Consulting Provider: Gunnar Chavez Reason for Consult: Metastatic lung cancer with cancer cachexia and polysubstance abuse. EMERGENT Consult: No Notified: Yes Date Notified: 11/14/23 Time Notified: 06:23 Method of Notification: phone 11/14/23 14:24 Consult: Gastroenterology Routine Consulting Provider: [facility] Reason for Consult: Esopahgeal opacity on PET scan, LLL Lung cancer EMERGENT Consult: No MD Notified: Yes Date Notified: 11/14/23 Time Notified: 14:25 Method of Notification: Text 11/16/23 17:32 Consult: Hospice / Palliative Care Routine Consulting Provider: [facility] Reason for Consult: lung cancer EMERGENT Consult: No Notified: Yes Date Notified: 11/16/23 Time Notified: 17:32 Method of Notification: 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 [employer] 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 Reason For Visit: LLL MASS WITH SUSPECTED POSTOBSTRUCTIVE PNA WITH Diagnosis Discharge Diagnosis (1) Infiltrate of lower lobe of left lung present on imaging study: Status: Acute Code(s): R91.8 - Other nonspecific abnormal finding of lung field (2) Acute exacerbation of chronic bronchitis: Status: Chronic Code(s): J20.9 - Acute bronchitis, unspecified; J42 - Unspecified chronic bronchitis (3) Squamous cell carcinoma of lung: Status: Acute Code(s): C34.90 - Malignant neoplasm of unspecified part of unspecified bronchus or lung Qualifiers: Laterality: left Qualified Code(s): C34.92 - Malignant neoplasm of unspecified part of left bronchus or lung (4) Cancer cachexia: Status: Acute Code(s): R64 - Cachexia (5) Hyponatremia: Status: Acute Code(s): E87.1 - Hypo-osmolality and hyponatremia (6) Toxic encephalopathy: Status: Acute Code(s): G92.9 - Unspecified toxic encephalopathy Qualifiers: Toxic encephalopathy cause: unspecified toxin Qualified Code(s): G92.9 - Unspecified toxic encephalopathy Plan Acute Hypoxic respiratory failure * 2/2 lung CA. Pneumonia. * On Airvo * Supportive mgmt. UTI * enterococcus faecalis (VSE) * change abx to ciprofloxacin. LLL squamous cell carcinoma * follow up with Dr. Chavez as outpt. * confirmed on Biopsy on 10/18 * PET on 11/09: 1. ABNORMAL EXAMINATION INDICATIVE OF MALIGNANT VIABLE NEOPLASM. 2. Increased glucose concentration noted in the right lower lung field, right lower lobe fulfills quantitative criteria for viable neoplasm.3. Enhanced tracer uptake noted in the subcarinal mediastinum to the right of the midline fulfills quantitative criteria for malignant transformation. 4. The right hemithorax pleural effusion does not fulfill quantitative criteria for malignant transformation. * GI consulted plan for EGD. Unable to be performed on 11/16 due to hypoxia. * Per his niece, was noted to have a lung mass 2 years ago, but he never sought treatment. Toxic/metabolic encephalopathy * From illicit substances and prescribed narcotics, hypercalcemia * Rx screen + opiates, amphetamines, MDMA and cannabinoids. * Worsening during the day on 11/16 Hypercalcemia * likely from malignancy * improved with IVF * monitor Severe protein calorie malnutrition * supplements * / underlying malignancy Acute COPD exacerbation * complicated by lung CA * improving * change methylpred to prednisone Alcohol withdrawal * phenobarbital. thiamine and folate. Debility * profoundly weak given his underlying medical conditions. * Declined by CC. Additional referrals made. * Medically stable for discharge Chronic conditions: * Hyponatremia: stable. 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 6 hours prn * PVD; s/p Right femoral tibial bypass (2019) with subsequent occlusion with subsequent RLE AKA; with fasciotomy (2019) - Noted. Patient may need ECF if he cannot care for himself at home as this further complicates his case and may hamper his recovery in addition to his ability to live independently. Finally, we will consult PT/OT and case management to see this patient on rounds in the a.m. for further recommendations with help appreciated in advance for * Essential hypertension - Resume home regimen as previous. * Hyperlipidemia - Continue statin. * History of recurrent DVT DVT prophylaxis: enoxaparin Disposition: DW niece and dtr on 11/15, I recommended hospice. They were agreeable. Hospice meeting with family today at 1600. Medications at Discharge Home Medications acetaminophen 325 mg tablet 650 mg (2 x 325 mg) PO Q4H PRN PRN pain and fever #0 tabs 11/17/23 albuterol sulfate 2.5 mg/3 mL (0.083 %) solution for nebulization 2.5 mg (3 mL) inhalation Q2H PRN PRN SOB &/OR WHEEZING #0 mL 11/17/23 morphine concentrate 10 mg/0.5 mL oral syringe (FOR ORAL USE ONLY) 10 mg (0.5 mL) PO/SL Q2H PRN PRN Pain Score 6-10 #0 ea 11/17/23 nicotine 14 mg/24 hr daily transdermal patch 14 mg transdermal DAILY #0 ea 11/17/23 Hospital Course Operations None Procedures None Summary of Care Provided Minutes Spent on Discharge: 40 Hospital Course: Patient presents with shortness of breath. He had pneumonia but patient also had a very large left lower lobe mass. Approximate 2 years ago, patient was noted to have mass but the patient did not seek attention for it at that time. He did have a biopsy at some point that did show squamous cell carcinoma. Patient was here he was started on antibiotics but his course overall deteriorated. Discussed with the patient's daughter and niece and they are in agreement to proceeding with hospice. Hospice try to get a hold of the daughter on the night but were finally able to meet with them on the . Patient CODE STATUS was previously changed from full to DNR Comfort Care arrest no intubation to now DNR comfort care. His prognosis is poor likely days to weeks. He will be discharged to the inpatient hospice unit. Medical Records Data Medical Nutrition Assessment Dietitian: Malnutrition Criteria Met Start: 11/14/23 10:35 Freq: Status: Active Protocol: Document 11/14/23 10:35 VIELKA (Rec: 11/14/23 10:35 VIELKA [id number]) Nutrition Malnutrition Evidence of Malnutrition Exists Yes Malnutrition (severe): Chronic Evidenced By Suboptimal Energy Intake ( Severe),Weight Loss (Severe), Physical Changes (Severe) Clinical Problem Chronic Disease or Condition Related Malnutrition Etiology related to metastatic lung cancer and inadequate energy intake Signs/Symptoms as evidenced by po intake meeting <75% of estimated nutritional needs and sig unintended wt loss of 7.3% x 1 month - obvious fat loss/ muscle depletion throughout body and BMI 14.7. Status Active Problem Recommendation Dietitian Recommendations/Changes Due to signs and symptoms of malnutrition, will liberalize diet to Regular with fortified foods as able Rec continue ensure compact 4x /day w/ medpass as ordered Will provide magic cup w/ lunch and dinner for increased nutrition if consumed Weight / BMI Weight Weight: 45.1 kg Body Mass Index (BMI) 14.6 ABG / Lab / Microbiology Data 11/16/23 05:10 11/16/23 05:10 Microbiology: Microbiology 11/13/23 19:26 Blood Culture (Wb) - Anticubital Right Blood Culture - Preliminary No growth in 48 hours. 11/13/23 18:31 Blood Culture (Wb) - Anticubital Right Blood Culture - Preliminary No growth in 48 hours. 11/13/23 19:16 Urine Catheter - Elena Urine Culture - Final Enterococcus faecalis 11/13/23 23:50 Urine Catheter - Elena Legionella Antigen - Final 11/13/23 23:50 Urine Catheter - Elena Streptococcus pneumoniae Antigen (M - Final D/C Instructions Discharge Diet: - (comfort feeds with small bites and direct observation. ) Call your doctor if your incision/area has: Continuous Slow Oozing Meaningful Use Info Meaningful Use Meaningful Use Diagnoses (Choose all that apply): None applicable Ischemic Stroke Statin Dosing Therapy Reference: STATIN DOSE THERAPY REFERENCE: * Patients > 75 years receive moderate or high dose statin therapy. * Patients 75 years or YOUNGER should receive HIGH intensity statin dose unless contraindicated. You will be required to document reason for non-treatment if statin daily dose does not meet guidelines. HIGH DOSE STATIN THERAPY DAILY Atorvastatin > than or = to 40 mg Rosuvastatin > than or = to 20 mg Amlodipine + Atorvastatin > than or = to 2.5/40 mg Ezetimibe + Simvastatin 10/80 mg Simvastatin 80mg Discharge Plan Admission Admit Date/Time: 11/13/23 22:10 Attending Provider: Long Maguire Primary Care Provider: Tate Strange Consulting Providers: Gunnar Chavez; Smith Figueroa; Dejuan Sherman; Smith Treviño; Zonia Lehman; Elizabeth Garibay; Spring Dsouza STORE LOSS PREVENTION MANAGER Discharge Orders/Prescriptions Prescriptions: New acetaminophen 325 mg Tablet 650 mg PO Q4H PRN PRN (Reason: pain and fever) Qty: 0 0RF nicotine 14 mg/24 hr Patch 24 Hour 14 mg transdermal DAILY Qty: 0 0RF albuterol sulfate 2.5 mg /3 mL (0.083 %) Solution For Nebulization 2.5 mg inhalation Q2H PRN PRN (Reason: SOB &/OR WHEEZING) Qty: 0 0RF morphine concentrate 10 mg/0.5 mL Syringe 10 mg PO/SL Q2H PRN PRN (Reason: Pain Score 6-10) Qty: 0 0RF Discontinued folic acid 1 mg tablet 1 mg PO DAILY Qty: 90 1RF (DME) Handicap Placard See Rx Instructions .ROUTE .MEDSUPPLY Qty: 1 0RF Rx Instructions: As directed, length of time 3 years ferrous gluconate 236 mg (27 mg iron) tablet 236 mg PO DAILY amlodipine [Norvasc] 5 mg tablet 5 mg PO DAILY methotrexate sodium 2.5 mg tablet 2.5 mg PO .COMPLEX Qty: 32 1RF Rx Instructions: Take 4 tablets on Thursday and 4 tablets on Thursday. For a total 8 pills every . pantoprazole 40 mg tablet,delayed release (DR/EC) 40 mg PO QAM Qty: 90 1RF oxycodone-acetaminophen [Percocet] 5-325 mg tablet 1 tab PO Q6H PRN (Reason: pain) 30 Days Qty: 60 0RF Referrals / Follow Up: Tate Strange MD [Primary Care Provider] - Disposition Disposition (needs filled in before D/C Order can be placed): Hospice in Medical Facility Charges/Coding Visit Charges Inpatient E&M: 24307 Disch Hosp >30min
[2023-11-18] MEDS: morphine (oral solution) 10MG/0.5ML Syringe 10 MG SL/PO (17:33)
[2023-11-18] MEDS: Atropine Sulfate 1% 2 ml Bottle 2 DRP PO (17:36)
--- NOTE | 2023-11-18 18:26 | NURSING ---
[facility]
--- NOTE | 2023-11-19 09:47 | CASEMGMT ---
RG called Cristin with [facility] and notified her patient went to the inpatient Hospice unit. Cristin thanked RG and will notify staff to close patient's case. Juana BOYD
== END 2023-11-18 19:53 | disposition hospice, inpatient (51) | DRG 193 ==
LOC: ED 21:12 → PCU 22:04
PROVIDERS: Anesthesiology; Internal Medicine; Admitting Provider Internal Medicine; Emergency Provider Emergency Medicine; PCP Internal Medicine
DX: J18.8 Other pneumonia, unspecified organism (principal); G92.8 Other toxic encephalopathy; J96.01 Acute respiratory failure with hypoxia; E43 Unspecified severe protein-calorie malnutrition; E22.2 Syndrome of inappropriate secretion of antidiuretic hormone; R64 Cachexia; C34.32 Malignant neoplasm of lower lobe, left bronchus or lung; B37.81 Candidal esophagitis; J44.1 Chronic obstructive pulmonary disease with (acute) exacerbation; J44.0 Chronic obstructive pulmonary disease with (acute) lower respiratory infection; F10.239 Alcohol dependence with withdrawal, unspecified; J90 Pleural effusion, not elsewhere classified; N39.0 Urinary tract infection, site not specified; Z68.1 Body mass index [BMI] 19.9 or less, adult; I10 Essential (primary) hypertension; I73.9 Peripheral vascular disease, unspecified; D50.9 Iron deficiency anemia, unspecified; M19.90 Unspecified osteoarthritis, unspecified site; E83.52 Hypercalcemia; L40.9 Psoriasis, unspecified; I71.43 Infrarenal abdominal aortic aneurysm, without rupture; E78.5 Hyperlipidemia, unspecified; F17.210 Nicotine dependence, cigarettes, uncomplicated; J20.9 Acute bronchitis, unspecified; R82.71 Bacteriuria; B95.2 Enterococcus as the cause of diseases classified elsewhere; G89.4 Chronic pain syndrome; Z79.891 Long term (current) use of opiate analgesic; R53.81 Other malaise; Z86.718 Personal history of other venous thrombosis and embolism
CPT/HCPCS: 36415; 36600; 51702; 70450; 71045; 71275; 78815; 80048; 80053; 80076; 80307; 81001; 82077; 82436; 82533; 82570; 82803; 82977; 83605; 83735; 83930; 83935; 84100; 84133; 84156; 84300; 84443; 85025; 85610; 85730; 87040; 87077; 87086; 87088; 87186; 87449; 92526; 92610; 93005; 94002; 94640; 94660; 94668; 97110; 97162; 97165; 97530; 97535; 97802; 99252; 99285; A9552; J7030; J7040; Q9967; A4216; G0463; J0744